=== PATIENT | male | born 1935 | race Caucasian/White ===

== ENCOUNTER → 2019-07-11 | Outpatient (CLI) | payer MEDICARE, OTHER | LOC: LAB FS 14:03 | PROVIDERS: ATTEND Family Medicine | DX: M79.89 Other specified soft tissue disorders (principal) | CPT/HCPCS: 36415; 85379 ==

== ENCOUNTER 2019-09-01 08:09 | Outpatient (RCR) | payer MEDICARE, OTHER ==
[2019-09-01 08:25] LABS: HEMATOCRIT 26 % (40-54); HEMOGLOBIN 8.5 G/DL (13.3-17.7); LYMPHOCYTES % (AUTO) 78 % (12-44); MEAN CORPUSCULAR HEMOGLOBIN 38 PG (25-34); MEAN CORPUSCULAR HGB CONC 33 G/DL (32-36); MEAN CORPUSCULAR VOLUME 114 FL (80-99); MEAN PLATELET VOLUME 9.2 FL (7.4-10.4); NEUTROPHILS % (AUTO) 12 % (42-75); PLATELET COUNT 207 10^3/uL (130-400); RED CELL DISTRIBUTION WIDTH 16.3 % (10.0-14.5); WHITE BLOOD COUNT 5.1 10^3/uL (4.3-11.0)
[2019-09-01 08:26] LABS: BASOPHILS % (AUTO) 0 % (0-10); EOSINOPHILS % (AUTO) 1 % (0-10); MONOCYTES # (AUTO) 0.5 X 10^3 (0.0-1.0); MONOCYTES % (AUTO) 10 % (0-12); NEUTROPHILS # (AUTO) 0.6 X 10^3 (1.8-7.8)
[2019-09-01 08:43] LABS: BAND NEUTROPHILS 1 %; BASOPHILS % (MANUAL) 0 %; EOSINOPHILS % (MANUAL) 3 %; LYMPHOCYTES % (MANUAL) 69 %; METAMYELOCYTES % 0 %; MONOCYTES % (MANUAL) 6 %; MYELOCYTES % 1 %; NEUTROPHILS % (MANUAL) 18 %; PROMYELOCYTES % 2 %
== END 2019-11-30 | disposition home or self-care (01) ==
LOC: LAB FS 08:09
PROVIDERS: ATTEND Internal Medicine Hematology & Oncology
DX: P59.9 Neonatal jaundice, unspecified (principal)
CPT/HCPCS: 36415; 85007; 85027

== ENCOUNTER 2019-11-24 10:40 | Outpatient (RCR) | payer MEDICARE, OTHER ==
[2019-11-24 14:45] LABS: HEMATOCRIT 37 % (40-54); HEMOGLOBIN 11.8 G/DL (13.3-17.7); LYMPHOCYTES % (AUTO) 73 % (12-44); MEAN CORPUSCULAR HEMOGLOBIN 37 PG (25-34); MEAN CORPUSCULAR HGB CONC 32 G/DL (32-36); MEAN CORPUSCULAR VOLUME 116 FL (80-99); MEAN PLATELET VOLUME 9.4 FL (7.4-10.4); MONOCYTES % (AUTO) 8 % (0-12); NEUTROPHILS % (AUTO) 14 % (42-75); PLATELET COUNT 143 10^3/uL (130-400); RED CELL DISTRIBUTION WIDTH 15.9 % (10.0-14.5)
[2019-11-24 14:46] LABS: BASOPHILS % (AUTO) 1 % (0-10); EOSINOPHILS # (AUTO) 0.2 10^3/uL (0.0-0.3); EOSINOPHILS % (AUTO) 5 % (0-10); LYMPHOCYTES # (AUTO) 2.9 X 10^3 (1.0-4.0); MONOCYTES # (AUTO) 0.3 X 10^3 (0.0-1.0); NEUTROPHILS # (AUTO) 0.6 X 10^3 (1.8-7.8)
[2019-11-24 16:03] LABS: BAND NEUTROPHILS 3 %; NEUTROPHILS % (MANUAL) 11 %
[2019-11-24 16:04] LABS: ATYPICAL LYMPHOCYTES 2 %; BASOPHILS % (MANUAL) 1 %; EOSINOPHILS % (MANUAL) 8 %; LYMPHOCYTES % (MANUAL) 71 %; MONOCYTES % (MANUAL) 4 %
== END 2020-02-22 | disposition home or self-care (01) ==
LOC: LAB FS 10:40
PROVIDERS: ATTEND Internal Medicine Hematology & Oncology
DX: D46.Z Other myelodysplastic syndromes (principal); D53.9 Nutritional anemia, unspecified
CPT/HCPCS: 36415; 85007; 85027

== ENCOUNTER → 2020-04-05 | Outpatient (CLI) | payer MEDICARE, OTHER ==
--- NOTE | 2020-04-05 10:16 | Diagnostic Imaging Report ---
Indication: Right knee pain 3 views the right knee show some meniscal calcification. Joint spaces are well-maintained. There is no fracture, dislocation or pathologic effusion. IMPRESSION: Degenerative meniscal change. No acute abnormality seen. Dictated by: Dictated on workstation # [id number]
== END ==
LOC: RAD FS 09:55
PROVIDERS: ATTEND Nurse Practitioner Family
DX: M17.11 Unilateral primary osteoarthritis, right knee (principal)
CPT/HCPCS: 73562

== ENCOUNTER → 2020-06-24 | Outpatient (CLI) | payer MEDICARE, OTHER ==
--- NOTE | 2020-06-24 15:47 | Diagnostic Imaging Report ---
PROCEDURE: MR imaging of the brain without contrast. TECHNIQUE: Multiplanar, multisequence MR imaging of the brain was performed without contrast. INDICATION: Stroke. COMPARISON: No prior studies are available for comparison. FINDINGS: Ventricles and sulci are prominent consistent with cerebral atrophy. Moderate periventricular and subcortical white matter signal foci are noted consistent with chronic microvascular ischemia. The normal expected flow voids within the carotid siphons are seen. There is no midline shift. No acute intra-axial or extra-axial hemorrhage is detected. No diffusion restriction is seen to suggest acute ischemia. The corpus callosum is unremarkable. The sella and parasellar structures are unremarkable. IMPRESSION: Chronic and senescent changes. No acute intracranial process is detected. Dictated by: Dictated on workstation # [id number]
== END ==
LOC: RAD 13:15
PROVIDERS: ATTEND Internal Medicine Hematology & Oncology
DX: I63.9 Cerebral infarction, unspecified (principal); G93.89 Other specified disorders of brain
CPT/HCPCS: 70551

== ENCOUNTER → 2022-02-26 | Outpatient (CLI) | payer MEDICARE ==
--- NOTE | 2022-02-26 16:07 | Diagnostic Imaging Report ---
PROCEDURE: MR imaging of the brain without contrast. TECHNIQUE: Multiplanar, multisequence MR imaging of the brain was performed without contrast. DATE: February 26, 2022. COMPARISON: MRI brain June 24, 2020. HISTORY: 87-year-old male, memory loss. FINDINGS: There is no restricted diffusion. There are no areas of abnormal intracranial susceptibility. There is proportional prominence of the ventricles and additional CSF spaces consistent with moderate to severe cerebral volume loss. There are extensive areas of T2 and FLAIR hyperintense signal in the periventricular and subcortical white matter which are nonspecific but most likely reflect extensive findings of chronic small vessel ischemic disease. There is no abnormal extra axial fluid collection. There is no acute intracranial hemorrhage. There is no mass effect or midline shift. There is a small polypoid lesion in the right maxillary sinus likely reflecting a mucous retention cyst or polyp. The mastoid air cells and middle ears are well-aerated. IMPRESSION: 1. No identified acute intracranial abnormality. 2. Moderate to severe cerebral volume loss and extensive probable findings of chronic small vessel ischemic disease. Dictated by: Dictated on workstation # [id number]
== END ==
LOC: RAD 14:19
PROVIDERS: ATTEND Family Medicine
DX: R41.3 Other amnesia (principal)
CPT/HCPCS: 70551

== ENCOUNTER 2022-11-15 20:11 | Emergency (ER) | payer MEDICARE ==
[~2022-11-15] VITALS: Ht 167.7 cm; Wt 68.0 kg
--- NOTE | 2022-11-15 20:22 | ED Head Injury ---
General Stated Complaint: FALL History of Present Illness Date Seen by Provider: Nov 15, 2022 Time Seen by Provider: 20:22 Initial Comments 87-year-old male with PMH of TIA/dementia/myelodysplasia who is on Eliquis to prevent clots forming from the medication he is on for the myelodysplasia, is brought in by EMS for 2 falls he had today. The first fall he had in the morning, he lost balance and fell back hitting the back of his head on the doorknob which resulted in a small puncture wound that bled a lot at home. Patient's states that the bleeding eventually stopped and he was okay. Then in the evening patient again had another fall in the bathroom due to imbalance, and fell backwards into the bathtub, and his could not get him out, and so she called 911. Since patient is on Eliquis, patient was brought to the ER to make sure he does not have any bleeding in his brain. In the ER there is no active external bleeding. Denies LOC with either fall, dizziness, headache, blurry vision, chest pain, shortness of breath. Allergies and Home Medications Allergies Coded Allergies: No Known Drug Allergies (Unverified , 11/15/22) Patient Home Medication List Home Medication List Reviewed: Yes Review of Systems Review of Systems Constitutional: no symptoms reported Eyes: No Symptoms Reported Ears, Nose, Mouth, Throat: no symptoms reported Respiratory: no symptoms reported Cardiovascular: no symptoms reported Gastrointestinal: no symptoms reported Genitourinary: no symptoms reported Musculoskeletal: no symptoms reported Skin: lesions Psychiatric/Neurological: See HPI Endocrine: No Symptoms Reported Hematologic/Lymphatic: No Symptoms Reported Physical Exam Vital Signs Vital Signs - First Documented Capillary Refill : Height, Weight, BMI Height: '" Weight: lbs. oz. kg; BMI Method: General Appearance: WD/WN, no apparent distress HEENT: PERRL/EOMI, normal ENT inspection Neck: non-tender, full range of motion, supple, normal inspection Cardiovascular: regular rate, rhythm Respiratory: chest non-tender, lungs clear, normal breath sounds Gastrointestinal: non tender, soft Back: normal inspection, no vertebral tenderness Extremities: normal range of motion Psychiatric: alert, oriented x 3 Crainal Nerves: normal hearing, normal speech, PERRL, other (Small 1 cm puncture wound which is superficial, is present in the subdural area of the scalp. No active bleeding. No need for sutures or ho.) Coordination/Gait: normal finger to nose Motor/Sensory: no motor deficit, no sensory deficit [place] Coma Score Best Eye Response: (4) Open Spontaneously Best Verbal Response: (5) Oriented Best Motor Response: (6) Obeys Commands Sandra Total: 15 Progress/Results/Core Measures Results/Orders My Orders Orders - MYA SERNA MD Ct Head Wo (11/15/22 20:22) Vital Signs/I&O 11/15/22 11/15/22 20:11 20:11 Temp 37.0 37.0 Pulse 74 74 Resp 16 16 B/P (MAP) 177/82 (113) 177/82 (113) Pulse Ox 97 97 O2 Delivery Room Air Room Air Progress Progress Note : Progress Note 1. FALL/ SCALP LACERATION: - CT HEAD: No acute finding -Concussion precautions given -Tylenol as needed for headache -Follow-up with PCP within the next 7 days -The patient was seen in the ED, and treated appropriately to presentation at a specific point in time. Patient is informed that there is a possibility that disease and illness can evolve and change in acuity rapidly or slowly after patient is discharged from the ER. Precautionary advice given to the patient for immediate return to ER if symptoms worsen or do not resolve, and to seek emergency care sooner rather than later. Pt also advised on the importance of PCP follow up and compliance with management and follow up plan with PCP and/or specialist, as this is part of the management plan. Pt verbally expressed understanding. Diagnostic Imaging Diagonstic Imaging: CT Plain Films/CT/US/NM/MRI: head Comments [facility] [place], [place] NAME: HOOD BARBA [facility] REC#: [id number] PT STATUS: REG ER : 1935 PHYSICIAN: MYA SERNA MD ADMIT DATE: 11/15/22/ER FS Draft Date of Exam:11/15/22 CT HEAD WO PROCEDURE: CT head without contrast. TECHNIQUE: Multiple contiguous axial images were obtained through the brain without the use of intravenous contrast. Auto Exposure Controls were utilized during the CT exam to meet ALARA standards for radiation dose reduction. INDICATION: Head trauma while on blood thinners. FINDINGS: There is prominence of the ventricles and sulci. There is no hydrocephalus or cerebral edema. There is no midline shift or mass-effect. There is no intracranial mass, hemorrhage or extra-axial fluid collection. There is some diffuse decreased attenuation of the periventricular white matter which is nonspecific. The visualized paranasal sinuses and mastoid air cells are clear. There is no regional area of decreased attenuation appreciated to suggest an acute CVA. IMPRESSION: 1. No acute intracranial process. 2. Age-appropriate atrophy. 3. Decreased attenuation of the periventricular white matter which is nonspecific, however, likely reflects senescent change and/or chronic small vessel ischemic disease. Dictated on workstation # [id number] Dict: 11/15/222040 Trans: 11/15/222042 [facility] [id number] Interpreted by: YAMILE ZARAGOZA MD Electronically signed by: Departure Impression Primary Impression: Recurrent falls Additional Impression: Occipital scalp laceration Qualified Codes: S01.01XA - Laceration without foreign body of scalp, initial encounter Disposition: HOME, SELF-CARE Condition: Stable Departure-Patient Inst. Referrals: EARLENE CARDONA MD (PCP/Family) Primary Care Physician Patient Instructions: Concussion, Adult (DC), Preventing Falls in Older Adults Add. Discharge Instructions: -Concussion precautions given -Tylenol as needed for headache -Follow-up with PCP within the next 7 days - Patient is informed that there is a possibility that disease and illness can evolve and change in acuity rapidly or slowly after patient is discharged from the ER. Precautionary advice given to the patient for immediate return to ER if symptoms worsen or do not resolve, and to seek emergency care sooner rather than later. Pt also advised on the importance of PCP follow up and compliance with management and follow up plan with PCP and/or specialist, as this is part of the management plan. MYA SERNA MD Nov 15, 2022 20:22
--- NOTE | 2022-11-15 20:43 | Diagnostic Imaging Report ---
PROCEDURE: CT head without contrast. TECHNIQUE: Multiple contiguous axial images were obtained through the brain without the use of intravenous contrast. Auto Exposure Controls were utilized during the CT exam to meet ALARA standards for radiation dose reduction. INDICATION: Head trauma while on blood thinners. FINDINGS: There is prominence of the ventricles and sulci. There is no hydrocephalus or cerebral edema. There is no midline shift or mass-effect. There is no intracranial mass, hemorrhage or extra-axial fluid collection. There is some diffuse decreased attenuation of the periventricular white matter which is nonspecific. The visualized paranasal sinuses and mastoid air cells are clear. There is no regional area of decreased attenuation appreciated to suggest an acute CVA. IMPRESSION: 1. No acute intracranial process. 2. Age-appropriate atrophy. 3. Decreased attenuation of the periventricular white matter which is nonspecific, however, likely reflects senescent change and/or chronic small vessel ischemic disease. Dictated by: Dictated on workstation # [id number]
[2022-11-15 21:30] VITALS: BP 177/82
== END 2022-11-15 21:31 | disposition home or self-care (01) ==
LOC: EDUNIT# 20:17 → ER FS 20:20
DX: S01.01XA Laceration without foreign body of scalp, initial encounter (principal); D46.9 Myelodysplastic syndrome, unspecified; Z79.01 Long term (current) use of anticoagulants; Z91.81 History of falling; W18.30XA Fall on same level, unspecified, initial encounter; W22.09XA Striking against other stationary object, initial encounter; Y92.002 Bathroom of unspecified non-institutional (private) residence as the place of occurrence of the external cause
CPT/HCPCS: 70450

== ENCOUNTER 2022-12-20 15:11 | Emergency (ER) | payer MEDICARE ==
[2022-12-20 15:44] LABS: BILIRUBIN,URINE NEGATIVE (NEGATIVE); CLARITY,URINE CLEAR; COLOR,URINE YELLOW; GLUCOSE, URINE (UA) TRACE (NEGATIVE); KETONES,URINE TRACE (NEGATIVE); LEUKOCYTE ESTERASE ,URINE NEGATIVE (NEGATIVE); NITRITE,URINE NEGATIVE (NEGATIVE); PROTEIN,URINE 2+ (NEGATIVE)
[2022-12-20 15:46] LABS: BACTERIA,URINE FEW /HPF
--- NOTE | 2022-12-20 15:55 | ED Fall/Injury ---
General Chief Complaint: Back Problems Stated Complaint: BACK PAIN Nursing Triage Note: Patient presents the ED with c/o lower back and pelvic pain after a fall. Patients reports patient fell morning. Patients states she has been administering Ibuprofen and alternating hot and cold compresses to patient's lower back. Patient reports pain has not improved. Source: patient History of Present Illness Date Seen by Provider: Dec 20, 2022 Time Seen by Provider: 15:17 Initial Comments 87 yo male presenting with family to the ED due to complaint of low back pain and suprapubic pain that has not improved since he had a fall 12/17. He has chronic balance issues and frequent falls despite using a walker. He usually is able to take Acetaminophen and or Ibuprofen and help control his pain. he also has tried alternating ice and heat to the low back but it was not improving so they decided to come to the ED to be evaluated for possible compression fracture or broken bone making the pain not go away. He denies hitting his head or losing consciousness. Occurred: other (12/17) Severity: moderate Injuries/Pain Location: abdomen (Suprapubic pain), back (lumbar spine pain) Context: lost balance Loss of Consciousness: no loss of consciousness Modifying Factors: Worse With Movement; Improves With Pain Medication (Tylenol is helping some) Associated Symptoms (Fall): Abdominal Pain (Suprapubic pain); No Chest Pain, No Confusion, No Dizziness, No Headache, No Lightheadedness, No Muscle Spasms, No Nausea/Vomiting, No Neck Pain, No Ringing in Ears, No Seizures, No Shortness of Air, No Slurred Speech; Trouble Walking (Chronic trouble walking but felt like his low back was worse since the fall on December 17) Allergies and Home Medications Allergies Coded Allergies: No Known Drug Allergies (Unverified , 11/15/22) Patient Home Medication List Home Medication List Reviewed: Yes Cephalexin (Cephalexin) 500 Mg Capsule, 500 MG PO TID Prescribed by: JAVID PAT on 12/20/22 163 Lidocaine (Lidocaine 5% Patch) 5 % Adh..patch, 1 EACH TP Q12H PRN for Lumbar pain/compression fx Prescribed by: JAVID PAT on 12/20/22 1635 Review of Systems Review of Systems Constitutional: No chills, No fever Eyes: Denies Blurred Vision, Denies Photophobia, Denies Vision Changes Ears, Nose, Mouth, Throat: denies ear pain, denies ear discharge, denies nose pain, denies nose discharge, denies epistaxis Respiratory: no symptoms reported Cardiovascular: no symptoms reported Gastrointestinal: see HPI Genitourinary: see HPI Musculoskeletal: see HPI Skin: No change in color (No bruising or change in color noted) Psychiatric/Neurological: Denies Numbness, Denies Paresthesia Past Kcnndtn-Ejytxt-Vooank Hx Patient Social History Tobacco Use?: No Use of E-Cig and/or Vaping dev: No Substance use?: No Alcohol Use?: Yes Alcohol type: Beer Alcohol Frequency: Rarely Pt feels they are or have been: No Immunizations Up To Date Influenza Vaccine Up-to-Date: Yes; Up-to-Date Past Medical History Surgery/Hospitalization HX: TIA; Mylodysplastic syndrome; CABAG; Rotator cuff repair; Vertigo; Physical Exam Vital Signs Vital Signs - First Documented 12/20/22 15:25 Temp 36.1 Pulse 71 Resp 16 B/P (MAP) 169/89 (115) Pulse Ox 98 O2 Delivery Room Air Capillary Refill : Less Than 3 Seconds Height, Weight, BMI Height: '" Weight: lbs. oz. kg; 24.00 BMI Method: General Appearance: WD/WN, no apparent distress HEENT: PERRL/EOMI, pharynx normal Neck: non-tender, full range of motion, supple, normal inspection Cardiovascular: normal peripheral pulses, regular rate, rhythm Respiratory: chest non-tender, lungs clear, normal breath sounds Gastrointestinal: normal bowel sounds, soft, no pulsatile mass; No distended, No guarding, No rebound; tenderness (Mild suprapubic tenderness to palpation) Back: no CVA tenderness, no vertebral tenderness (Points to his lower lumbar spine as area of pain but was not painful for palpation.) Extremities: normal range of motion, non-tender, normal capillary refill 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, no motor/sensory deficits, alert, oriented x 3 Skin: normal color, warm/dry Progress/Results/Core Measures Results/Orders Lab Results Laboratory Tests Test 12/20/22 15:25 Range/Units Urine Color YELLOW Urine Clarity CLEAR Urine pH 6.0 5-9 Urine Specific [place] 1.025 H 1.016-1.022 Urine Protein 2+ H NEGATIVE Urine Glucose (UA) TRACE H NEGATIVE Urine Ketones TRACE H NEGATIVE Urine Nitrite NEGATIVE NEGATIVE Urine Bilirubin NEGATIVE NEGATIVE Urine Urobilinogen 0.2 < = 1.0 MG/DL Urine Leukocyte Esterase NEGATIVE NEGATIVE Urine RBC (Auto) 1+ H NEGATIVE Urine RBC 2-5 H /HPF Urine WBC 5-10 H /HPF Urine Squamous Epithelial Cells 2-5 /HPF Urine Crystals NONE /LPF Urine Bacteria FEW H /HPF Urine Casts NONE /LPF Urine Mucus MODERATE H /LPF Urine Culture Indicated YES My Orders Orders - JAVID PAT MD Ua Culture If Indicated (12/20/22 15:39) Ct Abdomen/Pelvis Wo (12/20/22 15:40) Urine Culture (12/20/22 15:25) Vital Signs/I&O 12/20/22 12/20/22 15:25 16:49 Temp 36.1 36.1 Pulse 71 71 Resp 16 16 B/P (MAP) 169/89 (115) 169/89 Pulse Ox 98 98 O2 Delivery Room Air Room Air Blood Pressure Mean: 115 Progress Progress Note #1: Progress Note Potential diagnosis of lumbar spine compression fracture, musculoskeletal back pain, paraspinal muscle strain, pubic ramus fracture, contusion of the low back. Obtain urinalysis to look for UTI. We will also obtain a CT scan of the abdomen and pelvis to look at the abdominal pain as well as low back. Progress Note #2: Progress Note On my personal interpretation and review of his CT scan of abdomen/pelvis without IV contrast he has compression fracture of L2 but unsure if it was acute or chronic. I did not appreciate any acute intra-abdominal pathology to cause his pain. Urinalysis showed WBC with bacteria so will cover him for UTI with cephalexin 500 mg po tid x 7 days. Progress Note #3: Progress Note I reviewed the radiologist report that the CT scan of the abdomen and pelvis without IV contrast. They felt that there were endplate compression fractures of L1 and L2 and indeterminate acuity versus acute on subacute. There is no significant cord compression. I reviewed the findings with the patient and family. Counseled on continuing acetaminophen and ibuprofen as needed for helping with pain. Will also send prescription for lidocaine patches 5% to wear 12 hours and off 12 hours to help with his low back pain. This would help prevent him from having a narcotic or additional pain medicine that can make him more unsteady. Encouraged follow-up with clinic and they may consider pain management or possible vertebroplasty to help with his symptoms if it persist or worsens. Take antibiotics to help treat for UTI and make sure he is drinking plenty of fluids. Diagnostic Imaging Diagonstic Imaging: CT Plain Films/CT/US/NM/MRI: abdomen, pelvis Comments [facility] [place], [place] NAME: HOOD BARBA [facility] REC#: [id number] PT STATUS: REG ER : 1935 PHYSICIAN: JAVID PAT MD ADMIT DATE: 12/20/22/ER FS Signed Date of Exam:12/20/22 CT ABDOMEN/PELVIS WO PROCEDURE: CT abdomen and pelvis without contrast. TECHNIQUE: Multiple contiguous axial images were obtained through the abdomen and pelvis without the use of intravenous contrast. Auto Exposure Controls were utilized during the CT exam to meet ALARA standards for radiation dose reduction. INDICATION: Fall results in suprapubic and back pain. COMPARISON: No relevant comparison. FINDINGS: There are L1 and L2 superior endplate fracture deformities. The L1 superior endplate shows mild retropulsion of about 2 mm. There is some adjacent paraspinal stranding however the fracture appears sclerotic. The L2 fracture shows convincing acute to subacute lucent components also with some paraspinal stranding. L2 fracture of superior endplate is retropulsed about 2 mm. The remaining lumbar statures appear unremarkable. There is no listhesis. No facet dislocation. The bony 3rd column is degenerated but nonacute throughout the visible lumbar and thoracic spine. The bony pelvis shows demineralization and degenerative disease but no pelvic fracture. There is noninflamed sigmoid diverticulosis. No findings of abdominopelvic intraperitoneal hemorrhage. There are gallstones within the lumen of the distended gallbladder. No bile duct dilatation. Spleen, adrenals and pancreas nonacute. The atherosclerotic aorta is nonaneurysmal. The lung bases nonacute. There is a tiny left pleural effusion and a benign granuloma in the right lower lobe lung. The visible lower rib segments appear nonacute. IMPRESSION: Acute to subacute appearing L2 superior endplate fracture with mild retropulsion and no involvement of the bony 3rd column and L1 superior endplate fracture is mildly retropulsed but is more acuity indeterminate. No other potential recent injury and no listhesis. No findings of this unenhanced exam to suggest abdominopelvic solid or hollow visceral injury. Stones within the lumen of the distended gallbladder noted. Dictated by: Dictated on workstation # [id number] Dict: 12/20/22 1604 Trans: 12/20/22 1636 PJE [id number] Interpreted by: SHANNON SMALL Electronically signed by: SHANNON SMALL 12/20/22 9006 Reviewed: Reviewed by Me Departure Impression Primary Impression: Compression fracture of second lumbar vertebra Qualified Codes: S32.020A - Wedge compression fracture of second lumbar vertebra, initial encounter for closed fracture Additional Impressions: Frequent falls Acute cystitis without hematuria Disposition: HOME, SELF-CARE Condition: Stable Departure-Patient Inst. Decision time for Depature: 16:49 Referrals: EARLENE CARDONA MD (PCP) Primary Care Physician Patient Instructions: Vertebral Compression Fracture ED, Urinary Tract Infection, Adult ED Add. Discharge Instructions: Try to stay well-hydrated to drink plenty of fluids and help treat the urine infection. Take the full course of antibiotics for the urine infection. Continue with alternating ice and heat to the low back for pain. All discharge instructions reviewed with patient and/or family. Voiced understanding. Scripts Lidocaine (Lidocaine 5% Patch) 5 % Adh..patch 1 EACH TP Q12H PRN for Lumbar pain/compression fx MDD 2 for 15 Days, #15 PATCH 0 Refills 2 patches max for 12 hours, then 12 hours patch-free period. Prov: JAVID PAT MD 12/20/22 Cephalexin (Cephalexin) 500 Mg Capsule 500 MG PO TID for UTI for 7 Days, #21 CAP 0 Refills Prov: JAVID PAT MD 12/20/22 JAVID PAT MD Dec 20, 2022 15:55
--- NOTE | 2022-12-20 16:23 | Diagnostic Imaging Report ---
PROCEDURE: CT abdomen and pelvis without contrast. TECHNIQUE: Multiple contiguous axial images were obtained through the abdomen and pelvis without the use of intravenous contrast. Auto Exposure Controls were utilized during the CT exam to meet ALARA standards for radiation dose reduction. INDICATION: Fall results in suprapubic and back pain. COMPARISON: No relevant comparison. FINDINGS: There are L1 and L2 superior endplate fracture deformities. The L1 superior endplate shows mild retropulsion of about 2 mm. There is some adjacent paraspinal stranding however the fracture appears sclerotic. The L2 fracture shows convincing acute to subacute lucent components also with some paraspinal stranding. L2 fracture of superior endplate is retropulsed about 2 mm. The remaining lumbar statures appear unremarkable. There is no listhesis. No facet dislocation. The bony 3rd column is degenerated but nonacute throughout the visible lumbar and thoracic spine. The bony pelvis shows demineralization and degenerative disease but no pelvic fracture. There is noninflamed sigmoid diverticulosis. No findings of abdominopelvic intraperitoneal hemorrhage. There are gallstones within the lumen of the distended gallbladder. No bile duct dilatation. Spleen, adrenals and pancreas nonacute. The atherosclerotic aorta is nonaneurysmal. The lung bases nonacute. There is a tiny left pleural effusion and a benign granuloma in the right lower lobe lung. The visible lower rib segments appear nonacute. IMPRESSION: Acute to subacute appearing L2 superior endplate fracture with mild retropulsion and no involvement of the bony 3rd column and L1 superior endplate fracture is mildly retropulsed but is more acuity indeterminate. No other potential recent injury and no listhesis. No findings of this unenhanced exam to suggest abdominopelvic solid or hollow visceral injury. Stones within the lumen of the distended gallbladder noted. Dictated by: Dictated on workstation # [id number]
[2022-12-20] MEDS ORDERED: CEPH500C PO (16:34)
[2022-12-20] MEDS ORDERED: LIDO700A45 TP (16:35)
[2022-12-20 16:49] VITALS: BP 169/89
== END 2022-12-20 16:49 | disposition home or self-care (01) ==
LOC: EDUNIT# 15:11 → ER FS 15:12
DX: S32.028A Other fracture of second lumbar vertebra, initial encounter for closed fracture (principal); N30.00 Acute cystitis without hematuria; R82.71 Bacteriuria; W18.30XA Fall on same level, unspecified, initial encounter
CPT/HCPCS: 74176; 81000; 87088

== ENCOUNTER 2023-07-07 17:31 | Emergency (ER) | payer MEDICARE ==
[~2023-07-07] VITALS: Ht 167 cm; Wt 59.8 kg
[~2023-07-07 17:31] MED LIST: CEPH500C PO; LIDO700A45 TP
--- NOTE | 2023-07-07 17:43 | ED Fall/Injury ---
General Chief Complaint: Trauma-Non Activation Stated Complaint: FALL,HEAD LAC Source: patient, family History of Present Illness Date Seen by Provider: Jul 07, 2023 Time Seen by Provider: 17:34 Initial Comments 88-year-old male presenting from home by private vehicle after having a fall approximately an hour prior to arrival. He has an abrasion to his right scalp on the frontal area. Bleeding is controlled. He is not having any nausea or vomiting. Family reported that patient is taking Eliquis. He has general weakness and is hard of hearing as well as slow to answer questions. Occurred: this evening Severity: mild Injuries/Pain Location: head (right frontal scalp abrasion) Context: tripped Loss of Consciousness: no loss of consciousness Associated Symptoms (Fall): No Abdominal Pain, No Chest Pain; Confusion (dementia), Headache; No Nausea/Vomiting, No Neck Pain; Trouble Walking Allergies and Home Medications Allergies Coded Allergies: No Known Drug Allergies (Unverified , 11/15/22) Patient Home Medication List Home Medication List Reviewed: Yes Cephalexin (Cephalexin) 500 Mg Capsule, 500 MG PO TID Prescribed by: JAVID PAT on 12/20/22 1634 Lidocaine (Lidocaine 5% Patch) 5 % Adh..patch, 1 EACH TP Q12H PRN for Lumbar pain/compression fx Prescribed by: JAVID PAT on 12/20/22 1635 Review of Systems Review of Systems Constitutional: No chills, No fever; weakness (general) Eyes: No Symptoms Reported Ears, Nose, Mouth, Throat: no symptoms reported Respiratory: no symptoms reported Cardiovascular: no symptoms reported Gastrointestinal: no symptoms reported Skin: see HPI (abrasion to right frontal scalp) Psychiatric/Neurological: Headache, Weakness (generalized) Past Leshbpe-Hztbhs-Hytplv Hx Past Medical History Surgery/Hospitalization HX: TIA; Mylodysplastic syndrome; CABAG; Rotator cuff repair; Vertigo; Physical Exam Vital Signs Vital Signs - First Documented 07/07/23 17:36 Temp 36.3 Pulse 66 Resp 16 B/P (MAP) 172/62 (98) Pulse Ox 96 O2 Delivery Room Air Capillary Refill : Height, Weight, BMI Height: '" Weight: lbs. oz. kg; 24.00 BMI Method: General Appearance: no apparent distress HEENT: PERRL/EOMI Neck: non-tender, full range of motion, supple Cardiovascular: normal peripheral pulses Respiratory: chest non-tender, lungs clear, normal breath sounds Gastrointestinal: normal bowel sounds, non tender, soft Extremities: normal range of motion, non-tender Neurologic/Psychiatric: alert Skin: warm/dry, other (superficial abrasion right frontal scalp) Sandra Coma Score Best Eye Response: (4) Open Spontaneously Best Verbal Response: (4) Confused Conversation Best Motor Response: (6) Obeys Commands Sandra Total: 14 Progress/Results/Core Measures Results/Orders Lab Results Laboratory Tests Test 07/07/23 17:45 Range/Units Urine Color YELLOW Urine Clarity CLEAR Urine pH 6.5 5-9 Urine Specific [place] 1.010 L 1.016-1.022 Urine Protein TRACE H NEGATIVE Urine Glucose (UA) NEGATIVE NEGATIVE Urine Ketones NEGATIVE NEGATIVE Urine Nitrite NEGATIVE NEGATIVE Urine Bilirubin NEGATIVE NEGATIVE Urine Urobilinogen 0.2 < = 1.0 MG/DL Urine Leukocyte Esterase NEGATIVE NEGATIVE Urine RBC (Auto) 3+ H NEGATIVE Urine RBC 25-50 H /HPF Urine WBC NONE /HPF Urine Crystals NONE /LPF Urine Bacteria NEGATIVE /HPF Urine Casts NONE /LPF Urine Mucus NEGATIVE /LPF Urine Culture Indicated NO My Orders Orders - JAVID APT MD Ua Culture If Indicated (07/07/23 17:37) Ct Head Wo (07/07/23 17:37) Straight Cath For Spec.-Adult (07/07/23 17:43) Vital Signs/I&O 07/07/23 07/07/23 17:36 18:39 Temp 36.3 Pulse 66 60 Resp 16 16 B/P (MAP) 172/62 (98) 160/69 Pulse Ox 96 95 O2 Delivery Room Air Room Air Progress Progress Note #1: Progress Note Differential diagnosis includes subarachnoid hemorrhage, subdural hemorrhage, intracranial hemorrhage, skull fracture, minor head injury, concussion without loss of consciousness, UTI. Family reports patient is taking Eliquis. He does have a history of myelodysplastic syndrome. Order CT scan of the head without contrast to look for acute bleeding or fracture. Straight cath UA to check his urine for infection. Progress Note #2: Time: 18:24 Progress Note Straight cath urinalysis did not demonstrate infection. There was some blood likely secondary to the straight cath. CT scan of the head was read out as no acute intracranial hemorrhage or process. He has chronic senescent changes. D/w Daughter, his main caregiver. She advised that the patient has been having weakness after he gets a shot to treat side effects of his other medicines. They recently gave him a 1 month holiday and he regained some strength. Then he got his first reduced dose yesterday. She was relieved to hear that he did not have any bleeding since he takes eliquis. Discharge back to home. Counseled on follow up and return precautions. Diagnostic Imaging Diagonstic Imaging: CT Plain Films/CT/US/NM/MRI: head Comments NAME: HOOD BARBA [facility] REC#: [id number] PT STATUS: REG ER : 1935 PHYSICIAN: JAVID PAT MD ADMIT DATE: 07/07/23/ER FS Draft Date of Exam:07/07/23 CT HEAD WO PROCEDURE: CT head without contrast. TECHNIQUE: Multiple contiguous axial images were obtained through the brain without the use of intravenous contrast. Auto Exposure Controls were utilized during the CT exam to meet ALARA standards for radiation dose reduction. INDICATION: Head injury from a fall with right scalp abrasion There is generalized atrophy. There is decreased density in the periventricular white matter both hemispheres. There are no intracranial hemorrhages. There are no masses or pathologic extra-axial fluid collections. There are no skull fractures seen. IMPRESSION: Senescent changes of the brain with diffuse cerebral degeneration and chronic ischemic leukoencephalopathy. No acute intracranial abnormalities seen. Dictated on workstation # [id number] Dict: 07/07/23 1808 Trans: 07/07/23 1812 [facility] [id number] Interpreted by: FABIOLA CONDE MD Electronically signed by: Reviewed: Reviewed by Me Departure Impression Primary Impression: Minor head injury without loss of consciousness Qualified Codes: S09.90XA - Unspecified injury of head, initial encounter Additional Impressions: Abrasion of scalp, initial encounter Fall at home Qualified Codes: W19.XXXA - Unspecified fall, initial encounter; Y92.009 - Unspecified place in unspecified non-institutional (private) residence as the place of occurrence of the external cause Disposition: 01 HOME, SELF-CARE Condition: Stable Departure-Patient Inst. Decision time for Depature: 18:32 Referrals: EARLENE CARDONA MD (PCP/Family) Primary Care Physician Patient Instructions: Preventing Falls ED, Minor Head Injury, Adult ED Add. Discharge Instructions: CT scan does not show bleeding, skull fracture or acute stroke. His urine was clear of infection. Follow up with primary care about falling and weakness. All discharge instructions reviewed with patient and/or family. Voiced understanding. JAVID PAT MD Jul 07, 2023 17:43
[2023-07-07 17:56] LABS: BILIRUBIN,URINE NEGATIVE (NEGATIVE); CLARITY,URINE CLEAR; COLOR,URINE YELLOW; GLUCOSE, URINE (UA) NEGATIVE (NEGATIVE); KETONES,URINE NEGATIVE (NEGATIVE); LEUKOCYTE ESTERASE ,URINE NEGATIVE (NEGATIVE); NITRITE,URINE NEGATIVE (NEGATIVE); PH,URINE 6.5 (5-9); PROTEIN,URINE TRACE (NEGATIVE)
[2023-07-07 18:00] LABS: RBC,URINE 25-50 /HPF
[2023-07-07 18:01] LABS: BACTERIA,URINE NEGATIVE /HPF
--- NOTE | 2023-07-07 18:12 | Diagnostic Imaging Report ---
PROCEDURE: CT head without contrast. TECHNIQUE: Multiple contiguous axial images were obtained through the brain without the use of intravenous contrast. Auto Exposure Controls were utilized during the CT exam to meet ALARA standards for radiation dose reduction. INDICATION: Head injury from a fall with right scalp abrasion There is generalized atrophy. There is decreased density in the periventricular white matter both hemispheres. There are no intracranial hemorrhages. There are no masses or pathologic extra-axial fluid collections. There are no skull fractures seen. IMPRESSION: Senescent changes of the brain with diffuse cerebral degeneration and chronic ischemic leukoencephalopathy. No acute intracranial abnormalities seen. Dictated by: Dictated on workstation # [id number]
[2023-07-07 18:39] VITALS: BP 160/69
== END 2023-07-07 18:39 | disposition home or self-care (01) ==
LOC: EDUNIT# 17:31 → ER FS 17:32
DX: S09.90XA Unspecified injury of head, initial encounter (principal); S00.01XA Abrasion of scalp, initial encounter; W01.0XXA Fall on same level from slipping, tripping and stumbling without subsequent striking against object, initial encounter; Y92.009 Unspecified place in unspecified non-institutional (private) residence as the place of occurrence of the external cause
CPT/HCPCS: 51701; 70450; 81000

== ENCOUNTER 2023-07-10 12:32 | Inpatient (IN) | payer MEDICARE ==
[~2023-07-10] VITALS: Ht 167 cm; Wt 54.0 kg
--- NOTE | 2023-07-10 12:38 | ED General ---
General Stated Complaint: AMS History of Present Illness Date Seen by Provider: Jul 10, 2023 Time Seen by Provider: 12:37 Initial Comments 88 yr M with PMH of Alzheimer's Dementia/ Myelodysplasia/ CAD with stents in 2007 on Eliquis, is brought in by EMS with c/o generalized weakness for the past few days.. Patient is unable to provide history due to his dementia and is the historian. Patient has been having multiple falls and was brought in by EMS a couple days ago on July 07 and had a head CT which was negative. Patient is unable to stand on his own today and is extremely lethargic. Patient's reports that he has not been drinking anything at all over the past few days. No known sick contacts. Denies fever and chills, nausea and vomiting, diarrhea, cough. Allergies and Home Medications Allergies Coded Allergies: No Known Drug Allergies (Unverified , 11/15/22) Patient Home Medication List Home Medication List Reviewed: Yes Cephalexin (Cephalexin) 500 Mg Capsule, 500 MG PO TID Prescribed by: JAVID PAT on 12/20/22 1634 Lidocaine (Lidocaine 5% Patch) 5 % Adh..patch, 1 EACH TP Q12H PRN for Lumbar pain/compression fx Prescribed by: JAVID PAT on 12/20/22 1635 Review of Systems Review of Systems Constitutional: see HPI, malaise Psychiatric/Neurological: See HPI Past Mqaswkn-Qezlyv-Ntxnpp Hx Past Medical History Surgery/Hospitalization HX: TIA; Mylodysplastic syndrome; CABAG; Rotator cuff repair; Vertigo; Physical Exam Vital Signs Vital Signs - First Documented 07/10/23 12:32 Temp 36.5 Pulse 70 Resp 15 B/P (MAP) 159/64 (95) O2 Delivery Room Air Capillary Refill : Height, Weight, BMI Height: '" Weight: lbs. oz. kg; 21.00 BMI Method: General Appearance: No Apparent Distress, WD/WN, Thin, Other (Dry mucous membranes and tenting of skin present) HEENT: PERRL/EOMI, Normal ENT Inspection Neck: Full Range of Motion, Normal Inspection Respiratory: Chest Non Tender, Lungs Clear, Normal Breath Sounds, No Accessory Muscle Use Cardiovascular: Regular Rate, Rhythm, No Edema Gastrointestinal: Normal Bowel Sounds, Non Tender, Soft Back: Normal Inspection, No CVA Tenderness Neurologic/Psychiatric: Alert, Other (Patient has dementia so difficult to do a HOT STICK MAN exam since patient is not really able to cooperate or participate actively in the exam) Skin: Pallor Progress/Results/Core Measures Suspected Sepsis SIRS Temperature: Pulse: Respiratory Rate: Laboratory Tests 07/10/23 12:53: White Blood Count 4.2L Blood Pressure / Mean: Laboratory Tests 07/10/23 12:53: Creatinine 1.45H, INR Comment 1.1, Platelet Count 120L, Total Bilirubin 2.9H Results/Orders Lab Results Laboratory Tests Test 07/10/23 12:53 07/10/23 13:28 07/10/23 13:45 Range/Units White Blood Count 4.2 L 4.3-11.0 10^3/uL Red Blood Count 2.82 L 4.30-5.52 10^6/uL Hemoglobin 11.0 L 13.3-17.7 g/dL Hematocrit 33 L 40-54 % Mean Corpuscular Volume 118 H 80-99 fL Mean Corpuscular Hemoglobin 39 H 25-34 pg Mean Corpuscular Hemoglobin Concent 33 32-36 g/dL Red Cell Distribution Width 15.9 H 10.0-14.5 % Platelet Count 120 L 130-400 10^3/uL Mean Platelet Volume 10.8 9.0-12.2 fL Immature Granulocyte % (Auto) 1 % Neutrophils (%) (Auto) 30 L 42-75 % Lymphocytes (%) (Auto) 64 H 12-44 % Monocytes (%) (Auto) 4 0-12 % Eosinophils (%) (Auto) 0 0-10 % Basophils (%) (Auto) 1 0-10 % Neutrophils # (Auto) 1.3 L 1.8-7.8 10^3/uL Lymphocytes # (Auto) 2.7 1.0-4.0 10^3/uL Monocytes # (Auto) 0.2 0.0-1.0 10^3/uL Eosinophils # (Auto) 0.0 0.0-0.3 10^3/uL Basophils # (Auto) 0.0 0.0-0.1 10^3/uL Immature Granulocyte # (Auto) 0.0 0.0-0.1 10^3/uL Percent Immature Platelet Fraction 5.5 0.0-7.6 % Prothrombin Time 14.1 12.2-14.7 SEC INR Comment 1.1 0.8-1.4 Activated Partial Thromboplast Time 31 24-35 SEC Sodium Level 140 135-145 MMOL/L Potassium Level 3.7 3.6-5.0 MMOL/L Chloride Level 101 98-107 MMOL/L Carbon Dioxide Level 27 21-32 MMOL/L Anion Gap 12 5-14 MMOL/L Blood Urea Nitrogen 21 H 7-18 MG/DL Creatinine 1.45 H 0.60-1.30 MG/DL Estimat Glomerular Filtration Rate 46 BUN/Creatinine Ratio 14 Glucose Level 98 70-105 MG/DL Calcium Level 9.1 8.5-10.1 MG/DL Corrected Calcium 9.7 8.5-10.1 MG/DL Magnesium Level 2.1 1.6-2.4 MG/DL Total Bilirubin 2.9 H 0.1-1.0 MG/DL Aspartate Amino Transf (AST/SGOT) 20 5-34 U/L Alanine Aminotransferase (ALT/SGPT) 11 0-55 U/L Alkaline Phosphatase 111 40-136 U/L Troponin I < 0.30 <0.30 NG/ML Pro-B-Type Natriuretic Peptide 53210.0 H <450.0 PG/ML Total Protein 6.4 6.4-8.2 GM/DL Albumin 3.3 3.2-4.5 GM/DL Urine Color YELLOW Urine Clarity TURBID Urine pH 6.0 5-9 Urine Specific [place] 1.020 1.016-1.022 Urine Protein 2+ H NEGATIVE Urine Glucose (UA) NEGATIVE NEGATIVE Urine Ketones TRACE H NEGATIVE Urine Nitrite POSITIVE H NEGATIVE Urine Bilirubin NEGATIVE NEGATIVE Urine Urobilinogen 0.2 < = 1.0 MG/DL Urine Leukocyte Esterase 3+ H NEGATIVE Urine RBC (Auto) 2+ H NEGATIVE Urine RBC /HPF Urine WBC TNTC H /HPF Urine Crystals NONE /LPF Urine Bacteria /HPF Urine Casts NONE /LPF Urine Mucus NEGATIVE /LPF Urine Culture Indicated YES Influenza Type A (RT-PCR) Not Detected Not Detecte Influenza Type B (RT-PCR) Not Detected Not Detecte SARS-CoV-2 RNA (RT-PCR) Not Detected Not Detecte My Orders Orders - MYA SERNA MD Chest 1 View Ap/Pa Only (07/10/23 12:57) Cbc And Automated Diff (07/10/23 12:59) Comprehensive Metabolic Panel (07/10/23 12:59) Lactic Acid Analyzer (07/10/23 12:59) Magnesium (07/10/23 12:59) Protime With Inr (07/10/23 12:59) Partial Thromboplastin Time (07/10/23 12:59) Ua Culture If Indicated (07/10/23 12:59) Blood Culture (07/10/23 12:59) Influenza A And B By Pcr (07/10/23 12:59) Probnp Fs (07/10/23 12:59) Troponin I Fs (07/10/23 12:59) Covid 19 Inhouse Test (07/10/23 12:59) Catheter(Urinary) Insert & Ass 03,15 (07/10/23 13:00) Lidocaine 2% (Urojet) (Lidocaine 2% (Uro (07/10/23 13:00) Ed Iv/Invasive Line Start (07/10/23 13:22) Urine Culture (07/10/23 13:28) Ceftriaxone Iv/Im (Ceftriaxone Iv/Im) (07/10/23 14:30) Lactic Acid Analyzer (07/10/23 14:18) Medications Given in ED Current Medications Medications Dose Ordered Sig/Antonio Route Start Time Stop Time Status Last Admin Dose Admin Lidocaine HCl 10 ml ONCE ONCE TOP 07/10/23 13:00 07/10/23 13:01 DC 07/10/23 13:13 10 ML Vital Signs/I&O 07/10/23 12:32 Temp 36.5 Pulse 70 Resp 15 B/P (MAP) 159/64 (95) O2 Delivery Room Air Capillary Refill : Progress Note : Progress Note 1. GENERALIZED WEAKNESS DUE TO ACUTE CYSTITIS WITH HEMATURIA & DEHYDRATION: - CXR: no acute findings - UA: Positive for nitrates, leukocyte esterase, RBC, WBC, bacteria, trace ketones - CBC : WBC is low due to myelodysplasia -CMP: Creatinine is elevated 1.45 -Troponin undetectable - COVID test/ Rapid flu: negative -Ceftriaxone 1 g IV stat -NS IVF 250 mL/h -Discussed with resident on-call who works with Dr. Willoughby, hospitalist: Accepted for admission to stepdown unit 2. ELEVATED BNP: - BNP is 34,928 - Will benefit from echo and cardiology consult ECG Initial ECG Impression Date: Jul 10, 2023 Initial ECG Impression Time: 12:45 Initial ECG Rate: 73 Initial ECG Rhythm: Normal Sinus Initial ECG Impression: Nonspecific Changes Diagnostic Imaging Diagonstic Imaging: Xray Plain Films/CT/US/NM/MRI: chest Comments [facility] [place] NAME: HOOD BARBA [facility] REC#: [id number] PT STATUS: REG ER : 1935 PHYSICIAN: MYA SERNA MD ADMIT DATE: 07/10/23/ER FS Signed Date of Exam:07/10/23 CHEST 1 VIEW AP/PA ONLY Indication: Generalized weakness COMPARISON: None available. TECHNIQUE: Single radiograph chest dated 07/10/2023 FINDINGS: Postsurgical changes of a CABG. The cardiac silhouette is within normal limits in size. No significant pulmonary vascular congestion. Calcified granuloma overlying the right lung base. The lungs are otherwise clear of focal pulmonary opacity. No significant pleural effusion. No pneumothorax. No acute osseous abnormality. IMPRESSION: Chronic and postsurgical changes as described above without superimposed acute cardiopulmonary abnormality. Dictated by: Dictated on workstation # [id number] Dict: 07/10/23 1314 Trans: 07/10/23 1329 [facility] [id number] Interpreted by: TIARA YAÑEZ MD Electronically signed by: TIARA YAÑEZ MD 07/10/23 1329 Departure Communication (Admissions) Time/Spoke to Admitting Phy: 14:25 Discussed with resident, Dr. Valencia, who is working with attending Dr. Willoughby. We will admit to stepdown. Impression Primary Impression: Generalized weakness Additional Impressions: Acute cystitis with hematuria Dehydration Elevated brain natriuretic peptide (BNP) level Disposition: 30 STILL A PATIENT Condition: Stable Admissions Decision to Admit Reason: Admit from ER (General) Decision to Admit/Date: Jul 10, 2023 Time/Decision to Admit Time: 13:30 Transfer Method of Transfer: EMS Departure-Patient Inst. Referrals: EARLENE CARDONA MD (PCP/Family) Primary Care Physician MYA SERNA MD Jul 10, 2023 12:38
[2023-07-10] MEDS ORDERED: LIDOCAINE UROJET 2% GEL 10 ML PKG TOP ONE (13:00)
[2023-07-10 13:03] LABS: BASOPHILS % (AUTO) 1 % (0-10); EOSINOPHILS % (AUTO) 0 % (0-10); HEMATOCRIT 33 % (40-54); LYMPHOCYTES # (AUTO) 2.7 10^3/uL (1.0-4.0); LYMPHOCYTES % (AUTO) 64 % (12-44); MEAN CORPUSCULAR HEMOGLOBIN 39 pg (25-34); MEAN CORPUSCULAR HGB CONC 33 g/dL (32-36); MEAN CORPUSCULAR VOLUME 118 fL (80-99); MEAN PLATELET VOLUME 10.8 fL (9.0-12.2); MONOCYTES # (AUTO) 0.2 10^3/uL (0.0-1.0); MONOCYTES % (AUTO) 4 % (0-12); NEUTROPHILS # (AUTO) 1.3 10^3/uL (1.8-7.8); NEUTROPHILS % (AUTO) 30 % (42-75); PLATELET COUNT 120 10^3/uL (130-400); WHITE BLOOD COUNT 4.2 10^3/uL (4.3-11.0)
[2023-07-10 13:09] LABS: INR 1.1 (0.8-1.4); PROTHROMBIN TIME PATIENT 14.1 SEC (12.2-14.7)
[2023-07-10 13:17] LABS: BILIRUBIN,TOTAL 2.9 MG/DL (0.1-1.0); BUN/CREATININE RATIO 14; CALCIUM 9.1 MG/DL (8.5-10.1); CARBON DIOXIDE 27 MMOL/L (21-32); CHLORIDE 101 MMOL/L (98-107); CREATININE SERUM 1.45 MG/DL (0.60-1.30); GFR ESTIMATED 46; GLUCOSE 98 MG/DL (70-105); MAGNESIUM 2.1 MG/DL (1.6-2.4); POTASSIUM 3.7 MMOL/L (3.6-5.0); SODIUM 140 MMOL/L (135-145)
[2023-07-10 13:18] LABS: ALANINE AMINOTRANSFERASE 11 U/L (0-55); ALBUMIN 3.3 GM/DL (3.2-4.5); ALKALINE PHOSPHATASE 111 U/L (40-136); TOTAL PROTEIN 6.4 GM/DL (6.4-8.2)
--- NOTE | 2023-07-10 13:28 | Diagnostic Imaging Report ---
Indication: Generalized weakness COMPARISON: None available. TECHNIQUE: Single radiograph chest dated 07/10/2023 FINDINGS: Postsurgical changes of a CABG. The cardiac silhouette is within normal limits in size. No significant pulmonary vascular congestion. Calcified granuloma overlying the right lung base. The lungs are otherwise clear of focal pulmonary opacity. No significant pleural effusion. No pneumothorax. No acute osseous abnormality. IMPRESSION: Chronic and postsurgical changes as described above without superimposed acute cardiopulmonary abnormality. Dictated by: Dictated on workstation # [id number]
[2023-07-10 13:32] LABS: BILIRUBIN,URINE NEGATIVE (NEGATIVE); CLARITY,URINE TURBID; COLOR,URINE YELLOW; GLUCOSE, URINE (UA) NEGATIVE (NEGATIVE); KETONES,URINE TRACE (NEGATIVE); LEUKOCYTE ESTERASE ,URINE 3+ (NEGATIVE); NITRITE,URINE POSITIVE (NEGATIVE); PROTEIN,URINE 2+ (NEGATIVE)
[2023-07-10 13:34] LABS: WBC,URINE TNTC /HPF
[2023-07-10] MEDS ORDERED: cefTRIAXone IV/IM 1,000 MG in NS (IVPB) 50 ML 50 ML IV ONE (14:30)
[2023-07-10] MEDS ORDERED: NS IV 1000 ML 1,000 ML IV STA (14:39)
--- NOTE | 2023-07-10 14:56 | History & Physical-Hospitalist ---
CAITLYN TORREZ MD,RESIDENT 07/10/23 8096: History of Present Illness HPI/Chief Complaint CC: Generalized weakness, recurrent falls HPI: Pt is an 88yo male with a medical history significant for Alzheimer's dementia, CAD s/p CABGx2 2007, h/o CVA 2017, hypothyroidism, and myelodysplastic syndrome who presented to the ED for increased generalized weakness, recurrent falls, and dehydration. Per Pt's , over the last week or so, the Pt has been feeling progressively weaker with decreased PO, dehydrated, and he has had more falls than usual, one where he hit his head (07/07), CT NEG for acute process, which is out of the ordinary for him. In the ED, a UA demonstrated a UTI, associated with elevated WBCs. A pro-BNP was high elevated, CXR unremarkable for acute processes. The Pt was admitted to the ICU for further management. Source: family Exam Limitations: other (Cognition) Date Seen 07/10/23 Time Seen by a Provider: 16:30 Attending Physician Enoc Neumann MD PCP Admitting Physician: Attending Physician: Referring Physician Date of Admission Home Medications & Allergies Home Medications Reviewed patient Home Medication Reconciliation performed by pharmacy medication reconciliations lab technician and/or nursing. Patients Allergies have been reviewed. Allergies Allergies Coded Allergies lactose (Verified Allergy, Intermediate, Diarrhea, 07/10/23) Past Qoybrff-Qazmny-Drywze Hx Patient Social History Tobacco Use?: No Smoking Status: Former Smoker Smokeless Tobacco Frequency: Never a User Use of E-Cig and/or Vaping dev: No Use of E-Cig and/or Vaping Marco: Never a User Substance use?: No Alcohol Use?: No Pt feels they are or have been: No Immunizations Up To Date Tetanus Booster (TDap): Less Than 5 Years Current Status Advance Directives: No Communicates: Verbally Primary Language: Armenian Preferred Spoken Language: Armenian Is interpretation needed?: No Sensory deficits: Vision impairment, Hearing impairment Implanted or Applied Medical D: None Review of Systems Constitutional: weakness EENTM: no symptoms reported Respiratory: no symptoms reported Cardiovascular: no symptoms reported Gastrointestinal: no symptoms reported Genitourinary: frequency Musculoskeletal: muscle weakness Skin: other (jaundice) Psychiatric/Neurological: Weakness Physical Exam Physical Exam Vital Signs Vital Signs - First Documented 07/10/23 07/10/23 12:32 15:14 Temp 36.5 Pulse 70 Resp 15 B/P (MAP) 159/64 (95) Pulse Ox 97 O2 Delivery Room Air Capillary Refill : Less Than 3 Seconds Height, Weight, BMI Height: '" Weight: lbs. oz. kg; 21.00 BMI Method: General Appearance: No Apparent Distress Neck: Supple Respiratory: Lungs Clear, Normal Breath Sounds, No Accessory Muscle Use, No Respiratory Distress Cardiovascular: Regular Rate, Rhythm, No Edema Gastrointestinal: Non Tender, Soft Skin: Warm/Dry Results Results/Procedures Labs Laboratory Tests 07/10/23 12:53 Patient resulted labs reviewed. Assessment/Plan Admission Diagnosis UTI Admission Status: Inpatient Order (span 2 midnights) Reason for Inpatient Admission: UTI Diagnosis/Problems Diagnosis/Problems (1) UTI (urinary tract infection) Status: Acute Assessment & Plan: PLAN: UCx pending Ceftriaxone 1g IV q24hr (2) CHF (congestive heart failure) Status: Acute Assessment & Plan: PLAN: Cardiology consult Echo EKG Telemetry Resume DISPLAY ASSOCIATE coreg (3) Elevated brain natriuretic peptide (BNP) level Status: Acute Assessment & Plan: BNP 2193 PLAN: See CHF (4) Generalized weakness Status: Acute Assessment & Plan: PLAN: PT/OT IVF Encourage PO (5) CAD (coronary artery disease) Assessment & Plan: See CHF PLAN: Resume DISPLAY ASSOCIATE Eliquis (6) Recurrent falls Status: Acute Assessment & Plan: PLAN: See generalized weakness (7) Dehydration Status: Acute Assessment & Plan: PLAN: IVF Encourage PO (8) Hypothyroidism Status: Chronic Assessment & Plan: PLAN: Resume DISPLAY ASSOCIATE levothyroxine (9) Myelodysplastic syndrome Status: Chronic Assessment & Plan: PLAN: Resume DISPLAY ASSOCIATE BRIAN Nance DO 07/11/23 1342: History of Present Illness HPI/Chief Complaint CC: Weakness with falls HPI: This is am 88yoWM clinic patient of Dr Neumann who presents to the ER with weakness and falls. UTI dx so placed on abx and placed in ICU due to elevated troponin and overall clinical status instability. Source: family, RN/MD Exam Limitations: clinical condition Past Wfvqiui-Bmhslm-Vuivnb Hx Patient Social History Marrital Status: Employed/Student: retired Smoking Status: Unknown if Ever Smoked Past Medical History High Cholesterol, Hypertension Dementia Review of Systems ROS-Unable to Obtain: unobtainable due to weakness Constitutional: see HPI Physical Exam Physical Exam General Appearance: No Apparent Distress, Chronically ill Respiratory: Lungs Clear, Normal Breath Sounds Cardiovascular: Regular Rate, Rhythm Neurologic/Psychiatric: Disoriented Assessment/Plan Admission Diagnosis Weakness Falls Dementia AMS Plan: IV abx ICU Monitor closely I personally performed the orellana portions of the visit, discussed case with resident and concur with resident documentation of history, physical exam, assessment and treatment plan unless otherwise noted. Admission Status: Inpatient Order (span 2 midnights) Reason for Inpatient Admission: ams with uti and elevated trop CAITLYN TORREZ MD,RESIDENT Jul 10, 2023 14:56 BRIAN CALHOUN DO Jul 11, 2023 13:42
[2023-07-10] MEDS ORDERED: ACETAMINOPHEN 325 MG TABLET PO PRN (16:45)
[2023-07-10] MEDS ORDERED: ONDANSETRON INJECTION 4 MG/2 ML (SDV) IV PRN (16:45)
[2023-07-10] MEDS ORDERED: NS IV 500 ML 500 ML IV PRN (16:45)
[2023-07-10] MEDS ORDERED: ONDANSETRON 4 MG ORAL DISSOLVE TABLET PO PRN (16:45)
[2023-07-10] MEDS ORDERED: LIDOCAINE UROJET 2% GEL 10 ML PKG ONE (17:10)
--- NOTE | 2023-07-10 17:10 | Tele-ICU Consult ---
History of Present Illness History of Present Illness Date Seen by Provider: Jul 10, 2023 Time Seen by Provider: 17:01 Date of Admission eICU Critical Care Consult 88 yo M brought to ED with cc weakness, Hx of dementia, also myelodysplasia, CAD, has had stents 2007, On Eliquis Has been having falls, CT head neg on 07/07, lives at home U/A is showing WBC TNTC, also +2 blood in urine, Cr elevated at 1.45 started on IV Rocephin WBC 4.2 Allergies and Home Medications Allergies Coded Allergies: No Known Drug Allergies (Unverified , 11/15/22) Home Medications Cephalexin 500 Mg Capsule, 500 MG PO TID Prescribed by: JAVID PAT on 12/20/22 1634 Lidocaine 5 % Adh..patch, 1 EACH TP Q12H PRN for Lumbar pain/compression fx 2 patches max for 12 hours, then 12 hours patch-free period. Prescribed by: JAVID PAT on 12/20/22 1635 Past Medical/Social/Family Hx Patient Social History Tobacco Use?: No Smoking Status: Former Smoker Smokeless Tobacco Frequency: Never a User Use of E-Cig and/or Vaping dev: No E-Cig and/or Vaping Freq: Never a User Substance use?: No Alcohol Use?: No Pt stated abuse/neglect: No Immunizations Up To Date Influenza Vaccine Up-to-Date: No; Not Current Tetanus Booster (TDap): Unknown Hepatitis A: No Hepatitis B: No TB Skin Test: None Current Status Advance Directives: Yes Advance Directive Location: Home Communicates: Verbally Primary Language: Turkmen Preferred Spoken Language: Turkmen Is interpretation needed?: No Sensory deficits: Vision impairment, Hearing impairment Implanted or Applied Medical D: None Review of Systems Constitutional: see HPI EENTM: see HPI Respiratory: see HPI Cardiovascular: see HPI Gastrointestinal: see HPI Genitourinary: see HPI Musculoskeletal: see HPI Skin: see HPI Psychiatric/Neurological: See HPI Focused Exam Lactate Level 07/10/23 14:47: Lactic Acid Level 1.56 Height, Weight, BMI Height: '" Weight: lbs. oz. kg; 21.47 BMI Method: Lactic Acid Level Laboratory Tests Test 07/10/23 14:47 Lactic Acid Level 1.56 MMOL/L (0.50-2.00) Exam Exam Patient acknowledged, consented, and participated in this virtual visit which was conducted using real time audio/video Vital Signs Date Time Temp Pulse Resp B/P (MAP) Pulse Ox O2 Delivery O2 Flow Rate FiO2 07/10/23 16:22 73 07/10/23 16:07 36.2 64 20 132/89 (103) 97 Room Air 07/10/23 15:14 36.7 71 16 143/69 97 Room Air 07/10/23 12:32 36.5 70 15 159/64 (95) Room Air Height & Weight Height: '" Weight: lbs. oz. kg; 21.47 BMI Method: General Appearance: No Apparent Distress, WD/WN, Thin, Other (Dry mucous membranes and tenting of skin present) HEENT: PERRL/EOMI, Normal ENT Inspection Neck: Full Range of Motion, Normal Inspection Respiratory: Chest Non Tender, Lungs Clear, Normal Breath Sounds, No Accessory Muscle Use Cardiovascular: Regular Rate, Rhythm, No Edema Capillary Refill: Less Than 3 Seconds Gastrointestinal: normal bowel sounds, soft Extremity: No Pedal Edema Neurologic/Psychiatric: Alert, Other (Patient has dementia so difficult to do a ICE CREAM MAKER exam since patient is not really able to cooperate or participate actively in the exam) Skin: Pallor Results Lab Laboratory Tests 07/10/23 12:53 Assessment/Plan Assessment/Plan UTI, continue IV Rocephin Myelodysplasia, CAD with stents Falls dementia Pt is partial code, no intubation, family to bring in living wlll Critical Care: Critically Ill Patient Time spent with patient (mins): 25 JOSUE PEDROZA MD Jul 10, 2023 17:10
--- NOTE | 2023-07-10 18:34 | Tele-ICU Progress Note ---
Subjective Date Seen by a Provider: Jul 10, 2023 Time Seen by a Provider: 18:32 Subjective/Events-last exam called for increasing agitation, will give small dose of Xanax 0.25 Sepsis Event Evaluation Height, Weight, BMI Height: '" Weight: lbs. oz. kg; 21.47 BMI Method: Focused Exam Lactate Level 07/10/23 14:47: Lactic Acid Level 1.56 Lactic Acid Level Laboratory Tests Test 07/10/23 14:47 Lactic Acid Level 1.56 MMOL/L (0.50-2.00) Exam Exam Patient acknowledged, consented, and participated in this virtual visit which was conducted using real time audio/video Vital Signs Date Time Temp Pulse Resp B/P (MAP) Pulse Ox O2 Delivery O2 Flow Rate FiO2 07/10/23 18:00 84 19 170/110 (116) 99 Room Air 07/10/23 17:00 62 8 153/72 (103) 97 Room Air 07/10/23 16:22 73 07/10/23 16:07 36.2 64 20 132/89 (103) 97 Room Air 07/10/23 15:14 36.7 71 16 143/69 97 Room Air 07/10/23 12:32 36.5 70 15 159/64 (95) Room Air Height & Weight Height: '" Weight: lbs. oz. kg; 21.47 BMI Method: General Appearance: No Apparent Distress HEENT: PERRL/EOMI, Normal ENT Inspection Neck: Supple Respiratory: Lungs Clear, Normal Breath Sounds, No Accessory Muscle Use, No Respiratory Distress Cardiovascular: Regular Rate, Rhythm, No Edema Capillary Refill: Less Than 3 Seconds Gastrointestinal: normal bowel sounds, soft Extremity: No Pedal Edema Neurologic/Psychiatric: Alert, Other (Patient has dementia so difficult to do a HYDRAULIC ASSEMBLER exam since patient is not really able to cooperate or participate actively in the exam) Skin: Warm/Dry Results Lab Laboratory Tests 07/10/23 12:53 Assessment/Plan Assessment/Plan called for increasing agitation, will give small dose of Xanax 0.25 Critical Care: Critically Ill Patient Time spent with patient (mins): 10 JOSUE PEDROZA MD Jul 10, 2023 18:34
[2023-07-10] MEDS ORDERED: ALPRAZolam 0.25 MG TABLET PO ONE (18:45)
[2023-07-10] MEDS ORDERED: ALPRAZolam 0.25 MG TABLET ONE (19:17)
[2023-07-10] MEDS: APIXABAN 2.5 MG TABLET PO SCH (20:23)
[2023-07-10] MEDS ORDERED: LORazepam 0.5 MG TABLET PO PRN (23:15)
[2023-07-11 05:12] LABS: BASOPHILS % (AUTO) 1 % (0-10); EOSINOPHILS % (AUTO) 1 % (0-10); HEMATOCRIT 28 % (40-54); HEMOGLOBIN 9.3 g/dL (13.3-17.7); MEAN CORPUSCULAR HEMOGLOBIN 39 pg (25-34); MEAN CORPUSCULAR HGB CONC 33 g/dL (32-36); MEAN CORPUSCULAR VOLUME 118 fL (80-99); NEUTROPHILS # (AUTO) 0.8 10^3/uL (1.8-7.8)
[2023-07-11 05:14] LABS: LYMPHOCYTES # (AUTO) 1.9 10^3/uL (1.0-4.0); LYMPHOCYTES % (AUTO) 64 % (12-44); MEAN PLATELET VOLUME 10.4 fL (9.0-12.2); MONOCYTES # (AUTO) 0.2 10^3/uL (0.0-1.0); MONOCYTES % (AUTO) 7 % (0-12); NEUTROPHILS % (AUTO) 26 % (42-75); PLATELET COUNT 121 10^3/uL (130-400)
[2023-07-11 05:16] LABS: SMEAR SCAN COMMENT YES
[2023-07-11 05:29] LABS: ALBUMIN 2.9 GM/DL (3.2-4.5); POTASSIUM 3.2 MMOL/L (3.6-5.0)
[2023-07-11 05:31] LABS: CALCIUM 8.2 MG/DL (8.5-10.1)
[2023-07-11 05:32] LABS: TOTAL PROTEIN 5.6 GM/DL (6.4-8.2)
[2023-07-11 05:33] LABS: BILIRUBIN,TOTAL 2.5 MG/DL (0.1-1.0)
[2023-07-11 05:35] LABS: CREATININE SERUM 1.31 MG/DL (0.60-1.30); PHOSPHORUS 2.8 MG/DL (2.3-4.7)
[2023-07-11 05:38] LABS: MAGNESIUM 1.8 MG/DL (1.6-2.4)
[2023-07-11] MEDS: POTASSIUM CL 10MEQ/50ML IVPB 50 ML IV SCH ×5 (05:59→14:18)
[2023-07-11] MEDS: POTASSIUM CHLORIDE 20 MEQ TABLET PO SCH (05:59)
[2023-07-11] MEDS: MAGNESIUM 1 GM/100 ML IVPB 100 ML IV SCH ×3 (05:59→06:16)
[2023-07-11] MEDS: LEVOTHYROXINE 75 MCG TABLET PO SCH (06:15)
[2023-07-11] MEDS ORDERED: FLU HIGH DOSE (65+ YOA) 240 MCG/0.7 ML 2023-24 (FLUZONE) IM ONE (07:15)
[2023-07-11] MEDS: APIXABAN 2.5 MG TABLET PO SCH ×3 (07:58→20:38)
--- NOTE | 2023-07-11 09:12 | Tele-ICU Progress Note ---
Subjective Date Seen by a Provider: Jul 11, 2023 Time Seen by a Provider: 09:07 Subjective/Events-last exam Being treated with IV Rocephin for urosepsis, growing E Coli in urine, WBC 3-has myelodysplasia, BP 167/79, no resp distress with spont RR low 20's, SpO2 97% Pt is partial code, can do CPR but not intubated, to make decision Potassium is 3.2, will change oral to IV replacement, given 0.25 Xanax last night and still tired but can protect airway Sepsis Event Evaluation Height, Weight, BMI Height: '" Weight: lbs. oz. kg; 21.47 BMI Method: Focused Exam Lactate Level 07/10/23 14:47: Lactic Acid Level 1.56 Exam Exam Patient acknowledged, consented, and participated in this virtual visit which was conducted using real time audio/video Vital Signs Date Time Temp Pulse Resp B/P (MAP) Pulse Ox O2 Delivery O2 Flow Rate FiO2 07/11/23 08:00 97 Room Air 07/11/23 08:00 36.5 07/11/23 08:00 70 167/79 (120) 95 Room Air 07/11/23 07:00 64 07/11/23 07:00 65 26 156/93 (130) 98 Room Air 07/11/23 06:00 67 17 163/87 (112) 98 Room Air 07/11/23 05:00 71 18 153/76 (101) 99 Room Air 07/11/23 04:00 73 17 156/85 (108) 96 Room Air 07/11/23 03:19 97 Room Air 07/11/23 03:19 36.8 07/11/23 03:00 82 17 169/83 (111) 98 Room Air 07/11/23 02:00 72 17 172/90 (117) 98 Room Air 07/11/23 01:00 70 17 181/80 (113) 97 Room Air 07/11/23 01:00 73 07/11/23 00:00 97 Room Air 07/11/23 00:00 69 24 174/78 (110) 97 Room Air 07/10/23 23:00 79 24 174/77 (109) 98 Room Air 07/10/23 22:00 71 25 164/70 (101) 94 Room Air 07/10/23 21:00 72 24 160/82 (108) 96 Room Air 07/10/23 20:00 99 Room Air 07/10/23 20:00 71 19 172/72 (105) 96 Room Air 07/10/23 19:43 37.0 07/10/23 19:00 80 25 154/97 (116) 97 Room Air 07/10/23 19:00 80 07/10/23 18:00 84 19 170/110 (116) 99 Room Air 07/10/23 17:00 62 8 153/72 (103) 97 Room Air 07/10/23 16:22 73 07/10/23 16:07 36.2 64 20 132/89 (103) 97 Room Air 07/10/23 15:14 36.7 71 16 143/69 97 Room Air 07/10/23 12:32 36.5 70 15 159/64 (95) Room Air I & O 07/11/23 07:00 Intake Total 450 ml Output Total 650 ml Balance -200 ml Height & Weight Height: '" Weight: lbs. oz. kg; 21.47 BMI Method: General Appearance: No Apparent Distress HEENT: PERRL/EOMI, Normal ENT Inspection Neck: Supple Respiratory: Lungs Clear, Normal Breath Sounds, No Accessory Muscle Use, No Re spiratory Distress Cardiovascular: Regular Rate, Rhythm, No Edema Capillary Refill: Less Than 3 Seconds Gastrointestinal: normal bowel sounds, non tender, soft Extremity: No Pedal Edema Neurologic/Psychiatric: Alert, Other (Patient has dementia so difficult to do a AMMUNITION COMPONENTS INSPECTOR exam since patient is not really able to cooperate or participate actively in the exam) Skin: Warm/Dry Results Lab Laboratory Tests 07/10/23 12:53 07/11/23 04:53 Assessment/Plan Assessment/Plan Urosepsis E Coli, will continue IV Rocephin, Myelodysplasia-WBC low at 3 Potassium 3.2, was to get oral but not swallowing well, will change to IV T Bili elevated, if new would do u/s GB and liver, in past CT abd has shown distended GB but no stones Critical Care: Critically Ill Patient Time spent with patient (mins): 25 JOSUE PEDROZA MD Jul 11, 2023 09:12
[2023-07-11] MEDS: POTASSIUM CHLORIDE 8 MEQ TABLET PO SCH ×2 (09:58→11:36)
--- NOTE | 2023-07-11 11:00 | Progress Note ---
ROHINI MONROY MD, RESIDENT 07/11/23 1100: Subjective HPI/CC On Admission Date Seen by Provider: Jul 11, 2023 Time Seen by Provider: 10:20 CC: Generalized weakness, recurrent falls HPI: Pt is an 88yo male with a medical history significant for Alzheimer's dementia, CAD s/p CABGx2 2007, h/o CVA 2017, hypothyroidism, and myelodysplastic syndrome who presented to the ED for increased generalized weakness, recurrent falls, and dehydration. Per Pt's , over the last week or so, the Pt has been feeling progressively weaker with decreased PO, dehydrated, and he has had more falls than usual, one where he hit his head (07/07), CT NEG for acute process, which is out of the ordinary for him. In the ED, a UA demonstrated a UTI, associated with elevated WBCs. A pro-BNP was high elevated, CXR unremarkable for acute proces ses. The Pt was admitted to the ICU for further management. Subjective/Events-last exam Patient lethargic today but did receive a dose of Xanax at 730 last night and has never received medication before. Thus unable to obtain HPI at this time. Focused Exam Lactate Level 07/10/23 14:47: Lactic Acid Level 1.56 Objective Exam Vital Signs Vital Signs Date Time Temp Pulse Resp B/P (MAP) Pulse Ox O2 Delivery O2 Flow Rate FiO2 07/11/23 12:28 70 07/11/23 12:00 19 183/96 (129) 98 Room Air 07/11/23 08:00 36.5 Capillary Refill : Less Than 3 Seconds General Appearance: No Apparent Distress Respiratory: Chest Non Tender, Lungs Clear, Normal Breath Sounds, No Accessory Muscle Use, No Respiratory Distress Cardiovascular: Regular Rate, Rhythm, No Edema, No Gallop, No Murmur Gastrointestinal: Normal Bowel Sounds, Non Tender, Soft Extremity: Non Tender Neurologic/Psychiatric: Other (Lethargic and difficult to arouse) Results/Procedures Lab Laboratory Tests 07/11/23 04:53 Patient resulted labs reviewed. Assessment/Plan Assessment and Plan Assess & Plan/Chief Complaint UTI Diagnosis/Problems Diagnosis/Problems (1) UTI (urinary tract infection) Status: Acute Assessment & Plan: Patient being treated for UTI with ceftriaxone. WBC is tato ntrending however there was no evidence of leukocytosis previously. We will continue to monitor. (2) CHF (congestive heart failure) Status: Acute Assessment & Plan: Patient noted to have elevated proBNP. Follow-up echocardiogram Follow-up cardiology consult Resume home coreg (3) Elevated brain natriuretic peptide (BNP) level Status: Acute Assessment & Plan: Plan as per above. (4) Generalized weakness Status: Acute Assessment & Plan: Likely secondary to infection and dementia. Consulted PT/OT (5) CAD (coronary artery disease) Assessment & Plan: Continue PHYSICIAN PRESIDENT Eliquis (6) Hypothyroidism Status: Chronic Assessment & Plan: Continue home levothyroxine (7) Myelodysplastic syndrome Status: Chronic Assessment & Plan: Holding home medication in the setting of infection. Consider restarting in the next couple of days (8) Total bilirubin, elevated Status: Acute Assessment & Plan: Obtaining right upper quadrant ultrasound per tele-ICU BRIAN CALHOUN DO 07/11/23 1450: Subjective Subjective/Events-last exam Xanax given and has made him drowsy Sons at bedside takes care of him Objective Exam General Appearance: No Apparent Distress, WD/WN, Chronically ill Respiratory: Lungs Clear, Normal Breath Sounds Assessment/Plan Assessment and Plan Assess & Plan/Chief Complaint UTI treatment Monitor closely Cards consult ROHINI MONROY MD, RESIDENT Jul 11, 2023 11:00 BRIAN CALHOUN DO Jul 11, 2023 14:50
[2023-07-11] MEDS ORDERED: LEVO75CA5 PO (11:05)
[2023-07-11] MEDS ORDERED: CARV6.25 PO (11:05)
[2023-07-11] MEDS ORDERED: LENA5CAP PO (11:07)
[2023-07-11] MEDS ORDERED: TMSL.4C PO (11:09)
[2023-07-11] MEDS ORDERED: APIX2.5T PO (11:09)
[2023-07-11] MEDS ORDERED: LISI10TA25 PO (11:09)
--- NOTE | 2023-07-11 13:34 | Consultation-Cardiology ---
HPI-Cardiology Cardiology Consultation: Date of Consultation 07/11/23 Time Seen by a Provider: 13:15 Date of Admission Attending Physician Enoc Neumann MD Admitting Physician Admitting Physician: Katelin Willoughby DO Attending Physician: Katelin Willoughby DO Consulting Physician PRITI AMIN MD, MA, FACP, FACC, FSCAI, CCDS Physician requesting consult: Dr Willoughby HPI: Chief Complaint: Reason for Card consult: Elevated pro-BNP 88 yo man with dementia who had had a relatively low oral intake, increasing weakness, and increasing poor balance for several days prior to admission. Lives at home with who had noted decreasing responsiveness. Was brought to the ER and found to have UTI and dehydration, and was treated accordingly and has since had some improvement of mentation. We are asked to see him because pro-BNP was elevated at time of admission. His stated he had not had any chest discomfort or shortness of breath or swelling or palp or jorge syncope. Review of Systems-Cardiology Review of Systems Constitutional: other (ROS cannot be obtained from the patient directly. To the extent it could be obtained from his is described above under HPI) [id number] Hx Patient Social History Smoking Status: Former Smoker Alcohol Use?: No Pt feels they are or have been: No Past Medical History PMH As described under Assessment. Family Medical History Family Medical History: No fam h/o early CAD or SCD Allergies and Home Medications Allergies Coded Allergies: lactose (Verified Allergy, Intermediate, Diarrhea, 07/10/23) Patient Home Medication List Home Medication List Reviewed: Yes Apixaban (Eliquis) 2.5 Mg Tablet, 2.5 MG PO BID Prescribed by: JOSUE TELLO on 07/11/231108 Last Action: New Order Carvedilol (Coreg) 6.25 Mg Tablet, 6.25 MG PO BID Prescribed by: JOSUE TELLO on 07/11/23 110 Last Action: Continued Cephalexin (Cephalexin) 500 Mg Capsule, 500 MG PO TID Prescribed by: JAVID PAT on 12/20/22 1634 Lenalidomide (Lenalidomide) 5 Mg Capsule, 5 MG PO DAILY Prescribed by: JOSUE TELLO on 07/11/23 110 Last Action: New Order Levothyroxine Sodium (Levothyroxine) 75 Mcg Capsule, 75 MCG PO DAILY Prescribed by: JOSUE TELLO on 07/11/231104 Last Action: New Order Lidocaine (Lidocaine 5% Patch) 5 % Adh..patch, 1 EACH TP Q12H PRN for Lumbar pain/compression fx Prescribed by: JAVID PAT on 12/20/22 1635 Last Action: Held Lisinopril (Lisinopril) 10 Mg Tablet, 10 MG PO DAILY Prescribed by: JOSUE TELLO on 07/11/231108 Last Action: Continued Tamsulosin HCl (Flomax) 0.4 Mg Cap, 0.4 MG PO DAILY Prescribed by: JOSUE TELLO on 07/11/231108 Last Action: New Order Physical Exam-Cardiology Physical Exam Vital Signs/I&O 07/11/23 07/11/23 07/11/23 07/11/23 02:00 03:00 03:19 03:19 Temp 36.8 Pulse 72 82 Resp 17 17 B/P (MAP) 172/90 (117) 169/83 (111) Pulse Ox 98 98 97 O2 Delivery Room Air Room Air Room Air 07/11/23 07/11/23 07/11/23 07/11/23 04:00 05:00 06:00 07:00 Pulse 73 71 67 65 Resp 17 18 17 26 B/P (MAP) 156/85 (108) 153/76 (101) 163/87 (112) 156/93 (130) Pulse Ox 96 99 98 98 O2 Delivery Room Air Room Air Room Air Room Air 07/11/23 07/11/23 07/11/23 07/11/23 07:00 08:00 08:00 08:00 Temp 36.5 Pulse 64 70 B/P (MAP) 167/79 (120) Pulse Ox 95 97 O2 Delivery Room Air Room Air 07/11/23 07/11/23 07/11/23 07/11/23 09:00 10:00 11:00 12:00 Temp 36.4 Pulse 65 60 62 Resp 15 17 20 B/P (MAP) 157/79 (109) 175/84 (98) 166/80 (116) Pulse Ox 97 96 97 O2 Delivery Room Air Room Air Room Air 07/11/23 07/11/23 07/11/23 12:00 12:28 13:00 Pulse 68 70 74 Resp 19 22 B/P (MAP) 183/96 (129) 193/87 (114) Pulse Ox 98 99 O2 Delivery Room Air Room Air 07/11/23 00:00 Intake Total 450 ml Output Total 250 ml Balance 200 ml Capillary Refill : Less Than 3 Seconds Constitutional: No AAO x 3; well-developed, other (thin and weak appearance) HEENT: PERRL, other (he does not respond to questions, cannot assess hearing), EOMI; No xanthelasmas are seen Neck: carotid pulses are 2 + bilaterally, with good upstrokes Respiratory: No accessory muscle use; chest expansion is symmetric, chest is bilaterally symmetric; No other Cardiovascular: regular rate-rhythm, S1 and S2, systolic murmur (soft RENATO at card base) Gastrointestinal: No tender; soft; No guarding, No rebound; audible bowel sounds Extremities: No clubbing, No cyanosis, No significant edema Neurologic/Psychiatric: No oriented x 3; other (moves all limbs) Skin: normal color, warm/dry; No cyanosis, No cool, No diaphoresis; rash on exposed areas, ulcerations on exposed areas Data Review Labs Laboratory Tests 07/10/23 13:45: Influenza Type A (RT-PCR) Not Detected, Influenza Type B (RT-PCR) Not Detected, SARS-CoV-2 RNA (RT-PCR) Not Detected 07/10/23 14:47: Lactic Acid Level 1.56 07/10/23 17:00: Troponin I 0.098H 07/10/23 17:10: B-Type Natriuretic Peptide 2193.4H 07/11/23 04:53: White Blood Count 3.0L, Red Blood Count 2.37L, Hemoglobin 9.3L, Hematocrit 28L, Mean Corpuscular Volume 118H, Mean Corpuscular Hemoglobin 39H, Mean Corpuscular Hemoglobin Concent 33, Red Cell Distribution Width 15.9H, Platelet Count 121L, Mean Platelet Volume 10.4, Immature Granulocyte % (Auto) 1, Neutrophils (%) (Auto) 26L, Lymphocytes (%) (Auto) 64H, Monocytes (%) (Auto) 7, Eosinophils (%) (Auto) 1, Basophils (%) (Auto) 1, Neutrophils # (Auto) 0.8L, Lymphocytes # (Auto) 1.9, Monocytes # (Auto) 0.2, Eosinophils # (Auto) 0.0, Basophils # (Auto) 0.0, Immature Granulocyte # (Auto) 0.0, Percent Immature Platelet Fraction 3.7, Sodium Level 139, Potassium Level 3.2L, Chloride Level 106, Carbon Dioxide Level 22, Anion Gap 11, Blood Urea Nitrogen 24H, Creatinine 1.31H, Estimat Glomerular Filtration Rate 52, BUN/Creatinine Ratio 18, Glucose Level 97, Calcium Level 8.2L, Corrected Calcium 9.1, Phosphorus Level 2.8, Magnesium Level 1.8, Total Bilirubin 2.5H, Aspartate Amino Transf (AST/SGOT) 16, Alanine Aminotransferase (ALT/SGPT) 12, Alkaline Phosphatase 89, Total Protein 5.6L, Albumin 2.9L, Smear Scan YES Microbiology 07/10/23 Urine Culture - Preliminary, Resulted Escherichia coli Laboratory Tests 07/10/23 12:53 07/11/23 04:53 A/P-Cardiology Assessment/Admission Diagnosis UTI Dehydration (acute renal insuff) Myelodysplastic syndrome - on chronic apixaban therapy that was initiated by and is maintained by his ski patrol officer after pt had had TIAs Elevated pro-BNP likely primarily due to diminished renal clearance (acute renal insuff) CAD - s/p CABG x 2 at [place], [place] in 2007 - followed by Dr Lima ([facility]) NSR on tele (pt's does not report any history of A Fib) - ECG on 07-11-23 (11:33 am): NSR, rare PAC, LAFB, incomp RBBB Dementia Gen weakness and chronic poor balance Discussion and Recomendations * I discussed his CV issues with his * Echo to eval for any cardiac causes of elevated pro-BNP * Monitor labs PRITI AMIN MD [facility] CCDS Jul 11, 2023 13:34
[2023-07-11] MEDS: carvediloL 6.25 MG TABLET PO SCH ×2 (14:20→20:38)
[2023-07-11] MEDS: cefTRIAXone IV/IM 1,000 MG in NS (IVPB) 50 ML 50 ML IV SCH (15:17)
[2023-07-11] MEDS ORDERED: carvediloL 6.25 MG TABLET PO SCH (21:00)
[2023-07-12 05:17] LABS: BASOPHILS # (AUTO) 0.1 10^3/uL (0.0-0.1); BASOPHILS % (AUTO) 1 % (0-10); EOSINOPHILS % (AUTO) 0 % (0-10); HEMATOCRIT 30 % (40-54); HEMOGLOBIN 10.2 g/dL (13.3-17.7); LYMPHOCYTES # (AUTO) 3.6 10^3/uL (1.0-4.0); LYMPHOCYTES % (AUTO) 77 % (12-44); MEAN CORPUSCULAR HEMOGLOBIN 40 pg (25-34); MEAN CORPUSCULAR HGB CONC 34 g/dL (32-36); MEAN CORPUSCULAR VOLUME 118 fL (80-99); MEAN PLATELET VOLUME 10.1 fL (9.0-12.2); MONOCYTES # (AUTO) 0.3 10^3/uL (0.0-1.0); MONOCYTES % (AUTO) 7 % (0-12); NEUTROPHILS # (AUTO) 0.6 10^3/uL (1.8-7.8); NEUTROPHILS % (AUTO) 14 % (42-75); PLATELET COUNT 142 10^3/uL (130-400); WHITE BLOOD COUNT 4.7 10^3/uL (4.3-11.0)
[2023-07-12 05:31] LABS: POTASSIUM 3.9 MMOL/L (3.6-5.0)
[2023-07-12 05:32] LABS: CALCIUM 8.3 MG/DL (8.5-10.1)
[2023-07-12 05:33] LABS: TOTAL PROTEIN 6.2 GM/DL (6.4-8.2)
[2023-07-12 05:35] LABS: BILIRUBIN,TOTAL 1.5 MG/DL (0.1-1.0)
[2023-07-12 05:37] LABS: CREATININE SERUM 1.31 MG/DL (0.60-1.30); PHOSPHORUS 2.4 MG/DL (2.3-4.7)
[2023-07-12] MEDS: POTASSIUM CHLORIDE 20 MEQ TABLET PO SCH (05:39)
[2023-07-12 05:40] LABS: MAGNESIUM 2.3 MG/DL (1.6-2.4)
[2023-07-12] MEDS: POTASSIUM CL 10MEQ/50ML IVPB 50 ML IV SCH ×3 (05:40→07:03)
[2023-07-12] MEDS: MAGNESIUM 1 GM/100 ML IVPB 100 ML IV SCH (05:43)
[2023-07-12 06:19] LABS: LYMPHOCYTES % (MANUAL) 84 %; MONOCYTES % (MANUAL) 5 %; NEUTROPHILS % (MANUAL) 11 %
[2023-07-12] MEDS: LEVOTHYROXINE 75 MCG TABLET PO SCH ×2 (06:33→10:28)
--- NOTE | 2023-07-12 07:59 | Diagnostic Imaging Report ---
PROCEDURE: US Gallbladder. TECHNIQUE: Multiple real-time grayscale images were obtained over the right upper quadrant in various projections. INDICATION: Hyperbilirubinemia Liver measures 14 cm in length without evidence of focal lesion. Stones are present in the gallbladder lumen without gallbladder wall thickening or pericholecystic fluid. There is no evidence of biliary ductal dilatation. Pancreas, aorta and inferior vena cava are obscured by overlying bowel. Right kidney does contain approximately 3.5 cm cyst. No free abdominal fluid is seen. There is right pleural fluid. IMPRESSION: Cholelithiasis without secondary sign of acute cholecystitis or biliary tract obstruction. Note is made of right pleural fluid and clinical correlation would be of use. Dictated by: Dictated on workstation # [id number]
--- NOTE | 2023-07-12 08:50 | Progress Note ---
CAITLYN TORREZ MD,RESIDENT 07/12/23 0850: Subjective HPI/CC On Admission CC: Weakness with falls HPI: This is am 88yoWM clinic patient of Dr Neumann who presents to the ER with weakness and falls. UTI dx so placed on abx and placed in ICU due to elevated troponin and overall clinical status instability. Subjective/Events-last exam No acute events overnight. Pt resting in bed this morning, slightly more drowsy than previous exam. To note Pt had just finished a session with PT prior. Focused Exam Lactate Level 07/10/23 14:47: Lactic Acid Level 1.56 Objective Exam Vital Signs Vital Signs Date Time Temp Pulse Resp B/P (MAP) Pulse Ox O2 Delivery O2 Flow Rate FiO2 07/12/23 13:00 66 134/75 (94) 96 Room Air 07/12/23 12:36 36.1 16 Capillary Refill : Less Than 3 Seconds General Appearance: No Apparent Distress Neck: Non Tender, Supple Respiratory: Chest Non Tender, Lungs Clear, Normal Breath Sounds, No Accessory Muscle Use, No Respiratory Distress Cardiovascular: Regular Rate, Rhythm Gastrointestinal: Non Tender, Soft Neurologic/Psychiatric: Normal Mood/Affect, Other (Pt at his baseline cognition) Skin: Warm/Dry Results/Procedures Lab Laboratory Tests 07/12/23 04:50 Patient resulted labs reviewed. Assessment/Plan Assessment and Plan Assess & Plan/Chief Complaint Generalized weakness, decreased balance UTI Diagnosis/Problems Diagnosis/Problems (1) UTI (urinary tract infection) Status: Acute Assessment & Plan: PLAN: UCx: E. coli Continue Ceftriaxone 1g IV q24hr (2) CHF (congestive heart failure) Status: Acute Assessment & Plan: PLAN: Cardiology consult Echo EKG Telemetry Resume SENIOR SVP coreg (3) Elevated brain natriuretic peptide (BNP) level Status: Acute Assessment & Plan: BNP 2193 PLAN: See CHF (4) Generalized weakness Status: Acute Assessment & Plan: PLAN: PT/OT IVF Encourage PO (5) CAD (coronary artery disease) Assessment & Plan: See CHF PLAN: Resume SENIOR SVP Eliquis (6) Recurrent falls Status: Acute Assessment & Plan: PLAN: See generalized weakness (7) Dehydration Status: Acute Assessment & Plan: PLAN: IVF Encourage PO (8) Hypothyroidism Status: Chronic Assessment & Plan: PLAN: Resume SENIOR SVP levothyroxine (9) Myelodysplastic syndrome Status: Chronic Assessment & Plan: PLAN: Resume SENIOR SVP Revlimid KATINA ORONA MD 07/12/232138: Supervisory-Addendum Brief Supervisory Addendum I personally performed the orellana portions of the visit, discussed case with resident and concur with resident documentation of history, physical exam, assessment and treatment plan unless otherwise noted. At time of my exam, patient able to awake and state name, when asked location he stated he knew it, but then could not give any suggested names of locations. Will hold benzo as he received small dose last night and was excessively drowsy this morning. CAITLYN TORREZ MD,RESIDENT Jul 12, 2023 08:50 KATINA ORONA MD Jul 12, 2023 21:39
--- NOTE | 2023-07-12 09:02 | Tele-ICU Progress Note ---
Subjective Date Seen by a Provider: Jul 12, 2023 Time Seen by a Provider: 11:40 Subjective/Events-last exam (Tele-ICU Physician , Progress Note ) Service provided via interactive audio and video telecommunications E-CARE s te to a patient admitted to ICU bed in [facility]. Patient is seen today due to persistent need of ICU care Available chart/ vitals / labs / Images reviewed Video assessment done using teleICU camera, rest of exam as per RN He is a 88-year-old male with past medical history significant for severe Alzheimer's dementia, coronary artery disease status post bypass surgery, hypothyroidism and myelodysplastic syndrome and previous history of TIAs for which she has been on fracture about 1 admitted via emergency room because of severe weakness and hematuria. His urine analysis suggestive of urinary tract infection. Also his BNP is elevated however chest x-ray is unremarkable. He is admitted to the intensive care unit for close monitoring and management Impression 1. Urinary tract infection with possible sepsis 2. Acute kidney injury secondary to dehydration and sepsis 3. Chronic cholecystitis 4. Severe Alzheimer's dementia. Recommendations 1. Hydrate patient aggressively 2. IV antibiotics broad-spectrum 3. Correct electrolyte abnormalities 4. Cardiology service following the patient 5. History of L2 compression fracture. Coordination of care with primary care physician and bedside solutions market consultant I am remotely monitoring this patient from Tele icu station in [place]. I am unable to do the bedside exam, and history/physical and pertinent information is taken from other notes in the computer and bedside staff. Case reviewed with bedside ICU ICU nurse and in MDR Certain portions of this document may have been dictated utilizing voice mikel gnition technology such as [employer]. Inherent to this technology, typographical and grammatical errors may exist. As much as I am diligent to identify and correct to these mistakes, some errors may remain in the document. Critical care time devoted to this patient today is approximately is-25 minut es.- Sepsis Event Evaluation Height, Weight, BMI Height: '" Weight: lbs. oz. kg; 21.47 BMI Method: Focused Exam Lactate Level 07/10/23 14:47: Lactic Acid Level 1.56 Exam Exam Patient acknowledged, consented, and participated in this virtual visit which was conducted using real time audio/video Vital Signs Date Time Temp Pulse Resp B/P (MAP) Pulse Ox O2 Delivery O2 Flow Rate FiO2 07/12/23 08:00 76 18 154/71 (98) 96 Room Air 07/12/23 07:40 36.7 07/12/23 07:00 92 07/12/23 07:00 92 18 183/121 (141) 91 Room Air 07/12/23 06:00 69 18 184/88 (120) 97 Room Air 07/12/23 05:15 190/97 (118) 07/12/23 05:00 77 13 180/107 (133) 95 Room Air 07/12/23 04:45 73 12 178/89 (133) 89 Room Air 07/12/23 04:30 165/110 (130) 07/12/23 04:15 66 28 170/85 (120) 97 Room Air 07/12/23 04:00 36.5 66 25 171/87 (98) 95 Room Air 07/12/23 04:00 95 Room Air 07/12/23 03:45 62 19 155/75 (105) Room Air 07/12/23 03:30 66 29 172/91 (94) 96 Room Air 07/12/23 03:15 174/85 (112) 07/12/23 03:00 68 23 154/79 (115) 98 Room Air 07/12/23 02:30 71 14 162/98 (124) 98 07/12/23 02:15 72 186/92 (115) 07/12/23 02:00 72 166/98 (112) 95 Room Air 07/12/23 01:45 180/89 (104) Room Air 07/12/23 01:30 175/99 (131) Room Air 07/12/23 01:15 65 162/80 (104) 92 Room Air 07/12/23 01:00 63 148/71 (101) Room Air 07/12/23 01:00 70 07/12/23 00:45 163/82 (115) Room Air 07/12/23 00:30 67 166/87 (102) 95 Room Air 07/12/23 00:15 78 176/99 (126) 97 Room Air 07/12/23 00:00 71 164/86 (112) 98 Room Air 07/11/23 23:59 96 Room Air 07/11/23 23:45 71 26 153/80 (107) 98 Room Air 07/11/23 23:30 75 18 170/100 (149) 94 Room Air 07/11/23 23:15 75 8 184/94 (125) 95 Room Air 07/11/23 23:00 70 25 169/85 (101) 92 Room Air 07/11/23 22:45 73 24 160/83 (114) Room Air 07/11/23 22:30 76 24 170/91 (110) 92 Room Air 07/11/23 22:24 97 Room Air 07/11/23 22:00 84 8 172/107 (131) 94 Room Air 07/11/23 21:45 81 24 179/107 (150) 95 Room Air 07/11/23 21:30 86 12 198/106 (137) 88 Room Air 07/11/23 21:15 80 23 187/102 (115) 99 Room Air 07/11/23 21:00 73 30 176/110 (132) 91 Room Air 07/11/23 20:45 75 12 178/99 (115) 90 Room Air 07/11/23 20:30 78 21 186/104 (120) 96 Room Air 07/11/23 20:15 78 9 182/101 (130) 94 Room Air 07/11/23 20:00 97 Room Air 07/11/23 20:00 79 27 183/105 (112) 100 Room Air 07/11/23 19:45 75 15 166/128 (139) 96 Room Air 07/11/23 19:30 74 8 153/98 (116) 96 Room Air 07/11/23 19:15 68 25 168/74 (100) 94 Room Air 07/11/23 19:00 67 10 164/86 (115) 98 Room Air 07/11/23 19:00 70 07/11/23 18:00 72 26 187/96 (112) 96 Room Air 07/11/23 17:00 63 29 170/79 (93) 100 Room Air 07/11/23 16:20 98 Room Air 07/11/23 16:00 63 19 159/85 (110) 98 Room Air 07/11/23 15:00 71 20 174/87 (118) 97 Room Air 07/11/23 14:00 69 13 173/109 (131) 96 Room Air 07/11/23 13:00 74 22 193/87 (114) 99 Room Air 07/11/23 12:28 70 07/11/23 12:00 68 19 183/96 (129) 98 Room Air 07/11/23 12:00 97 Room Air 07/11/23 12:00 36.4 07/11/23 11:00 62 20 166/80 (116) 97 Room Air 07/11/23 10:00 60 17 175/84 (98) 96 Room Air I & O 07/12/23 07:00 Intake Total 1300 ml Output Total 1150 ml Balance 150 ml Height & Weight Height: '" Weight: lbs. oz. kg; 21.47 BMI Method: General Appearance: No Apparent Distress, WD/WN, Chronically ill HEENT: PERRL/EOMI, Normal ENT Inspection Neck: Supple Respiratory: Lungs Clear, Normal Breath Sounds Cardiovascular: Regular Rate, Rhythm Capillary Refill: Less Than 3 Seconds Gastrointestinal: normal bowel sounds, non tender, soft Extremity: Non Tender Neurologic/Psychiatric: Disoriented Skin: Warm/Dry Results Lab Laboratory Tests 07/10/23 12:53 07/11/23 04:53 07/12/23 04:50 Assessment/Plan Assessment/Plan as above Critical Care: Critically Ill Patient Time spent with patient (mins): 25 CRISTOFER GONZALEZ MD Jul 12, 2023 09:02
--- NOTE | 2023-07-12 10:09 | Physical Therapy Evaluation ---
PT Evaluation-General Medical Diagnosis Admission Date Jul 10, 2023 at 16:02 Medical Diagnosis: acute cystitis with hemitura Onset Date: Jul 10, 2023 Therapy Diagnosis Therapy Diagnosis: severe weakness/impaired mobility Precautions Precautions/Isolations: Fall Prevention, Standard Precautions Weight Bear Status Right Lower Extremity: Right Full Weight Bearing Left Lower Extremity: Left Full Weight Bearing Referral Physician: Erik Reason for Referral: Evaluation/Treatment Medical History Pertinent Medical History: CABG, CAD, Dementia Current History EMS secondary to weakness and falls Reviewed History: Yes Prior Prior Level of Function SCALE: Activities may be completed with or without assistive devices. 9-Onhdfnmnmt-azdtsex completes the activity by him/herself with no assistance from a helper. 5-Set-up or Clean-up Assistance-helper sets up or cleans up; patient completes activity. Liberty assists only prior to or following the activity. 4-Supervision or Touching Assistance-helper provides verbal cues and/or touching/steadying and/or contact guard assistance as patient completes activity. Assistance may be provided throughout the activity or intermittently. 3-Partial/Moderate Assistance-helper does LESS THAN HALF the effort. Liberty lifts, holds or supports trunk or limbs, but provides less than half the effort. 2-Substantial/Maximal Assistance-helper does MORE THAN HALF the effort. Liberty lifts or holds trunk or limbs and provides more than half the effort. 6-Pxalwlrsh-fgspiv does ALL the effort. Patient does none of the effort to complete the activity. Or, the assistance of 2 or more helpers is required for the patient to complete the activity. If activity was not attempted, code reason: 7-Patient Refused. 9-Not Applicable-not attempted and the patient did not perform the activity before the current illness, exacerbation or injury. 10-Not Attempted due to Environmental Limitations-(lack of equipment, weather restraints, etc.). 88-Not Attempted due to Medical Conditions or Safety Concerns. unable to determine/no family present PT Evaluation-Current Objective Patient Orientation: Confused ROM/Strength ROM Lower Extremities bilateral LE WFL Strength Lower Extremities unable to test due to dementia Integumentary/Posture Bladder Incontinence: Henao Cath Posture kyphotic Neuromuscular (Tone, Coordination, Reflexes) severely diminished with all Sensory Vision: Unable to Assess Hearing: Functional Transfers Roll Left to Right (QC): 1 (x 2) Sit to Lying (QC): 1 (x 2) Lying to Sitting/Side of Bed(Q: 1 (x 2) Sit to Stand (QC): 1 (x 2) patient sat EOB for several minutes with dependent assist, kyphotic posture and poor balance Gait Does the Patient Walk?: No and Walking Goal IS indicated Balance Sitting Static: Poor Sitting Dynamic: Poor Standing Static: Poor Assessment/Needs Patient will benefit from skilled PT to address functional strength and mobility to improve current LOF. Patient is currently dependent of 2 with all mobility. Unable to determine PLOF due to no family present. Rehab Potential: Poor PT Assisted Goals Lead Retail Sales Associate Goals PT Lead Retail Sales Associate Goals Time Frame: Jul 31, 2023 Roll Left & Right (QC): 3 Sit to Lying (QC): 3 Lying-Sitting on Side/Bed(QC): 3 Sit to Stand (QC): 3 Chair/Keg-kg-Obktc Xfer(QC): 3 Walk 10 feet (QC): 3 PT Plan Problem List Problem List: Activity Tolerance, Functional Strength, Safety, Balance, Gait, Transfer, Bed Mobility Treatment/Plan Treatment Plan: Continue Plan of Care Treatment Plan: Bed Mobility, Education, Functional Activity Jonathon, Functional Strength, Gait, Safety, Therapeutic Exercise, Transfers Treatment Duration: Jul 31, 2023 Frequency: 5 times per week Estimated Hrs Per Day: .25 hour per day Time Time In: 815 Time Out: 829 DATE: Jul 12, 2023 Total Billed Treatment Time: 14 Total Billed Treatment 1 visit [facility] 14 min JOSE PATRICK PT Jul 12, 2023 10:09
--- NOTE | 2023-07-12 10:10 | Occupational Therapy Eval ---
OT Evaluation-General/PLF Medical Diagnosis Admission Date Jul 10, 2023 at 16:02 Medical Diagnosis: cute cystitis with hemitura Onset Date: Jul 10, 2023 Therapy Diagnosis Therapy Diagnosis: weakness, confusion Precautions Precautions/Isolations: Fall Prevention, Standard Precautions Safety Interventions: Bed Exit Alarm Referral Referral Reason: Activity Tolerance, Self Care, Evaluation/Treatment Medical History Pertinent Medical History: Dementia Reviewed History: Yes Social History Home: Current Living Status: Spouse Patient is unable to provided PLOF or living situation. ADL-Prior Level of Function SCALE: Activities may be completed with or without assistive devices. 5-Yervilfczl-mqhxqat completes the activity by him/herself with no assistance from a helper. 5-Set-up or Clean-up Assistance-helper sets up or cleans up; patient completes activity. Elbert assists only prior to or following the activity. 4-Supervision or Touching Assistance-helper provides verbal cues and/or touching/steadying and/or contact guard assistance as patient completes activi ty. Assistance may be provided throughout the activity or intermittently. 3-Partial/Moderate Assistance-helper does LESS THAN HALF the effort. Elbert lifts, holds or supports trunk or limbs, but provides less than half the effort. 2-Substantial/Maximal Assistance-helper does MORE THAN HALF the effort. Elbert lifts or holds trunk or limbs and provides more than half the effort. 9-Scrrqyzol-korjbn does ALL the effort. Patient does none of the effort to complete the activity. Or, the assistance of 2 or more helpers is required for the patient to complete the activity. If activity was not attempted, code reason: 7-Patient Refused. 9-Not Applicable-not attempted and the patient did not perform the activity before the current illness, exacerbation or injury. 10-Not Attempted due to Environmental Limitations-(lack of equipment, weather restraints, etc.). 88-Not Attempted due to Medical Conditions or Safety Concerns. ADL PLOF Comments UNKNOWN PLOF Self Care: Unknown Functional Cognition: Unknown OT Current Status Subjective Moderately difficult to arouse and attend to direction and commands Pain Location: No Pain Reported Mental Status/Objective Patient Orientation: Confused, Eyes Open (intermittently ), Mumbles Attachments: Henao Catheter, Telemetry (not connected) Current Upper Extremity ROM PROM performed as patient did not follow instruction for ROM or strengthening testing Upper Extremity Coordination impaired Upper Extremity Sensation responds to tape being pulled off arm Upper Extremity Strength NT poor statc sitting balance, intermittent brief periods of unsupported sitting on EOB ADL-Treatment ADL-Current Dependent for all ADLS, required 2 person sit/ stand Eating (QC): 3 Oral Hygiene (QC): 2 Shower/Bathe Self (QC): 88 Upper Body Dressing (QC): 1 Lower Body Dressing (QC): 1 On/Off Footwear (QC): 1 Toileting Hygiene (QC): 1 Education OT Patient Education: Correct positioning, Modified ADL techniques, Progress toward Goal/Update tx plan, Purpose of tx/functional activities, Reviewed precautions, Rehab process, Safety issues, Transfer techniques, Use of adapted equipment Teaching Recipient: Patient Response to Teaching: Unable to Comprehend OT Laborer Hide House Goals Laborer Hide House Goals Eating (QC): 4 Oral Hygiene (QC): 4 Toileting Hygiene (QC): 3 Shower/Bathe Self (QC): 3 Upper Body Dressing (QC): 4 Lower Body Dressing (QC): 3 On/Off Footwear (QC): 3 1=Demonstrate adherence to instructed precautions during ADL tasks. 2=Patient will verbalize/demonstrate understanding of assistive devices/modifications for ADL. 3=Patient will improve strength/tolerance for activity to enable patient to perform ADL's. OT Education/Plan Problem List/Assessment Assessment: Decreased Activ Tolerance, Decreased Safety Aware, Decreased UE Strength, Dependent Transfers, Impaired Bed Mobility, Impaired Cognition, Impaired Coordination, Impaired Funct Balance, Impaired Self-Care Skills Discharge Recommendations Plan/Recommendations: Continue POC Therapy Discharge Recommendati: Post Acute OT Treatment Plan/Plan of Care Treatment,Training & Education: Yes Patient would benefit from OT for education, treatment and training to promote independence in ADL's, mobility, safety and/or upper extremity function for ADL's. Plan of Care: ADL Retraining, Cognitive Retraining, Concurrent Therapy, Functional Mobility, Group Exercise/Act as Ind, UE Funct Exercise/Act Treatment Duration: Jul 16, 2023 Frequency: 3 times per week (3-5 times per week) Estimated Hrs Per Day: .25 hour per day Agreement: Yes Rehab Potential: Poor Time Start Time: 08:18 Stop Time: 08:29 DATE: Jul 12, 2023 Total Time Billed (hr/min): 11 Billed Treatment Time EVM 11 min THAD CORNELIUS OT Jul 12, 2023 10:10
[2023-07-12] MEDS: APIXABAN 2.5 MG TABLET PO SCH ×2 (10:27→20:42)
[2023-07-12] MEDS: carvediloL 6.25 MG TABLET PO SCH ×2 (10:27→20:42)
--- NOTE | 2023-07-12 10:42 | Progress Note - Cardiology ---
Cardiology SOAP Progress Note Subjective: Sitting up in bed No c/o CP or SOB Objective: I&O/Vital Signs 07/12/23 07/12/23 07/13/23 07/13/23 20:45 23:35 01:00 03:22 Temp 36.4 36.8 Pulse 63 65 74 Resp 18 18 B/P (MAP) 163/72 (102) 187/88 (121) Pulse Ox 97 97 O2 Delivery Room Air Room Air Room Air 07/13/23 07:26 Temp 36.2 Pulse 68 Resp 16 B/P (MAP) 135/63 (87) Pulse Ox 98 O2 Delivery Room Air 07/12/23 23:59 Intake Total 820 ml Output Total 450 ml Balance 370 ml Constitutional: No AAO x 3; well-developed, other (thin and weak appearance) Respiratory: No accessory muscle use; chest expansion is symmetric, chest is bilaterally symmetric; No other Cardiovascular: regular rate-rhythm, S1 and S2, systolic murmur (soft RENATO at card base) Gastrointestional: No tender; soft; No guarding, No rebound; audible bowel sounds Extremities: No clubbing, No cyanosis, No significant edema Neurologic/Psychiatric: No oriented x 3; other (moves all limbs) Skin: normal color, warm/dry; No cyanosis, No cool, No diaphoresis; rash on exposed areas, ulcerations on exposed areas Results/Procedures: Labs Laboratory Tests 07/13/23 05:03: White Blood Count 3.3L, Red Blood Count 2.63L, Hemoglobin 10.2L, Hematocrit 31L, Mean Corpuscular Volume 116H, Mean Corpuscular Hemoglobin 39H, Mean Corpuscular Hemoglobin Concent 33, Red Cell Distribution Width 15.8H, Platelet Count 139, Mean Platelet Volume 10.2, Immature Granulocyte % (Auto) 0, Neutrophils (%) (Auto) 17L, Lymphocytes (%) (Auto) 69H, Monocytes (%) (Auto) 11, Eosinophils (%) (Auto) 0, Basophils (%) (Auto) 2, Neutrophils # (Auto) 0.6L, Lymphocytes # (Auto) 2.3, Monocytes # (Auto) 0.4, Eosinophils # (Auto) 0.0, Basophils # (Auto) 0.1, Immature Granulocyte # (Auto) 0.0, Percent Immature Platelet Fraction 3.6, Sodium Level 137, Potassium Level 3.4L, Chloride Level 106, Carbon Dioxide Level 21, Anion Gap 10, Blood Urea Nitrogen 22H, Creatinine 1.24, Estimat Glomerular Filtration Rate 56, BUN/Creatinine Ratio 18, Glucose Level 112H, Calcium Level 8.1L, Corrected Calcium 9.0, Phosphorus Level 2.5, Magnesium Level 2.0, Total Bilirubin 1.1H, Aspartate Amino Transf (AST/SGOT) 13, Alanine Aminotransferase (ALT/SGPT) 12, Alkaline Phosphatase 86, Total Protein 5.8L, Albumin 2.9L Microbiology 07/10/23 MRSA Screen - Final, Complete MRSA not isolated 07/10/23 Blood Culture - Preliminary, Resulted 07/10/23 Urine Culture - Final, Complete Escherichia coli Procedures NAME: [facility] REC#: [id number] PT STATUS: ADM IN : 1935 PHYSICIAN: JOSUE PEDROZA MD ADMIT DATE: 07/10/23/ICU Signed Date of Exam:07/12/23 US GALLBLADDER [id number] PROCEDURE: US Gallbladder. TECHNIQUE: Multiple real-time grayscale images were obtained over the right upper quadrant in various projections. INDICATION: Hyperbilirubinemia Liver measures 14 cm in length without evidence of focal lesion. Stones are present in the gallbladder lumen without gallbladder wall thickening or pericholecystic fluid. There is no evidence of biliary ductal dilatation. Pancreas, aorta and inferior vena cava are obscured by overlying bowel. Right kidney does contain approximately 3.5 cm cyst. No free abdominal fluid is seen. There is right pleural fluid. IMPRESSION: Cholelithiasis without secondary sign of acute cholecystitis or biliary tract obstruction. Note is made of right pleural fluid and clinical correlation would be of use. Dictated by: Dictated on workstation # [id number] Dict: 07/12/23 [id number] Trans: 07/12/23847 CV [id number] Interpreted by: SHANNON RODRIGUEZ MD Electronically signed by: SHANNON RODRIGUEZ MD 07/12/23847 A/P: Assessment: UTI - management per medical services Dehydration (acute renal insuff) Myelodysplastic syndrome - on chronic apixaban therapy that was initiated by and is maintained by his paster operator after pt had had TIAs Elevated pro-BNP likely primarily due to diminished renal clearance (acute renal insuff) CAD - s/p CABG x 2 at [place], [place] in 2007 - followed by Dr Lima (childcare worker at [facility]) - Echocardiogram of 07-11-23 showed LVEF 45-50%, Mild to mod MR. Mild AoR. PASP 25-30 mmHg NSR on tele (pt's does not report any history of A Fib) - ECG on 07-11-23 (11:33 am): NSR, rare PAC, LAFB, incomp RBBB Dementia Gen weakness and chronic poor balance Plan: * BP not well controlled - restart home dose of Coreg and JO (-) * Monitor labs MICHELLE LOPEZ Jul 12, 2023 10:41
[2023-07-12] MEDS ORDERED: CARV6.252 PO (12:27)
[2023-07-12] MEDS ORDERED: RISP0.5T65 PO (12:27)
[2023-07-12] MEDS ORDERED: APIX5TAB PO (12:27)
[2023-07-12] MEDS ORDERED: LEVO75TA6 PO (12:27)
[2023-07-12] MEDS ORDERED: LISI10TA25 PO (12:27)
[2023-07-12] MEDS ORDERED: LENA5CAP PO (12:27)
[2023-07-12] MEDS ORDERED: SMARTER GREENS PO (12:27)
[2023-07-12] MEDS ORDERED: TMSL.4C PO (12:27)
[2023-07-12] MEDS ORDERED: INUL2TAB PO (12:27)
[2023-07-12] MEDS: cefTRIAXone IV/IM 1,000 MG in NS (IVPB) 50 ML 50 ML IV SCH (12:39)
--- NOTE | 2023-07-12 18:17 | Progress Note - Cardiology ---
Cardiology SOAP Progress Note Subjective: Confused at time of my exam Not able to answer questions meaningfully Objective: I&O/Vital Signs 07/12/23 07/12/23 07/12/23 07/12/23 07:00 07:00 07:40 08:00 Temp 36.7 Pulse 92 92 76 Resp 18 18 B/P (MAP) 183/121 (141) 154/71 (98) Pulse Ox 91 96 O2 Delivery Room Air Room Air 07/12/23 07/12/23 07/12/23 07/12/23 08:00 09:00 10:00 11:00 Pulse 70 70 67 B/P (MAP) 170/82 (111) 160/87 (111) 153/80 (104) Pulse Ox 97 97 98 93 O2 Delivery Room Air Room Air Room Air Room Air 07/12/23 07/12/23 07/12/23 07/12/23 11:22 12:00 12:00 12:36 Temp 36.8 36.1 Pulse 65 73 Resp 16 B/P (MAP) 155/81 (105) 149/95 (113) Pulse Ox 97 98 O2 Delivery Room Air Room Air Room Air 07/12/23 07/12/23 07/12/23 07/12/23 13:00 14:00 15:00 16:00 Pulse 66 68 69 66 B/P (MAP) 134/75 (94) 146/91 (109) 151/85 (107) 163/80 (107) Pulse Ox 96 97 96 98 O2 Delivery Room Air Room Air Room Air Room Air 07/12/23 16:08 Pulse 67 07/12/23 00:00 Intake Total 200 ml Output Total 725 ml Balance -525 ml Constitutional: No AAO x 3; well-developed, other (thin and weak appearance) Respiratory: No accessory muscle use; chest expansion is symmetric, chest is bilaterally symmetric; No other Cardiovascular: regular rate-rhythm, S1 and S2, systolic murmur (soft RENATO at card base) Gastrointestional: No tender; soft; No guarding, No rebound; audible bowel sounds Extremities: No clubbing, No cyanosis, No significant edema Neurologic/Psychiatric: No oriented x 3; other (moves all limbs) Skin: normal color, warm/dry; No cyanosis, No cool, No diaphoresis; rash on exposed areas, ulcerations on exposed areas Results/Procedures: Labs Laboratory Tests 07/12/23 04:50: White Blood Count 4.7, Red Blood Count 2.58L, Hemoglobin 10.2L, Hematocrit 30L, Mean Corpuscular Volume 118H, Mean Corpuscular Hemoglobin 40H, Mean Corpuscular Hemoglobin Concent 34, Red Cell Distribution Width 15.9H, Platelet Count 142, Mean Platelet Volume 10.1, Immature Granulocyte % (Auto) 0, Neutrophils (%) (Auto) 14L, Lymphocytes (%) (Auto) 77H, Monocytes (%) (Auto) 7, Eosinophils (%) (Auto) 0, Basophils (%) (Auto) 1, Neutrophils # (Auto) 0.6L, Lymphocytes # (Auto) 3.6, Monocytes # (Auto) 0.3, Eosinophils # (Auto) 0.0, Basophils # (Auto) 0.1, Immature Granulocyte # (Auto) 0.0, Neutrophils % (Manual) 11, Lymphocytes % (Manual) 84, Monocytes % (Manual) 5, Macrocytosis MODERATE, Sodium Level 137, Potassium Level 3.9, Chloride Level 105, Carbon Dioxide Level 23, Anion Gap 9, Blood Urea Nitrogen 21H, Creatinine 1.31H, Estimat Glomerular Filtration Rate 52, BUN/Creatinine Ratio 16, Glucose Level 110H, Calcium Level 8.3L, Corrected Calcium 9.1, Phosphorus Level 2.4, Magnesium Level 2.3, Total Bilirubin 1.5H, Aspartate Amino Transf (AST/SGOT) 16, Alanine Aminotransferase (ALT/SGPT) 9, Alkaline Phosphatase 91, Total Protein 6.2L, Albumin 3.0L Microbiology 07/10/23 MRSA Screen - Final, Complete MRSA not isolated 07/10/23 Blood Culture - Preliminary, Resulted 07/10/23 Urine Culture - Final, Complete Escherichia coli Laboratory Tests 07/11/23 04:53 07/12/23 04:50 A/P: Assessment: UTI - management per medical services Dehydration (acute renal insuff) - improved/resolved Myelodysplastic syndrome - on chronic apixaban therapy that was initiated by and is maintained by his window installation subcontractor after pt had had TIAs Elevated pro-BNP likely primarily due to diminished renal clearance (acute renal insuff) CAD - s/p CABG x 2 at [place], [place] in 2007 - [facility] Dr Lima [facility] - Echocardiogram of 07-11-23 showed LVEF 45-50%, Mild to mod MR. Mild AoR. PASP 25-30 mmHg NSR on tele (pt's does not report any history of A Fib) - ECG on 07-11-23 (11:33 am): NSR, rare PAC, LAFB, incomp RBBB Dementia Gen weakness and chronic poor balance Plan: * BP not well controlled - restart home dose of Coreg and JO (-) * Monitor labs PRITI AMIN MD FACP FAC CCDS Jul 12, 2023 18:17
[2023-07-12 19:41] VITALS: BP 163/72
[2023-07-12 23:35] VITALS: BP 163/72
[2023-07-13 03:22] VITALS: BP 187/88
[2023-07-13] MEDS ORDERED: amLODIPine 10 MG TABLET ONE (03:38)
[2023-07-13] MEDS ORDERED: amLODIPine 10 MG TABLET PO ONE (03:45)
[2023-07-13 05:49] LABS: EOSINOPHILS % (AUTO) 0 % (0-10)
[2023-07-13 05:51] LABS: BASOPHILS # (AUTO) 0.1 10^3/uL (0.0-0.1); BASOPHILS % (AUTO) 2 % (0-10); HEMATOCRIT 31 % (40-54); HEMOGLOBIN 10.2 g/dL (13.3-17.7); LYMPHOCYTES # (AUTO) 2.3 10^3/uL (1.0-4.0); LYMPHOCYTES % (AUTO) 69 % (12-44); MEAN CORPUSCULAR HEMOGLOBIN 39 pg (25-34); MEAN CORPUSCULAR HGB CONC 33 g/dL (32-36); MEAN CORPUSCULAR VOLUME 116 fL (80-99); MEAN PLATELET VOLUME 10.2 fL (9.0-12.2); MONOCYTES # (AUTO) 0.4 10^3/uL (0.0-1.0); MONOCYTES % (AUTO) 11 % (0-12); NEUTROPHILS # (AUTO) 0.6 10^3/uL (1.8-7.8); NEUTROPHILS % (AUTO) 17 % (42-75); PLATELET COUNT 139 10^3/uL (130-400); WHITE BLOOD COUNT 3.3 10^3/uL (4.3-11.0)
[2023-07-13 06:10] LABS: ALBUMIN 2.9 GM/DL (3.2-4.5); BILIRUBIN,TOTAL 1.1 MG/DL (0.1-1.0); CALCIUM 8.1 MG/DL (8.5-10.1); CREATININE SERUM 1.24 MG/DL (0.60-1.30); PHOSPHORUS 2.5 MG/DL (2.3-4.7); POTASSIUM 3.4 MMOL/L (3.6-5.0); TOTAL PROTEIN 5.8 GM/DL (6.4-8.2)
[2023-07-13] MEDS: MAGNESIUM 1 GM/100 ML IVPB 100 ML IV SCH (06:13)
[2023-07-13] MEDS: POTASSIUM CHLORIDE 20 MEQ TABLET PO SCH (06:17)
[2023-07-13] MEDS: POTASSIUM CL 10MEQ/50ML IVPB 50 ML IV SCH (06:17)
[2023-07-13 07:26] VITALS: BP 135/63
[2023-07-13] MEDS ORDERED: POTASSIUM BICARB 20 MEQ effervescent TABLET PO ONE (08:00)
[2023-07-13] MEDS: amLODIPine 5 MG TABLET PO SCH (08:54)
[2023-07-13] MEDS: APIXABAN 2.5 MG TABLET PO SCH ×2 (08:54→20:02)
[2023-07-13] MEDS: carvediloL 12.5 MG TABLET PO SCH ×2 (08:54→17:08)
[2023-07-13] MEDS ORDERED: LENALIDOMIDE 5 MG PO SCH (09:00)
--- NOTE | 2023-07-13 10:23 | Physical Therapy Daily Note ---
PT Daily Note-Current Subjective No family present. Pain Section J - Health Conditions 1. Rarely or not at all 2. Occasionally 3. Frequently 4. Almost constantly 8. Unable to answer Pain Effect on Sleep: 8 Pain Interference with Therapy: 8 Pain Interference w/Day-to-Day: 8 Transfers SCALE: Activities may be completed with or without assistive devices. 9-Refmgkbvme-yvafmfr completes the activity by him/herself with no assistance from a helper. 5-Set-up or Clean-up Assistance-helper sets up or cleans up; patient completes activity. [place] assists only prior to or following the activity. 4-Supervision or Touching Assistance-helper provides verbal cues and/or touching/steadying and/or contact guard assistance as patient completes activity. Assistance may be provided throughout the activity or intermittently. 3-Partial/Moderate Assistance-helper does LESS THAN HALF the effort. [place] lifts, holds or supports trunk or limbs, but provides less than half the effort. 2-Substantial/Maximal Assistance-helper does MORE THAN HALF the effort. [place] lifts or holds trunk or limbs and provides more than half the effort. 3-Prfsgnbam-qrjusq does ALL the effort. Patient does none of the effort to complete the activity. Or, the assistance of 2 or more helpers is required for the patient to complete the activity. If activity was not attempted, code reason: 7-Patient Refused. 9-Not Applicable-not attempted and the patient did not perform the activity before the current illness, exacerbation or injury. 10-Not Attempted due to Environmental Limitations-(lack of equipment, weather restraints, etc.). 88-Not Attempted due to Medical Conditions or Safety Concerns. Lying to Sitting/Side of Bed(Q: 1 Sit to Stand (QC): 1 Chair/Lxb-kq-Nboyc Xfer(QC): 1 unable to maintain sitting EOB with dependent assist on this date Weight Bearing Right Lower Extremity: Right Full Weight Bearing Left Lower Extremity: Left Full Weight Bearing Assessment Patient remains dependent with all mobility and is unable to maintain sitting EOB without dependent assist. Dependent sit to stand and SPT with use of gait belt and blocking bilateral knees. Patient up in recliner with chair alarm activated and bilateral LE elevated. PT Mcfp Goals Robotic Weld Technician Goals PT Robotic Weld Technician Goals Time Frame: Jul 31, 2023 Roll Left & Right (QC): 3 Sit to Lying (QC): 3 Lying-Sitting on Side/Bed(QC): 3 Sit to Stand (QC): 3 Chair/Plx-af-Dgsdx Xfer(QC): 3 Walk 10 feet (QC): 3 PT Plan Treatment/Plan Treatment Plan: Continue Plan of Care Treatment Plan: Bed Mobility, Education, Functional Activity Jonathon, Functional Strength, Gait, Safety, Therapeutic Exercise, Transfers Treatment Duration: Jul 31, 2023 Frequency: 5 times per week Estimated Hrs Per Day: .25 hour per day Time Time In: 935 Time Out: 950 DATE: Jul 13, 2023 Total Billed Treatment Time: 15 Total Billed Treatment 1 visit FA 15 min JOSE PATRICK PT Jul 13, 2023 10:23
[2023-07-13 11:04] VITALS: BP 104/59
--- NOTE | 2023-07-13 11:05 | Occupational Ther Daily Note ---
OT Current Status-Daily Note Subjective Agreeable to OT Mental Status/Objective Patient Orientation: Person ADL-Treatment Therapy Code Descriptions/Definitions Functional [place] Measure: 0=Not Assessed/NA 4=Minimal Assistance 1=Total Assistance 5=Supervision or Setup 2=Maximal Assistance 6=Modified [place] 3=Moderate Assistance 7=Complete IndependenceSCALE: Activities may be completed with or without assistive devices. 6-Rbigbloqwk-nennjji completes the activity by him/herself with no assistance from a helper. 5-Set-up or Clean-up Assistance-helper sets up or cleans up; patient completes activity. [place] assists only prior to or following the activity. 4-Supervision or Touching Assistance-helper provides verbal cues and/or touching/steadying and/or contact guard assistance as patient completes activity. Assistance may be provided throughout the activity or intermittently. 3-Partial/Moderate Assistance-helper does LESS THAN HALF the effort. [place] lifts, holds or supports trunk or limbs, but provides less than half the effort. 2-Substantial/Maximal Assistance-helper does MORE THAN HALF the effort. [place] lifts or holds trunk or limbs and provides more than half the effort. 8-Phsqiideq-lfofpl does ALL the effort. Patient does none of the effort to complete the activity. Or, the assistance of 2 or more helpers is required for the patient to complete the activity. If activity was not attempted, code reason: 7-Patient Refused. 9-Not Applicable-not attempted and the patient did not perform the activity before the current illness, exacerbation or injury. 10-Not Attempted due to Environmental Limitations-(lack of equipment, weather restraints, etc.). 88-Not Attempted due to Medical Conditions or Safety Concerns. Other Treatment Functional activity for increasing endurance, command following and strength to return home w/ spouse and HH. Patient is unable to support self in sitting iEOB Education OT Patient Education: Correct positioning, Exercise program, Safety issues Teaching Recipient: Patient Teaching Methods: Demonstration, Discussion Response to Teaching: Reinforcement Needed OT Refinery Operator V[employer] Recovery Unit Goals Longterm Goals Eating (QC): 4 Oral Hygiene (QC): 4 Toileting Hygiene (QC): 3 Shower/Bathe Self (QC): 3 Upper Body Dressing (QC): 4 Lower Body Dressing (QC): 3 On/Off Footwear (QC): 3 1=Demonstrate adherence to instructed precautions during ADL tasks. 2=Patient will verbalize/demonstrate understanding of assistive devices/modifications for ADL. 3=Patient will improve strength/tolerance for activity to enable patient to perform ADL's. OT Education/Plan Problem List/Assessment Assessment: Decreased Activ Tolerance, Decreased Safety Aware, Decreased UE Strength, Dependent Transfers, Impaired Bed Mobility, Impaired Cognition, Impaired Coordination, Impaired Funct Balance, Impaired Self-Care Skills Discharge Recommendations Plan/Recommendations: Continue POC Treatment Plan/Plan of Care Treatment,Training & Education: Yes Patient would benefit from OT for education, treatment and training to promote independence in ADL's, mobility, safety and/or upper extremity function for ADL's. Plan of Care: ADL Retraining, Cognitive Retraining, Concurrent Therapy, Func tional Mobility, Group Exercise/Act as Ind, UE Funct Exercise/Act Treatment Duration: Jul 16, 2023 Frequency: 3 times per week (3-5 times per week) Estimated Hrs Per Day: .25 hour per day Agreement: Yes Rehab Potential: Poor Time Start Time: 10:00 Stop Time: 10:17 DATE: Jul 13, 2023 Total Time Billed (hr/min): 17 Billed Treatment Time FA 17 min THAD CORNELIUS OT Jul 13, 2023 11:05
--- NOTE | 2023-07-13 11:27 | Progress Note - Cardiology ---
Cardiology SOAP Progress Note Subjective: Does not answer questions Objective: I&O/Vital Signs 07/13/23 07/14/23 07/14/23 07/14/23 23:19 01:00 04:38 07:42 Temp 36.5 36.3 Pulse 87 65 75 77 Resp 18 18 B/P (MAP) 152/69 (96) 155/72 (99) Pulse Ox 97 95 O2 Delivery Room Air Room Air 07/14/23 07/14/23 07:42 08:03 Temp 36.6 Pulse 78 Resp 16 B/P (MAP) 141/75 (97) Pulse Ox 95 O2 Delivery Room Air Room Air 07/14/23 00:00 Intake Total 510 ml Output Total 650 ml Balance -140 ml Constitutional: No AAO x 3; well-developed, other (thin and weak appearance) Respiratory: No accessory muscle use; chest expansion is symmetric, chest is bilaterally symmetric; No other Cardiovascular: regular rate-rhythm, S1 and S2, systolic murmur (soft RENATO at card base) Gastrointestional: No tender; soft; No guarding, No rebound; audible bowel sounds Extremities: No clubbing, No cyanosis, No significant edema Neurologic/Psychiatric: No oriented x 3; other (moves all limbs) Skin: normal color, warm/dry; No cyanosis, No cool, No diaphoresis; rash on exposed areas, ulcerations on exposed areas Results/Procedures: Labs Laboratory Tests 07/14/23 05:08: White Blood Count 3.3L, Red Blood Count 2.68L, Hemoglobin 10.5L, Hematocrit 31L, Mean Corpuscular Volume 116H, Mean Corpuscular Hemoglobin 39H, Mean Corpuscular Hemoglobin Concent 34, Red Cell Distribution Width 15.8H, Platelet Count 143, Mean Platelet Volume 9.8, Immature Granulocyte % (Auto) 0, Neutrophils (%) (Auto) 22L, Lymphocytes (%) (Auto) 69H, Monocytes (%) (Auto) 7, Eosinophils (%) (Auto) 0, Basophils (%) (Auto) 2, Neutrophils # (Auto) 0.7L, Lymphocytes # (Auto) 2.3, Monocytes # (Auto) 0.2, Eosinophils # (Auto) 0.0, Basophils # (Auto) 0.1, Immature Granulocyte # (Auto) 0.0, Sodium Level 138, Potassium Level 3.8, Chloride Level 105, Carbon Dioxide Level 23, Anion Gap 10, Blood Urea Nitrogen 21H, Creatinine 1.33H, Estimat Glomerular Filtration Rate 51, BUN/Creatinine Ratio 16, Glucose Level 118H, Calcium Level 8.4L, Corrected Calcium 9.2, Phosphorus Level 2.5, Magnesium Level 2.0, Total Bilirubin 1.0, Aspartate Amino Transf (AST/SGOT) 19, Alanine Aminotransferase (ALT/SGPT) 12, Alkaline Phosphatase 93, Total Protein 6.2L, Albumin 3.0L Microbiology 07/10/23 MRSA Screen - Final, Complete MRSA not isolated 07/10/23 Blood Culture - Preliminary, Resulted 07/10/23 Urine Culture - Final, Complete Escherichia coli A/P: Assessment: UTI - management per medical services Dehydration (acute renal insuff) - improved/resolved Myelodysplastic syndrome - on chronic apixaban therapy that was initiated by and is maintained by his wheel alignment technician after pt had had TIAs Elevated pro-BNP likely primarily due to diminished renal clearance (acute renal insuff) CAD - s/p CABG x 2 at [place], [place] in 2007 - followed by Dr Lima (component engineer at [facility]) - Echocardiogram of 07-11-23 showed LVEF 45-50%, Mild to mod MR. Mild AoR. PASP 25-30 mmHg NSR on tele (pt's does not report any history of A Fib) - ECG on 07-11-23 (11:33 am): NSR, rare PAC, LAFB, incomp RBBB Dementia Gen weakness and chronic poor balance Plan: * BP improved with adjustment of medications * Monitor labs * Replace electrolytes MICHELLE LOPEZ Jul 13, 2023 11:27
[2023-07-13] MEDS: cefTRIAXone IV/IM 1,000 MG in NS (IVPB) 50 ML 50 ML IV SCH (12:28)
[2023-07-13] MEDS: TAMSULOSIN 0.4 MG (FLOMAX) CAP PO SCH (13:23)
--- NOTE | 2023-07-13 14:27 | Progress Note ---
Subjective Subjective/Events-last exam Patient sitting up in chair at bedside. When asked how he is feeling, he stated "a lot better than yesterday". He is able to state his full name, but doesn't really answer other questions. He is requiring 2 person assist for mobility still. Focused Exam Lactate Level 07/10/23 14:47: Lactic Acid Level 1.56 Objective Exam Last Set of Vital Signs Vital Signs Date Time Temp Pulse Resp B/P (MAP) Pulse Ox O2 Delivery O2 Flow Rate FiO2 07/13/23 12:35 66 07/13/23 11:04 36.4 16 104/59 (74) 99 Room Air Capillary Refill : Less Than 3 Seconds I&O Intake and Output 07/13/23 00:00 Intake Total 970 ml Output Total 975 ml Balance -5 ml Intake Oral 920 ml IV Total 50 ml Output Urine Total 975 ml General: Alert, No Acute Distress HEENT: Other (EOMI difficult to evaluate as he does not follow directions, but does appear to at least slightly move eyes in each direction with exam) Lungs: Clear to Auscultation Heart: Regular Rate, No Murmurs Neuro: Other (oriented only to self, does not follow directions for neuro exam, able to raise both legs off foot rest, when arms are lifted for him he let both drop back down, but with some small amount of resistance) Results/Procedures Lab Laboratory Tests 07/13/23 05:03: White Blood Count 3.3L, Red Blood Count 2.63L, Hemoglobin 10.2L, Hematocrit 31L, Mean Corpuscular Volume 116H, Mean Corpuscular Hemoglobin 39H, Mean Corpuscular Hemoglobin Concent 33, Red Cell Distribution Width 15.8H, Platelet Count 139, Mean Platelet Volume 10.2, Immature Granulocyte % (Auto) 0, Neutrophils (%) (Auto) 17L, Lymphocytes (%) (Auto) 69H, Monocytes (%) (Auto) 11, Eosinophils (%) (Auto) 0, Basophils (%) (Auto) 2, Neutrophils # (Auto) 0.6L, Lymphocytes # (Auto) 2.3, Monocytes # (Auto) 0.4, Eosinophils # (Auto) 0.0, Basophils # (Auto) 0.1, Immature Granulocyte # (Auto) 0.0, Percent Immature Platelet Fraction 3.6, Sodium Level 137, Potassium Level 3.4L, Chloride Level 106, Carbon Dioxide Level 21, Anion Gap 10, Blood Urea Nitrogen 22H, Creatinine 1.24, Estimat Glomerular Filtration Rate 56, BUN/Creatinine Ratio 18, Glucose Level 112H, Calcium Level 8.1L, Corrected Calcium 9.0, Phosphorus Level 2.5, Magnesium Level 2.0, Total Bilirubin 1.1H, Aspartate Amino Transf (AST/SGOT) 13, Alanine Aminotransferase (ALT/SGPT) 12, Alkaline Phosphatase 86, Total Protein 5.8L, Albumin 2.9L Microbiology 07/10/23 MRSA Screen - Final, Complete MRSA not isolated 07/10/23 Blood Culture - Preliminary, Resulted 07/10/23 Urine Culture - Final, Complete Escherichia coli Assessment/Plan Assessment/Plan (1) UTI (urinary tract infection) Status: Acute Assessment & Plan: E coli resistant only to ampicillin, being treated with ceftriaxone. (2) CHF (congestive heart failure) Status: Chronic Assessment & Plan: Cardiology consulted, appreciate recommendations. Echocardiogram of 07-11-23 showed LVEF 45-50% Resume SHEET METAL CONTRACTOR coreg (3) Hypothyroidism Status: Chronic Assessment & Plan: Resume home levothyroxine, check TSH. (4) Myelodysplastic syndrome Status: Chronic Assessment & Plan: On apixaban per Hematology after TIA. Continued. (5) CAD (coronary artery disease) (6) Generalized weakness Status: Acute Assessment & Plan: Suspect secondary to infection, however, per report had some increasing difficulty over last few weeks. Given his marked decline from reportedly walking to now requiring 2 person assist in spite of appropriate infection treatment, will check MRI. (7) DVT prophylaxis Status: Acute Assessment & Plan: Home apixaban KATINA ORONA MD Jul 13, 2023 14:26
[2023-07-13 15:56] VITALS: BP 144/70
--- NOTE | 2023-07-13 16:34 | Diagnostic Imaging Report ---
PROCEDURE: MR imaging of the brain without contrast. TECHNIQUE: Multiplanar, multisequence MR imaging of the brain was performed without contrast. DATE: July 13, 2023. COMPARISON: CT head July 07, 2023. MRI June 24, 2020 and February 26, 2022. HISTORY: 88-year-old male, altered mental status. Concern for stroke. FINDINGS: There is no restricted diffusion. There are significant motion limitations on the gradient echo sequence which limits evaluation for intracranial susceptibility. There is proportional prominence of the ventricles and additional CSF spaces, consistent with moderate to severe cerebral volume loss. There are extensive areas of T2 and FLAIR hyperintense signal in the periventricular and subcortical white matter which are fairly confluent. There is no clear evidence of an acute intracranial hemorrhage. There is no mass effect or midline shift. There is mild nonspecific partial opacification in the left mastoid air cells. IMPRESSION: 1. No evidence of an acute infarct or other acute intracranial abnormality. 2. Moderate to severe cerebral volume loss and probable extensive findings of chronic small vessel ischemic disease. The areas of abnormal white matter signal are substantially progressed since 2020. Dictated by: Dictated on workstation # [id number]
--- NOTE | 2023-07-13 18:04 | Progress Note - Cardiology ---
Cardiology SOAP Progress Note Subjective: Confused and mildly agitated. Not able to provide any meaningful history Objective: I&O/Vital Signs 07/13/23 07/13/23 07/13/23 07/13/23 07:07 07:26 08:18 11:04 Temp 36.2 36.4 Pulse 64 68 64 Resp 16 16 B/P (MAP) 135/63 (87) 104/59 (74) Pulse Ox 98 99 O2 Delivery Room Air Room Air Room Air 07/13/23 07/13/23 12:35 15:56 Temp 36.3 Pulse 66 67 Resp 18 B/P (MAP) 144/70 (94) Pulse Ox 96 O2 Delivery Room Air 07/13/23 00:00 Intake Total 820 ml Output Total 450 ml Balance 370 ml Constitutional: No AAO x 3; well-developed, other (thin and weak appearance) Respiratory: No accessory muscle use; chest expansion is symmetric, chest is bilaterally symmetric; No other Cardiovascular: regular rate-rhythm, S1 and S2, systolic murmur (soft RENATO at ca rd base) Gastrointestional: No tender; soft; No guarding, No rebound; audible bowel sounds Extremities: No clubbing, No cyanosis, No significant edema Neurologic/Psychiatric: No oriented x 3; other (moves all limbs) Skin: normal color, warm/dry; No cyanosis, No cool, No diaphoresis; rash on exposed areas, ulcerations on exposed areas Results/Procedures: Labs Laboratory Tests 07/13/23 05:03: White Blood Count 3.3L, Red Blood Count 2.63L, Hemoglobin 10.2L, Hematocrit 31L, Mean Corpuscular Volume 116H, Mean Corpuscular Hemoglobin 39H, Mean Corpuscular Hemoglobin Concent 33, Red Cell Distribution Width 15.8H, Platelet Count 139, Mean Platelet Volume 10.2, Immature Granulocyte % (Auto) 0, Neutrophils (%) (Auto) 17L, Lymphocytes (%) (Auto) 69H, Monocytes (%) (Auto) 11, Eosinophils (%) (Auto) 0, Basophils (%) (Auto) 2, Neutrophils # (Auto) 0.6L, Lymphocytes # (Auto) 2.3, Monocytes # (Auto) 0.4, Eosinophils # (Auto) 0.0, Basophils # (Auto) 0.1, Immature Granulocyte # (Auto) 0.0, Percent Immature Platelet Fraction 3.6, Sodium Level 137, Potassium Level 3.4L, Chloride Level 106, Carbon Dioxide Level 21, Anion Gap 10, Blood Urea Nitrogen 22H, Creatinine 1.24, Estimat Glomerular Filtration Rate 56, BUN/Creatinine Ratio 18, Glucose Level 112H, Calcium Level 8.1L, Corrected Calcium 9.0, Phosphorus Level 2.5, Magnesium Level 2.0, Total Bilirubin 1.1H, Aspartate Amino Transf (AST/SGOT) 13, Alanine Aminotransferase (ALT/SGPT) 12, Alkaline Phosphatase 86, Total Protein 5.8L, Albumin 2.9L, Thyroid Stimulating Hormone (TSH) 4.32 Microbiology 07/10/23 MRSA Screen - Final, Complete MRSA not isolated 07/10/23 Blood Culture - Preliminary, Resulted 07/10/23 Urine Culture - Final, Complete Escherichia coli Laboratory Tests 07/12/23 04:50 07/13/23 05:03 A/P: Assessment: UTI - management per medical services Dehydration (acute renal insuff) - improved/resolved Myelodysplastic syndrome - on chronic apixaban therapy that was initiated by and is maintained by his engineering project manager after pt had had TIAs Elevated pro-BNP likely primarily due to diminished renal clearance (acute renal insuff) CAD - s/p CABG x 2 at [place], [place] in 2007 - followed by Dr Lima (crm solution architect at [facility]) - Echocardiogram of 07-11-23 showed LVEF 45-50%, Mild to mod MR. Mild AoR. PASP 25-30 mmHg NSR on tele (pt's does not report any history of A Fib) - ECG on 07-11-23 (11:33 am): NSR, rare PAC, LAFB, incomp RBBB Dementia Gen weakness and chronic poor balance Plan: * BP improved with adjustment of medications * Monitor labs * Replace electrolytes PRITI AMIN MD [facility] Jul 13, 2023 18:04
--- NOTE | 2023-07-13 19:18 | Physician Query-Final Dx ---
ARETHA DE JESUS 07/13/23 1918: Final Diagnosis Give Final Diagnosis Please give Final Diagnosis Clinical Validation Clarification Dr Sedrick Willoughby or Dr. Niesha Orona Sepsis has been documented in the medical record. After study, has Sepsis been ruled out? If it has been ruled out, please document Sepsis ruled out" in the progress notes and/or discharge summary. Yes/Agreed, Sepsis ruled out/is not clinically valid Not agreed, Sepsis has not been ruled out/is clinically valid* *Please document the clinical evidence supportive of this diagnosis (even if now resolved) in the Progress Notes and Discharge Summary Other, with explanation of the clinical findings Clinically undetermined, no explanation for the clinical findings Additional information: admitted with UTI and CHF Admission VS/LABS: HR 70, RR 15, BP 159/64, SpO2 97% sat on room air, T 36.5 WBC 4.2 did decrease to 3.0, proBNP 34,928, lactic acid 1.56, Treatment: ER: ceftriaxone IV, normal saline 1 L, In responding to this query, please exercise your independent professional judgment. The purpose of this communication is to more accurately reflect the complexity of your patients condition. The fact that a question is asked does not imply that any particular answer is desired or expected. Thank you for your timely response to this clarification. Aretha De Jesus MSN, RN Clinical Gas Engine Operator [employer] [email or web address] KATINA ORONA MD 07/14/23 1600: Final Diagnosis Give Final Diagnosis Patient has UTI, but not sepsis. ARETHA DE JESUS Jul 13, 2023 19:18 KATINA ORONA MD Jul 14, 2023 16:00
[2023-07-13 19:48] VITALS: BP 129/75
[2023-07-13 23:19] VITALS: BP 152/69
[2023-07-14 04:38] VITALS: BP 155/72
[2023-07-14 05:35] LABS: BASOPHILS # (AUTO) 0.1 10^3/uL (0.0-0.1); BASOPHILS % (AUTO) 2 % (0-10); EOSINOPHILS % (AUTO) 0 % (0-10); HEMATOCRIT 31 % (40-54); HEMOGLOBIN 10.5 g/dL (13.3-17.7); LYMPHOCYTES # (AUTO) 2.3 10^3/uL (1.0-4.0); LYMPHOCYTES % (AUTO) 69 % (12-44); MEAN CORPUSCULAR HEMOGLOBIN 39 pg (25-34); MEAN CORPUSCULAR HGB CONC 34 g/dL (32-36); MEAN CORPUSCULAR VOLUME 116 fL (80-99); MEAN PLATELET VOLUME 9.8 fL (9.0-12.2); MONOCYTES # (AUTO) 0.2 10^3/uL (0.0-1.0); MONOCYTES % (AUTO) 7 % (0-12); NEUTROPHILS # (AUTO) 0.7 10^3/uL (1.8-7.8); NEUTROPHILS % (AUTO) 22 % (42-75); PLATELET COUNT 143 10^3/uL (130-400); WHITE BLOOD COUNT 3.3 10^3/uL (4.3-11.0)
[2023-07-14 05:46] LABS: POTASSIUM 3.8 MMOL/L (3.6-5.0)
[2023-07-14 05:48] LABS: CALCIUM 8.4 MG/DL (8.5-10.1)
[2023-07-14 05:49] LABS: TOTAL PROTEIN 6.2 GM/DL (6.4-8.2)
[2023-07-14 05:52] LABS: CREATININE SERUM 1.33 MG/DL (0.60-1.30); PHOSPHORUS 2.5 MG/DL (2.3-4.7)
[2023-07-14] MEDS: POTASSIUM CL 10MEQ/50ML IVPB 50 ML IV SCH (05:58)
[2023-07-14] MEDS: MAGNESIUM 1 GM/100 ML IVPB 100 ML IV SCH (05:58)
[2023-07-14] MEDS: POTASSIUM CHLORIDE 20 MEQ TABLET PO SCH ×2 (05:58→08:18)
[2023-07-14] MEDS: LEVOTHYROXINE 75 MCG TABLET PO SCH ×2 (06:06→06:54)
--- NOTE | 2023-07-14 07:30 | Progress Note ---
CAITLYN TORREZ MD,RESIDENT 07/14/23 5930: Subjective Subjective/Events-last exam No acute events overnight. No change in mental status from admission. Pt with no complaints today. Objective Exam Last Set of Vital Signs Vital Signs Date Time Temp Pulse Resp B/P (MAP) Pulse Ox O2 Delivery O2 Flow Rate FiO2 07/14/23 04:38 36.3 75 18 155/72 (99) 95 Room Air Capillary Refill : Less Than 3 Seconds I&O Intake and Output 07/14/23 00:00 Intake Total 510 ml Output Total 900 ml Balance -390 ml Intake Oral 460 ml IV Total 50 ml Output Urine Total 900 ml Results/Procedures Lab Laboratory Tests 07/14/23 05:08: White Blood Count 3.3L, Red Blood Count 2.68L, Hemoglobin 10.5L, Hematocrit 31L, Mean Corpuscular Volume 116H, Mean Corpuscular Hemoglobin 39H, Mean Corpuscular Hemoglobin Concent 34, Red Cell Distribution Width 15.8H, Platelet Count 143, Mean Platelet Volume 9.8, Immature Granulocyte % (Auto) 0, Neutrophils (%) ( Auto) 22L, Lymphocytes (%) (Auto) 69H, Monocytes (%) (Auto) 7, Eosinophils (%) (Auto) 0, Basophils (%) (Auto) 2, Neutrophils # (Auto) 0.7L, Lymphocytes # (Auto) 2.3, Monocytes # (Auto) 0.2, Eosinophils # (Auto) 0.0, Basophils # (Auto) 0.1, Immature Granulocyte # (Auto) 0.0, Sodium Level 138, Potassium Level 3.8, Chloride Level 105, Carbon Dioxide Level 23, Anion Gap 10, Blood Urea Nitrogen 21H, Creatinine 1.33H, Estimat Glomerular Filtration Rate 51, BUN/Creatinine Ratio 16, Glucose Level 118H, Calcium Level 8.4L, Corrected Calcium 9.2, Phosphorus Level 2.5, Magnesium Level 2.0, Total Bilirubin 1.0, Aspartate Amino Transf (AST/SGOT) 19, Alanine Aminotransferase (ALT/SGPT) 12, Alkaline Phosphatase 93, Total Protein 6.2L, Albumin 3.0L Microbiology 07/10/23 MRSA Screen - Final, Complete MRSA not isolated 07/10/23 Blood Culture - Preliminary, Resulted 07/10/23 Urine Culture - Final, Complete Escherichia coli Assessment/Plan Assessment/Plan Admission Dx UTI Admission Status: Inpatient Order (span 2 midnights) Reason for Inpatient Admission: UTI (1) UTI (urinary tract infection) Status: Acute Assessment & Plan: E coli resistant only to ampicillin, being treated with ceftriaxone. (2) CHF (congestive heart failure) Status: Chronic Assessment & Plan: Cardiology consulted, appreciate recommendations. Echocardiogram of 07-11-23 showed LVEF 45-50% Resume ORTHOPEDIC PHYSICIAN ASSISTANT coreg (3) Hypothyroidism Status: Chronic Assessment & Plan: Resume home levothyroxine, check TSH. (4) Myelodysplastic syndrome Status: Chronic Assessment & Plan: On apixaban per Hematology after TIA. Continued. (5) CAD (coronary artery disease) (6) Generalized weakness Status: Acute Assessment & Plan: Suspect secondary to infection, however, per report had some increasing difficulty over last few weeks. Given his marked decline from reportedly walking to now requiring 2 person assist in spite of appropriate infection treatment. MRI demonstrates progression of white mater abnormalities and chronic small vessel ischemic disease Will speak to family about possible jail care placement on discharge (7) DVT prophylaxis Status: Acute Assessment & Plan: Home apixaban KATINA ORONA MD 07/14/23 1543: Supervisory-Addendum Brief Supervisory Addendum I personally performed the orellana portions of the visit, discussed case with resident and concur with resident documentation of history, physical exam, assessment and treatment plan unless otherwise noted. Spoke with his yesterday afternoon, she reported he normally can get up with assitance and use walker to get to toilet, requires assistance up and down with toileting and hygiene as well as assistance with feeding, but normally can hold conversation and know where he is. Today he is speaking in slightly longer phrases, but not with logical goal directed content. He is moving more, but trying to get out of bed, not purposeful. Continue to reorient, treat infection. CAITLYN TORREZ MD,RESIDENT Jul 14, 2023 07:30 KATINA ORONA MD Jul 14, 2023 15:43
[2023-07-14 07:42] VITALS: BP 141/75
[2023-07-14] MEDS: amLODIPine 5 MG TABLET PO SCH (08:17)
[2023-07-14] MEDS: APIXABAN 2.5 MG TABLET PO SCH ×2 (08:17→21:09)
[2023-07-14] MEDS: carvediloL 12.5 MG TABLET PO SCH ×2 (08:18→17:15)
--- NOTE | 2023-07-14 09:30 | Progress Note - Cardiology ---
Cardiology SOAP Progress Note Subjective: Unable to obtain any information from patient Objective: I&O/Vital Signs 07/14/23 07/15/23 07/15/23 07/15/23 23:44 01:00 03:13 07:35 Temp 36.5 36.3 Pulse 69 74 75 67 Resp 16 16 B/P (MAP) 126/67 (86) 138/65 (89) Pulse Ox 97 96 O2 Delivery Room Air Room Air 07/15/23 08:02 Temp 36.7 Pulse 66 Resp 18 B/P (MAP) 128/67 (87) Pulse Ox 98 O2 Delivery Room Air 07/15/23 00:00 Intake Total 1010 ml Output Total 450 ml Balance 560 ml Constitutional: No AAO x 3; well-developed, other (thin and weak appearance) Respiratory: No accessory muscle use; chest expansion is symmetric, chest is bilaterally symmetric; No other Cardiovascular: regular rate-rhythm, S1 and S2, systolic murmur (soft RENATO at card base) Gastrointestional: No tender; soft; No guarding, No rebound; audible bowel sounds Extremities: No clubbing, No cyanosis, No significant edema Neurologic/Psychiatric: No oriented x 3; other (moves all limbs) Skin: normal color, warm/dry; No cyanosis, No cool, No diaphoresis; rash on exposed areas, ulcerations on exposed areas Results/Procedures: Labs Laboratory Tests 07/15/23 05:29: White Blood Count 3.6L, Red Blood Count 2.55L, Hemoglobin 9.9L, Hematocrit 30L, Mean Corpuscular Volume 117H, Mean Corpuscular Hemoglobin 39H, Mean Corpuscular Hemoglobin Concent 33, Red Cell Distribution Width 15.7H, Platelet Count 144, Mean Platelet Volume 9.7, Immature Granulocyte % (Auto) 0, Neutrophils (%) ( Auto) 30L, Lymphocytes (%) (Auto) 63H, Monocytes (%) (Auto) 6, Eosinophils (%) (Auto) 0, Basophils (%) (Auto) 1, Neutrophils # (Auto) 1.1L, Lymphocytes # (Auto) 2.3, Monocytes # (Auto) 0.2, Eosinophils # (Auto) 0.0, Basophils # (Auto) 0.0, Immature Granulocyte # (Auto) 0.0, Sodium Level 136, Potassium Level 3.7, Chloride Level 104, Carbon Dioxide Level 22, Anion Gap 10, Blood Urea Nitrogen 23H, Creatinine 1.42H, Estimat Glomerular Filtration Rate 47, BUN/Creatinine Ratio 16, Glucose Level 111H, Calcium Level 8.3L, Corrected Calcium 9.2, Phosphorus Level 2.7, Magnesium Level 1.9, Total Bilirubin 0.8, Aspartate Amino Transf (AST/SGOT) 24, Alanine Aminotransferase (ALT/SGPT) 16, Alkaline Phosphatase 104, Total Protein 5.9L, Albumin 2.9L Microbiology 07/10/23 MRSA Screen - Final, Complete MRSA not isolated 07/10/23 Blood Culture - Preliminary, Resulted 07/10/23 Urine Culture - Final, Complete Escherichia coli Procedures NAME: [facility] REC#: [id number] PT STATUS: ADM IN : 1935 PHYSICIAN: KATINA ORONA MD ADMIT DATE: 07/10/23 Signed Date of Exam:07/13/23 MRI BRAIN W/O CONTRAST PROCEDURE: MR imaging of the brain without contrast. TECHNIQUE: Multiplanar, multisequence MR imaging of the brain was performed without contrast. DATE: July 13, 2023. COMPARISON: CT head July 07, 2023. MRI June 24, 2020 and February 26, 2022. HISTORY: 88-year-old male, altered mental status. Concern for stroke. FINDINGS: There is no restricted diffusion. There are significant motion limitations on the gradient echo sequence which limits evaluation for intracranial susceptibility. There is proportional prominence of the ventricles and additional CSF spaces, consistent with moderate to severe cerebral volume loss. There are extensive areas of T2 and FLAIR hyperintense signal in the periventricular and subcortical white matter which are fairly confluent. There is no clear evidence of an acute intracranial hemorrhage. There is no mass effect or midline shift. There is mild nonspecific partial opacification in the left mastoid air cells. IMPRESSION: 1. No evidence of an acute infarct or other acute intracranial abnormality. 2. Moderate to severe cerebral volume loss and probable extensive findings of chronic small vessel ischemic disease. The areas of abnormal white matter signal are substantially progressed since 2020. 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 Mild AoR. PASP 25-30 mmHg NSR on tele (pt's does not report any history of A Fib) - ECG on 07-11-23 (11:33 am): NSR, rare PAC, LAFB, incomp RBBB Dementia Gen weakness and chronic poor balance Plan: * Continue current cardiac regimen * Monitor labs * Replace electrolytes MICHELLE LOPEZ Jul 14, 2023 09:30
[2023-07-14 11:22] VITALS: BP 137/73
--- NOTE | 2023-07-14 11:39 | Occupational Ther Daily Note ---
OT Current Status-Daily Note Subjective Patient is very agitated, attempting to exit bed unsafe, unable to follow commands to reposition or stand, RN assist OT w/ bed mobility and hygiene Mental Status/Objective Patient Orientation: Confused Attachments: Telemetry (disconnected by patient) ADL-Treatment Therapy Code Descriptions/Definitions Functional Export Measure: 0=Not Assessed/NA 4=Minimal Assistance 1=Total Assistance 5=Supervision or Setup 2=Maximal Assistance 6=Modified Export 3=Moderate Assistance 7=Complete IndependenceSCALE: Activities may be completed with or without assistive devices. 6-Cvyycndbxw-nvfbzsn completes the activity by him/herself with no assistance from a helper. 5-Set-up or Clean-up Assistance-helper sets up or cleans up; patient completes activity. [place] assists only prior to or following the activity. 4-Supervision or Touching Assistance-helper provides verbal cues and/or touching/steadying and/or contact guard assistance as patient completes activity. Assistance may be provided throughout the activity or intermittently. 3-Partial/Moderate Assistance-helper does LESS THAN HALF the effort. [place] lifts, holds or supports trunk or limbs, but provides less than half the effort. 2-Substantial/Maximal Assistance-helper does MORE THAN HALF the effort. [place] lifts or holds trunk or limbs and provides more than half the effort. 5-Peritrzaf-ergjmt does ALL the effort. Patient does none of the effort to complete the activity. Or, the assistance of 2 or more helpers is required for the patient to complete the activity. If activity was not attempted, code reason: 7-Patient Refused. 9-Not Applicable-not attempted and the patient did not perform the activity before the current illness, exacerbation or injury. 10-Not Attempted due to Environmental Limitations-(lack of equipment, weather restraints, etc.). 88-Not Attempted due to Medical Conditions or Safety Concerns. Oral Hygiene (QC): 2 Toileting Hygiene (QC): 1 Education OT Patient Education: Correct positioning, Modified ADL techniques, Safety issues Teaching Recipient: Patient Response to Teaching: Unable to Comprehend OT Nursing Home Goals Nursing Home Goals Eating (QC): 4 Oral Hygiene (QC): 4 Toileting Hygiene (QC): 3 Shower/Bathe Self (QC): 3 Upper Body Dressing (QC): 4 Lower Body Dressing (QC): 3 On/Off Footwear (QC): 3 1=Demonstrate adherence to instructed precautions during ADL tasks. 2=Patient will verbalize/demonstrate understanding of assistive devices/modifications for ADL. 3=Patient will improve strength/tolerance for activity to enable patient to perform ADL's. OT Education/Plan Problem List/Assessment Assessment: Decreased Activ Tolerance, Decreased Safety Aware, Decreased UE Strength, Impaired Bed Mobility, Impaired Cognition, Impaired Coordination, Impaired Funct Balance, Impaired Self-Care Skills Discharge Recommendations Plan/Recommendations: Continue POC Treatment Plan/Plan of Care Treatment,Training & Education: Yes Patient would benefit from OT for education, treatment and training to promote independence in ADL's, mobility, safety and/or upper extremity function for ADL's. Plan of Care: ADL Retraining, Cognitive Retraining, Concurrent Therapy, Functional Mobility, Group Exercise/Act as Ind, UE Funct Exercise/Act Treatment Duration: Jul 16, 2023 Frequency: 3 times per week (3-5 times per week) Estimated Hrs Per Day: .25 hour per day Agreement: Yes Rehab Potential: Poor Patient requires 24 hour care and assist of 2 persons for transfers and LB ADLS Time Start Time: 10:41 Stop Time: 10:51 DATE: Jul 14, 2023 Total Time Billed (hr/min): 10 Billed Treatment Time ADL 10 min THAD CORNELIUS OT Jul 14, 2023 11:39
[2023-07-14] MEDS: cefTRIAXone IV/IM 1,000 MG in NS (IVPB) 50 ML 50 ML IV SCH (12:12)
[2023-07-14 15:28] VITALS: BP 139/65
--- NOTE | 2023-07-14 15:43 | Physical Therapy Daily Note ---
PT Daily Note-Current Subjective Patient left sidelying upon PT arrival, in the room, both agreeable to treatment. Pain Section J - Health Conditions 1. Rarely or not at all 2. Occasionally 3. Frequently 4. Almost constantly 8. Unable to answer Pain Effect on Sleep: 8 Pain Interference with Therapy: 8 Pain Interference w/Day-to-Day: 8 Transfers SCALE: Activities may be completed with or without assistive devices. 3-Brozmfotcj-rjsbsms completes the activity by him/herself with no assistance from a helper. 5-Set-up or Clean-up Assistance-helper sets up or cleans up; patient completes activity. [place] assists only prior to or following the activity. 4-Supervision or Touching Assistance-helper provides verbal cues and/or boubacar tere/steadying and/or contact guard assistance as patient completes activity. Assistance may be provided throughout the activity or intermittently. 3-Partial/Moderate Assistance-helper does LESS THAN HALF the effort. [place] lifts, holds or supports trunk or limbs, but provides less than half the effort. 2-Substantial/Maximal Assistance-helper does MORE THAN HALF the effort. [place] lifts or holds trunk or limbs and provides more than half the effort. 4-Sqacognlx-nsjtum does ALL the effort. Patient does none of the effort to complete the activity. Or, the assistance of 2 or more helpers is required for the patient to complete the activity. If activity was not attempted, code reason: 7-Patient Refused. 9-Not Applicable-not attempted and the patient did not perform the activity before the current illness, exacerbation or injury. 10-Not Attempted due to Environmental Limitations-(lack of equipment, weather restraints, etc.). 88-Not Attempted due to Medical Conditions or Safety Concerns. Roll Left & Right (QC): 1 Sit to Lying (QC): 1 Lying to Sitting/Side of Bed(Q: 1 Weight Bearing Right Lower Extremity: Right Full Weight Bearing Left Lower Extremity: Left Full Weight Bearing Assessment Current Status: Poor Progress Patient remains dependent with all mobility and is unable to maintain sitting EOB without dependent assist. Patient frequently leans backwards despite verbal cues from PT. This frequent movement causes his pelvis to continuously scoot forwards to the edge of the bed. Patient is unable to use his LEs to assist himself back onto the bed. Patient requires total A to return to bed. Upon r eturning to bed patient is incontinent of BM. Nurse assists this PT with cleaning and patient requires total A x 2. Patient in bed post treatment with all needs met, nursing notified, call light in reach and patients in the room. PT Chief Librarian Branch Goals Senior Care Goals PT Senior Care Goals Time Frame: Jul 31, 2023 Roll Left & Right (QC): 3 Sit to Lying (QC): 3 Lying-Sitting on Side/Bed(QC): 3 Sit to Stand (QC): 3 Chair/Hqx-rp-Rhoan Xfer(QC): 3 Walk 10 feet (QC): 3 PT Plan Treatment/Plan Treatment Plan: Continue Plan of Care Treatment Plan: Bed Mobility, Education, Functional Activity Jonathon, Functional Strength, Gait, Safety, Therapeutic Exercise, Transfers Treatment Duration: Jul 31, 2023 Frequency: 5 times per week Estimated Hrs Per Day: .25 hour per day Safety Risks/Education Patient Education: Transfer Techniques Teaching Recipient: Patient, Family Teaching Methods: Demonstration, Discussion Response to Teaching: Reinforcement Needed Time Time In: 1421 Time Out: 1435 DATE: Jul 14, 2023 Total Billed Treatment Time: 14 Total Billed Treatment Visit, GT MIKAEL MANZO PT Jul 14, 2023 15:43
[2023-07-14] MEDS: ACETAMINOPHEN 500 MG TABLET PO PRN (17:15)
[2023-07-14] MEDS: TAMSULOSIN 0.4 MG (FLOMAX) CAP PO SCH (17:15)
[2023-07-14 20:31] VITALS: BP 121/61
[2023-07-14] MEDS: MELATONIN 3 MG TABLET PO PRN (21:09)
[2023-07-14 23:44] VITALS: BP 126/67
[2023-07-15 03:13] VITALS: BP 138/65
[2023-07-15] MEDS: LEVOTHYROXINE 75 MCG TABLET PO SCH (05:15)
[2023-07-15] MEDS: ACETAMINOPHEN 500 MG TABLET PO PRN ×2 (05:16→19:57)
[2023-07-15 05:43] LABS: BASOPHILS % (AUTO) 1 % (0-10); EOSINOPHILS % (AUTO) 0 % (0-10); HEMATOCRIT 30 % (40-54); HEMOGLOBIN 9.9 g/dL (13.3-17.7); LYMPHOCYTES # (AUTO) 2.3 10^3/uL (1.0-4.0); LYMPHOCYTES % (AUTO) 63 % (12-44); MEAN CORPUSCULAR HEMOGLOBIN 39 pg (25-34); MEAN CORPUSCULAR HGB CONC 33 g/dL (32-36); MEAN CORPUSCULAR VOLUME 117 fL (80-99); MEAN PLATELET VOLUME 9.7 fL (9.0-12.2); MONOCYTES # (AUTO) 0.2 10^3/uL (0.0-1.0); MONOCYTES % (AUTO) 6 % (0-12); NEUTROPHILS # (AUTO) 1.1 10^3/uL (1.8-7.8); NEUTROPHILS % (AUTO) 30 % (42-75); PLATELET COUNT 144 10^3/uL (130-400); WHITE BLOOD COUNT 3.6 10^3/uL (4.3-11.0)
[2023-07-15 05:51] LABS: ALBUMIN 2.9 GM/DL (3.2-4.5); POTASSIUM 3.7 MMOL/L (3.6-5.0)
[2023-07-15 05:53] LABS: CALCIUM 8.3 MG/DL (8.5-10.1)
[2023-07-15 05:54] LABS: TOTAL PROTEIN 5.9 GM/DL (6.4-8.2)
[2023-07-15 05:56] LABS: BILIRUBIN,TOTAL 0.8 MG/DL (0.1-1.0)
[2023-07-15 05:57] LABS: PHOSPHORUS 2.7 MG/DL (2.3-4.7)
[2023-07-15 05:58] LABS: CREATININE SERUM 1.42 MG/DL (0.60-1.30)
[2023-07-15 06:01] LABS: MAGNESIUM 1.9 MG/DL (1.6-2.4)
[2023-07-15] MEDS: POTASSIUM CL 10MEQ/50ML IVPB 50 ML IV SCH (06:05)
[2023-07-15] MEDS: POTASSIUM CHLORIDE 20 MEQ TABLET PO SCH ×2 (06:05→06:13)
[2023-07-15] MEDS: MAGNESIUM 1 GM/100 ML IVPB 100 ML IV SCH ×3 (06:16→06:48)
--- NOTE | 2023-07-15 06:42 | Progress Note ---
CAITLYN TORREZ MD,RESIDENT 07/15/23 0641: Subjective Subjective/Events-last exam No acute events overnight. Pt marginally alert, will greet with verbal stimulation. Toady Pt unable to state his name. Limited PO intake. Pt seemed drowsy on exam. Objective Exam Last Set of Vital Signs Vital Signs Date Time Temp Pulse Resp B/P (MAP) Pulse Ox O2 Delivery O2 Flow Rate FiO2 07/15/23 03:13 36.3 75 16 138/65 (89) 96 Room Air Capillary Refill : Less Than 3 Seconds I&O Intake and Output 07/15/23 00:00 Intake Total 1060 ml Output Total 700 ml Balance 360 ml Intake Oral 1010 ml IV Total 50 ml Output Urine Total 700 ml # Bowel Movements 6 General: Alert, Cooperative HEENT: Atraumatic Lungs: Normal Air Movement Heart: Regular Rate Abdomen: Soft, No Tenderness Extremities: No Edema Psych/Mental Status: Other (altered; unable to follow all verbal commands) Results/Procedures Lab Laboratory Tests 07/15/23 05:29: White Blood Count 3.6L, Red Blood Count 2.55L, Hemoglobin 9.9L, Hematocrit 30L, Mean Corpuscular Volume 117H, Mean Corpuscular Hemoglobin 39H, Mean Corpuscular Hemoglobin Concent 33, Red Cell Distribution Width 15.7H, Platelet Count 144, Mean Platelet Volume 9.7, Immature Granulocyte % (Auto) 0, Neutrophils (%) (Auto) 30L, Lymphocytes (%) (Auto) 63H, Monocytes (%) (Auto) 6, Eosinophils (%) (Auto) 0, Basophils (%) (Auto) 1, Neutrophils # (Auto) 1.1L, Lymphocytes # (Auto) 2.3, Monocytes # (Auto) 0.2, Eosinophils # (Auto) 0.0, Basophils # (Auto) 0.0, Immature Granulocyte # (Auto) 0.0, Sodium Level 136, Potassium Level 3.7, Chloride Level 104, Carbon Dioxide Level 22, Anion Gap 10, Blood Urea Nitrogen 23H, Creatinine 1.42H, Estimat Glomerular Filtration Rate 47, BUN/Creatinine Ratio 16, Glucose Level 111H, Calcium Level 8.3L, Corrected Calcium 9.2, Phosphorus Level 2.7, Magnesium Level 1.9, Total Bilirubin 0.8, Aspartate Amino Transf (AST/SGOT) 24, Alanine Aminotransferase (ALT/SGPT) 16, Alkaline Phosphatase 104, Total Protein 5.9L, Albumin 2.9L Microbiology 07/10/23 MRSA Screen - Final, Complete MRSA not isolated 07/10/23 Blood Culture - Preliminary, Resulted 07/10/23 Urine Culture - Final, Complete Escherichia coli Assessment/Plan Assessment/Plan Admission Status: Inpatient Order (span 2 midnights) Reason for Inpatient Admission: AMS, generalized weakness (1) UTI (urinary tract infection) Status: Acute Assessment & Plan: E coli resistant only to ampicillin, being treated with ceftriaxone. (2) Generalized weakness Status: Acute Assessment & Plan: Suspect secondary to infection, however, per report had some increasing difficulty over last few weeks. Given his marked decline from reportedly walking to now requiring 2 person assist in spite of appropriate infection treatment. MRI demonstrates progression of white mater abnormalities and chronic small vessel ischemic disease Pt accepted at [facility], will plan for discharge 07/16. (3) CHF (congestive heart failure) Status: Chronic Assessment & Plan: Cardiology consulted, appreciate recommendations. Echocardiogram of 07-11-23 showed LVEF 45-50% Resume BLIND TEACHER coreg (4) Hypothyroidism Status: Chronic Assessment & Plan: Resume home levothyroxine, check TSH. (5) Myelodysplastic syndrome Status: Chronic Assessment & Plan: On apixaban per Hematology after TIA. Continued. (6) CAD (coronary artery disease) (7) DVT prophylaxis Status: Acute Assessment & Plan: Home apixaban KATINA ORONA MD 07/15/23 3553: Supervisory-Addendum Brief Supervisory Addendum I personally performed the orellana portions of the visit, discussed case with resident and concur with resident documentation of history, physical exam, ass essment and treatment plan unless otherwise noted. TSH normal. CAITLYN TORREZ MD,RESIDENT Jul 15, 2023 06:41 KATINA ORONA MD Jul 15, 2023 17:13
[2023-07-15 08:02] VITALS: BP 128/67
[2023-07-15] MEDS ORDERED: POTASSIUM CHLORIDE 20 MEQ TABLET PO ONE (09:00)
[2023-07-15] MEDS: APIXABAN 2.5 MG TABLET PO SCH ×2 (09:09→19:56)
[2023-07-15] MEDS: amLODIPine 5 MG TABLET PO SCH (09:09)
[2023-07-15] MEDS: carvediloL 12.5 MG TABLET PO SCH ×2 (09:09→18:08)
--- NOTE | 2023-07-15 09:24 | Progress Note - Cardiology ---
Cardiology SOAP Progress Note Subjective: Unable to obtain any information from patient No visible signs of distress Objective: I&O/Vital Signs Constitutional: No AAO x 3; well-developed, other (thin and weak appearance) Respiratory: No accessory muscle use; chest expansion is symmetric, chest is bilaterally symmetric; No other Cardiovascular: regular rate-rhythm, S1 and S2, systolic murmur (soft RENATO at card base) Gastrointestional: No tender; soft; No guarding, No rebound; audible bowel sounds Extremities: No clubbing, No cyanosis, No significant edema Neurologic/Psychiatric: No oriented x 3; other (moves all limbs) Skin: normal color, warm/dry; No cyanosis, No cool, No diaphoresis; rash on exposed areas, ulcerations on exposed areas Results/Procedures: Labs Microbiology 07/10/23 MRSA Screen - Final, Complete MRSA not isolated 07/10/23 Blood Culture - Final, Complete 07/10/23 Urine Culture - Final, Complete Escherichia coli A/P: Assessment: UTI - management per medical services Dehydration (acute renal insuff) - improved/resolved Myelodysplastic syndrome - on chronic apixaban therapy that was initiated by and is maintained by his workers compensation claims specialist after pt had had TIAs Elevated pro-BNP likely primarily due to diminished renal clearance (acute renal insuff) CAD - s/p CABG x 2 at [place], [place] in 2007 - followed by Dr Lima (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) - Echocardiogram of 07-11-23 showed LVEF 45-50%, Mild to mod MR. Mild AoR. PASP 25-30 mmHg NSR on tele (pt's does not report any history of A Fib) - ECG on 07-11-23 (11:33 am): NSR, rare PAC, LAFB, incomp RBBB Dementia Gen weakness and chronic poor balance Plan: * Continue current cardiac regimen * Monitor labs * D/C tele * Ok to discharge from cardiac stand point on current cardiac regimen MICHELLE LOPEZ Jul 15, 2023 09:24
--- NOTE | 2023-07-15 11:27 | Physical Therapy Daily Note ---
PT Daily Note-Current Subjective Pt found laying in bed upon entry /c family present. Pt very drowsy and is displays is only partially able to respond to helper's commands. Does not verbalize throughout visit. Pain Section J - Health Conditions 1. Rarely or not at all 2. Occasionally 3. Frequently 4. Almost constantly 8. Unable to answer Pain Effect on Sleep: 8 Pain Interference with Therapy: 8 Pain Interference w/Day-to-Day: 8 Mental Status Patient Orientation: Confused Attachments: Henao Catheter Transfers SCALE: Activities may be completed with or without assistive devices. 9-Cvwkktfbco-badlsyl completes the activity by him/herself with no assistance from a helper. 5-Set-up or Clean-up Assistance-helper sets up or cleans up; patient completes activity. [place] assists only prior to or following the activity. 4-Supervision or Touching Assistance-helper provides verbal cues and/or touching/steadying and/or contact guard assistance as patient completes activity. Assistance may be provided throughout the activity or intermittently. 3-Partial/Moderate Assistance-helper does LESS THAN HALF the effort. [place] lifts, holds or supports trunk or limbs, but provides less than half the effort. 2-Substantial/Maximal Assistance-helper does MORE THAN HALF the effort. [place] lifts or holds trunk or limbs and provides more than half the effort. 1-Yggxlxvig-sowlbu does ALL the effort. Patient does none of the effort to complete the activity. Or, the assistance of 2 or more helpers is required for the patient to complete the activity. If activity was not attempted, code reason: 7-Patient Refused. 9-Not Applicable-not attempted and the patient did not perform the activity before the current illness, exacerbation or injury. 10-Not Attempted due to Environmental Limitations-(lack of equipment, weather restraints, etc.). 88-Not Attempted due to Medical Conditions or Safety Concerns. Sit to Lying (QC): 1 Lying to Sitting/Side of Bed(Q: 1 Weight Bearing Right Lower Extremity: Right Full Weight Bearing Left Lower Extremity: Left Full Weight Bearing Gait Training Does the Patient Walk?: No and Walking Goal IS indicated Assessment Current Status: Poor Progress Pt is dependent /c lying to sitting transfer for LE moving and trunk lifting. Pt attempts to more LEs towards edge of bed but does so unsuccessfully. After being seated on the edge of bed pt was dependent to maintain seated position. [place] gave verbal cues to pt to place hands on bed to hold self up but pt is able to due so. Pt leans posteriorly while being seated upright and continues to push back increasingly hard against helper likely due to fatigue. Pt held upright in seated position or approximately 45 seconds before laying back down. Pt is dependent /c sitting to lying transfer and required assistance /c trunk lowe ring, LE lifting, as well as 2-person max assist to scoot back in bed. Pt repositioned supine in bed /c HOB elevated, call light in place, present, and all needs met. Continue to progress pt per POC. PT Plant Control Operator Goals Long-Term Goals PT Plant Control Operator Goals Time Frame: Jul 31, 2023 Roll Left & Right (QC): 3 Sit to Lying (QC): 3 Lying-Sitting on Side/Bed(QC): 3 Sit to Stand (QC): 3 Chair/Vzf-to-Amtat Xfer(QC): 3 Walk 10 feet (QC): 3 PT Plan Treatment/Plan Treatment Plan: Continue Plan of Care Treatment Plan: Bed Mobility, Education, Functional Activity Jonathon, Functional Strength, Gait, Safety, Therapeutic Exercise, Transfers Treatment Duration: Jul 31, 2023 Frequency: 5 times per week Estimated Hrs Per Day: .25 hour per day Time Time In: 1104 Time Out: 1117 DATE: Jul 15, 2023 Total Billed Treatment Time: 13 Total Billed Treatment 1 visit FA x 1 EKATERINA BUTLER PTA Jul 15, 2023 11:26
[2023-07-15] MEDS: cefTRIAXone IV/IM 1,000 MG in NS (IVPB) 50 ML 50 ML IV SCH (11:50)
[2023-07-15 12:30] VITALS: BP 111/61
--- NOTE | 2023-07-15 12:50 | Occ Therapy Progress Note ---
Therapy Progress Note Patient is not following commands, dependent bed mobility and unable to sit EOB w/o max-dependent support. NO visit this date THAD CORNELIUS OT Jul 15, 2023 12:50
[2023-07-15] MEDS: risperiDONE 0.5 MG TABLET PO PRN ×2 (14:21→19:56)
[2023-07-15] MEDS: TAMSULOSIN 0.4 MG (FLOMAX) CAP PO SCH (14:21)
[2023-07-15 15:42] VITALS: BP 101/55
[2023-07-15] MEDS: MELATONIN 3 MG TABLET PO PRN (19:56)
[2023-07-15 20:02] VITALS: BP 105/62
[2023-07-15 23:02] VITALS: BP 117/65
[2023-07-16] MEDS: POTASSIUM CHLORIDE 20 MEQ TABLET PO SCH ×2 (05:22→09:01)
[2023-07-16] MEDS: LEVOTHYROXINE 75 MCG TABLET PO SCH (05:22)
--- NOTE | 2023-07-16 06:17 | Discharge Summary ---
CAITLYN TORREZ MD,RESIDENT 07/16/23 0617: Discharge Summary Hospital Course Problems/Dx: (1) UTI (urinary tract infection) Status: Acute Assessment & Plan: PLAN: UCx: E. coli Continue Ceftriaxone 1g IV q24hr. Will discharge with Kefelx 500mg BID for a total of 7 days of abx. (2) CHF (congestive heart failure) Status: Chronic Assessment & Plan: PLAN: Cardiology consult Echo EKG Telemetry Resume [employer] SALES ASSOCIATE coreg (3) Elevated brain natriuretic peptide (BNP) level Status: Acute Assessment & Plan: BNP 2192 PLAN: See CHF (4) Generalized weakness Status: Acute Assessment & Plan: PLAN: PT/OT IVF Encourage PO (5) CAD (coronary artery disease) Assessment & Plan: See CHF PLAN: Resume [employer] SAL[employer] ASSOCIATE Eliquis (6) Recurrent falls Status: Acute (7) Dehydration Status: Acute (8) Hypothyroidism Status: Chronic (9) Myelodysplastic syndrome Status: Chronic Assessment & Plan: PLAN: Resume [employer] SALES ASSOCIATE Revlimid Hospital Course Date of Admission: Jul 10, 2023 at 16:02 Admission Diagnosis : Family Physician/Provider: Enoc Neumann MD Date of Discharge: 07/16/23 Discharge Diagnosis: Generalized weakness, AMS, UTI Hospital Course: Pt is an 88yo male with a medical history significant for Alzheimer's dementia, CAD s/p CABGx2 2007, h/o CVA 2017, hypothyroidism, and myelodysplastic syndrome who presented to the ED for increased generalized weakness, recurrent falls, and dehydration. Per Pt's , over the last week or so, the Pt has been feeling progressively weaker with decreased PO, dehydrated, and he has had more falls than usual, one where he hit his head (07/07), CT NEG for acute process, which is out of the ordinary for him. In the ED, a UA demonstrated a UTI, associated with elevated WBCs. A pro-BNP was high elevated, CXR unremarkable for acute processes. The Pt was admitted to the ICU for further management. Upon stabilization of Pt's mentation, he was transferred to floor status. He remained stable on RA, tolerated PO and had adequate bms. He continued to exhibit altered status from baseline per his , however this was deemed a new baseline given adequate treatment of UTI, electrolyte management, and normal head CT findings. PTOT saw Pt and recommended that he be discharged to a SNF as it was not a safe discharge home as he lives with his only with no other help. Labs and Pending Lab Test: Laboratory Tests 07/16/23 06:08: White Blood Count [Pending], Red Blood Count [Pending], Hemoglobin [Pending], Hematocrit [Pending], Mean Corpuscular Volume [Pending], Mean Corpuscular Hemoglobin [Pending], Mean Corpuscular Hemoglobin Concent [Pending], Red Cell Distribution Width [Pending], Platelet Count [Pending], Mean Platelet Volume [Pending], Neutrophils (%) (Auto) [Pending], Lymphocytes (%) (Auto) [Pending], Monocytes (%) (Auto) [Pending], Eosinophils (%) (Auto) [Pending], Basophils (%) (Auto) [Pending], Neutrophils # (Auto) [Pending], Lymphocytes # (Auto) [Pending], Monocytes # (Auto) [Pending], Eosinophils # (Auto) [Pending], Basophils # (Auto) [Pending], Sodium Level [Pending], Potassium Level [Pending], Chloride Level [Pending], Carbon Dioxide Level [Pending], Anion Gap [Pending], Blood Urea Nitrogen [Pending], Creatinine [Pending], BUN/Creatinine Ratio [Pending], Glucose Level [Pending], Calcium Level [Pending], Corrected Calcium [Pending], Phosphorus Level [Pending], Magnesium Level [Pending], Total Bilirubin [Pending], Aspartate Amino Transf (AST/SGOT) [Pending], Alanine Aminotransferase (ALT/SGPT) [Pending], Alkaline Phosphatase [Pending], Total Protein [Pending], Albumin [Pending] Microbiology 07/10/23 MRSA Screen - Final, Complete MRSA not isolated 07/10/23 Blood Culture - Preliminary, Resulted 07/10/23 Urine Culture - Final, Complete Escherichia coli Home Meds Active Reported Fiber Gummies (Inulin) 2 Gram Tab.chew 1 Ea PO TID [Smarter Greens] Tab.chew 1 Ea PO BID Risperidone 0.5 Mg Tablet 0.5 Mg PO TID PRN Eliquis (Apixaban) 5 Mg Tablet 2.5 Mg PO BID TAKES OF A 2.5MG TAB Flomax (Tamsulosin HCl) 0.4 Mg Cap 0.4 Mg PO 1400 Carvedilol 6.25 Mg Tablet 6.25 Mg PO BID Levothyroxine Sodium 75 Mcg Tablet 75 Mcg PO DAILY Lisinopril 10 Mg Tablet 10 Mg PO DAILY Lenalidomide 5 Mg Capsule 5 Mg PO DAILY TAKES DAILY X 21 DAYS, IS OFF FOR 7 DAYS THEN REPEATS Assessment/Pt Instructions Dementia progression; UTI Pt discharged to SNF. Follow-up with PCP in 7-14d post discharge. Discharge Instructions Discharge Diet: No Restrictions Activity as Tolerated: Yes Discharge Physical Examination Vital Signs Vital Signs Date Time Temp Pulse Resp B/P (MAP) Pulse Ox O2 Delivery O2 Flow Rate FiO2 07/15/23 23:02 36.0 65 16 117/65 (82) 99 Room Air General Appearance: No Apparent Distress Respiratory: Chest Non Tender, Normal Breath Sounds Cardiovascular: Regular Rate, Rhythm Gastrointestinal: Non Tender, Soft Extremity: No Pedal Edema Skin: Warm/Dry Neurologic/Psychiatric: Alert, No Motor/Sensory Deficits, Other (At new baseline mentation) Allergies: Coded Allergies: lactose (Verified Allergy, Intermediate, Diarrhea, 07/10/23) Discharge Summary Date of Admission Jul 10, 2023 at 16:02 Date of Discharge Admission Diagnosis Generalized weakness, AMS Discharge Diagnosis Generalized weakness, decreased balance UTI (1) UTI (urinary tract infection) Status: Acute Assessment & Plan: PLAN: UCx: E. coli Continue Ceftriaxone 1g IV q24hr (2) CHF (congestive heart failure) Status: Chronic Assessment & Plan: PLAN: Cardiology consult Echo EKG Telemetry Resume [employer] SALES ASSOCIATE coreg (3) Elevated brain natriuretic peptide (BNP) level Status: Acute Assessment & Plan: BNP 2193 PLAN: See CHF (4) Generalized weakness Status: Acute Assessment & Plan: PLAN: PT/OT IVF Encourage PO (5) CAD (coronary artery disease) Assessment & Plan: See CHF PLAN: Resume [employer] SALES ASSOCIATE Eliquis (6) Recurrent falls Status: Acute Assessment & Plan: PLAN: See generalized weakness (7) Dehydration Status: Acute Assessment & Plan: PLAN: IVF Encourage PO (8) Hypothyroidism Status: Chronic Assessment & Plan: PLAN: Resume [employer] SALES ASSOCIATE levothyroxine (9) Myelodysplastic syndrome Status: Chronic Assessment & Plan: PLAN: Resume [employer] SALES ASSOCIATE BRIAN Nance DO 07/17/23 0701: Discharge Summary Hospital Course Was the Problem List Reviewed?: Yes Discharge Instructions Activity as Tolerated: Yes Orders & Referrals I personally performed the orellana portions of the visit, discussed case with resident and concur with resident documentation of history, physical exam, assessment and treatment plan unless otherwise noted. Discharge Physical Examination Allergies: Coded Allergies: lactose (Verified Allergy, Intermediate, Diarrhea, 07/10/23) CAITLYN TORREZ MD,RESIDENT Jul 16, 2023 06:17 BRIAN CALHOUN DO Jul 17, 2023 07:01
[2023-07-16 06:19] LABS: BASOPHILS % (AUTO) 1 % (0-10); EOSINOPHILS % (AUTO) 0 % (0-10); HEMATOCRIT 29 % (40-54); HEMOGLOBIN 9.8 g/dL (13.3-17.7); LYMPHOCYTES # (AUTO) 2.9 10^3/uL (1.0-4.0); LYMPHOCYTES % (AUTO) 64 % (12-44); MEAN CORPUSCULAR HEMOGLOBIN 39 pg (25-34); MEAN CORPUSCULAR HGB CONC 33 g/dL (32-36); MEAN CORPUSCULAR VOLUME 117 fL (80-99); MEAN PLATELET VOLUME 9.6 fL (9.0-12.2); MONOCYTES # (AUTO) 0.4 10^3/uL (0.0-1.0); MONOCYTES % (AUTO) 8 % (0-12); NEUTROPHILS # (AUTO) 1.2 10^3/uL (1.8-7.8); NEUTROPHILS % (AUTO) 26 % (42-75); PLATELET COUNT 144 10^3/uL (130-400); WHITE BLOOD COUNT 4.4 10^3/uL (4.3-11.0)
--- NOTE | 2023-07-16 06:19 | Discharge Inst-Skilled Nursing ---
Discharge Inst-Skilled NF Reconcile Patient Problems Problems Reviewed?: Yes Consult/Follow Up/Orders Skilled NF Admit to: [facility] (SNF) I certify that SNF services are required to be given on an inpatient basis because of the above named patient's need for fpc care on a continuing basis for the conditions(s) for which he/she was receiving inpatient hospital services prior to his/her transfer to the SNF. Snf Facility Order: Nursing Services, [employer]-Evaluate & Treat, Physical Therapy-Evaluate & Treat Oxygen Delivery Method: Room Air Discharge Diet: No Restrictions Daily Activity as Tolerated: Yes Resuscitation Status: Partial Code New & Resume Previous Orders Azul Valencia Jul 16, 2023 06:17 AZUL VALENCIA MD,RESIDENT Jul 16, 2023 06:19
[2023-07-16 07:10] LABS: ALBUMIN 2.8 GM/DL (3.2-4.5); POTASSIUM 3.9 MMOL/L (3.6-5.0)
[2023-07-16 07:12] LABS: CALCIUM 8.1 MG/DL (8.5-10.1)
[2023-07-16 07:13] LABS: TOTAL PROTEIN 5.6 GM/DL (6.4-8.2)
[2023-07-16 07:15] LABS: BILIRUBIN,TOTAL 0.6 MG/DL (0.1-1.0)
[2023-07-16 07:16] LABS: PHOSPHORUS 2.9 MG/DL (2.3-4.7)
[2023-07-16 07:17] LABS: CREATININE SERUM 1.61 MG/DL (0.60-1.30)
[2023-07-16 07:20] LABS: MAGNESIUM 2.3 MG/DL (1.6-2.4)
[2023-07-16 07:32] VITALS: BP 116/63
[2023-07-16] MEDS: MAGNESIUM 1 GM/100 ML IVPB 100 ML IV SCH (09:01)
[2023-07-16] MEDS: POTASSIUM CL 10MEQ/50ML IVPB 50 ML IV SCH (09:01)
[2023-07-16] MEDS: APIXABAN 2.5 MG TABLET PO SCH (09:26)
[2023-07-16] MEDS: carvediloL 12.5 MG TABLET PO SCH (09:26)
[2023-07-16] MEDS: amLODIPine 5 MG TABLET PO SCH (09:26)
[2023-07-16] MEDS ORDERED: RISP0.5T65 PO (09:45)
[2023-07-16] MEDS ORDERED: SMARTER GREENS PO (09:45)
[2023-07-16] MEDS ORDERED: CARV6.252 PO (09:45)
[2023-07-16] MEDS ORDERED: CEPH500C PO (09:45)
[2023-07-16] MEDS ORDERED: LEVO75TA6 PO (09:45)
[2023-07-16] MEDS ORDERED: INUL2TAB PO (09:45)
[2023-07-16] MEDS ORDERED: APIX5TAB PO (09:45)
[2023-07-16] MEDS ORDERED: LENA5CAP PO (09:45)
[2023-07-16] MEDS ORDERED: TMSL.4C PO (09:45)
[2023-07-16] MEDS ORDERED: LISI10TA25 PO (09:45)
[2023-07-16 10:16] VITALS: BP 116/63
== END 2023-07-16 10:17 | DRG 690 ==
LOC: EDUNIT# 12:32 → ER FS 12:33 → ICU 16:02 → 4TH 07-12 16:07
PROVIDERS: ADMIT Internal Medicine; ATTEND Internal Medicine
DX: N30.01 Acute cystitis with hematuria (principal); N17.9 Acute kidney failure, unspecified; G30.9 Alzheimer's disease, unspecified; F02.80 Dementia in other diseases classified elsewhere, unspecified severity, without behavioral disturbance, psychotic disturbance, mood disturbance, and anxiety; D46.9 Myelodysplastic syndrome, unspecified; I50.9 Heart failure, unspecified; I25.10 Atherosclerotic heart disease of native coronary artery without angina pectoris; Z95.5 Presence of coronary angioplasty implant and graft; Z79.01 Long term (current) use of anticoagulants; Z95.1 Presence of aortocoronary bypass graft; Z20.822 Contact with and (suspected) exposure to COVID-19; E86.0 Dehydration; Z87.891 Personal history of nicotine dependence; E03.9 Hypothyroidism, unspecified; K81.1 Chronic cholecystitis; Z86.73 Personal history of transient ischemic attack (TIA), and cerebral infarction without residual deficits
CPT/HCPCS: 36415; 70551; 71045; 76705; 80053; 81000; 83605; 83735; 83880; 84100; 84443; 84484; 85007; 85025; 85027; 85610; 85730; 87040; 87077; 87081; 87088; 87186; 87636; 90662; 93005; 93306

== ENCOUNTER 2023-08-12 05:33 | Emergency (ER) | payer MEDICARE ==
[~2023-08-12 05:33] MED LIST changes: +APIX2.5T PO; +APIX5TAB PO; +CARV6.25 PO; +CARV6.252 PO; +INUL2TAB PO; +LENA5CAP PO; +LEVO75CA5 PO; +LEVO75TA6 PO; +LISI10TA25 PO; +RISP0.5T65 PO; +SMARTER GREENS PO; +TMSL.4C PO
--- NOTE | 2023-08-12 06:00 | ED Fall/Injury ---
General Stated Complaint: FALL|LEFT BROW SKIN TEAR|EYE SWELLING Source: patient, EMS, correction records Exam Limitations: clinical condition (dementia and hard of hearing) History of Present Illness Date Seen by Provider: Aug 12, 2023 Time Seen by Provider: 05:33 Initial Comments 88-year-old male presenting by EMS from [facility] [place] after patient was found laying on the floor partially under his bed. He was already using a mattress that was on a very short bed frame anyway but somehow he had gotten off of the mattress and got partially under the bed frame. He has erythema and swelling to the left side of his face with a superficial skin tear in the left periorbital area. He has indentations to his scalp from where he had been laying against part of the bed frame. He also has erythema and stage I decubitus ulcer to the left shoulder with tenderness. He is able to open his eyes but again asked swelling around the left eye. He has multiple bruises and skin tears in various stages of healing on his arms and legs. Location Injury Occurred: [facility] [place] correction Occurred: other (Sometime overnight patient had rolled out of his bed and laid on the floor for an unknown period of time.) Severity: mild Injuries/Pain Location: head (Indentations in his scalp from leaning against a bed frame), face (Erythema and swelling with a superficial skin tear in the left periorbital area), upper extremity (Erythema and tenderness to the left shoulder that appears to be a stage I decubitus from pressure against his shoulder) Context: unknown Loss of Consciousness: unsure Associated Symptoms (Fall): No Abdominal Pain, No Chest Pain; Confusion (Chronic dementia); No Headache, No Nausea/Vomiting, No Shortness of Air; Troubl e Walking (Chronic), Other (Cough) Allergies and Home Medications Allergies Coded Allergies: lactose (Verified Allergy, Intermediate, Diarrhea, 07/10/23) Patient Home Medication List Home Medication List Reviewed: Yes Apixaban (Eliquis) 5 Mg Tablet, 2.5 MG PO BID Prescribed by: CAITLYN TORREZ on 07/16/23 0992 Carvedilol (Carvedilol) 6.25 Mg Tablet, 6.25 MG PO BID Prescribed by: CAITLYN TORREZ on 07/16/23 0990 Cephalexin (Cephalexin) 500 Mg Capsule, 500 MG PO BID Prescribed by: CAITLYN TORREZ on 07/16/23944 Inulin (Fiber Gummies) 2 Gram Tab.chew, 1 EA PO TID Prescribed by: CAITLYN TORREZ on 07/16/23944 Lenalidomide (Lenalidomide) 5 Mg Capsule, 5 MG PO DAILY Prescribed by: CAITLYN TORREZ on 07/16/23944 Levothyroxine Sodium (Levothyroxine Sodium) 75 Mcg Tablet, 75 MCG PO DAILY Prescribed by: CAITLYN TORREZ on 07/16/23944 Lisinopril (Lisinopril) 10 Mg Tablet, 10 MG PO DAILY Prescribed by: CAITLYN TORREZ on 07/16/23944 Risperidone (Risperidone) 0.5 Mg Tablet, 0.5 MG PO TID PRN for AGITATION Prescribed by: CAITLYN TORREZ on 07/16/23944 Tamsulosin HCl (Flomax) 0.4 Mg Cap, 0.4 MG PO 1400 Prescribed by: CAITLYN TORREZ on 07/16/23944 [Smarter Greens] , 1 EA PO BID Prescribed by: CAITLYN TORREZ on 07/16/23944 Review of Systems Review of Systems Constitutional: No chills, No fever Eyes: See HPI Ears, Nose, Mouth, Throat: no symptoms reported Respiratory: cough Cardiovascular: no symptoms reported Gastrointestinal: no symptoms reported Genitourinary: no symptoms reported Musculoskeletal: see HPI Skin: see HPI Psychiatric/Neurological: Weakness (General weakness) Past Miufccr-Jprzxn-Rtluel Hx Past Medical History Surgery/Hospitalization HX: TIA; Mylodysplastic syndrome; CABAG; Rotator cuff repair; Vertigo; High Cholesterol, Hypertension Dementia Physical Exam Vital Signs Vital Signs - First Documented Capillary Refill : Height, Weight, BMI Height: '" Weight: lbs. oz. kg; 19.36 BMI Method: General Appearance: other (Chronically ill appearance) HEENT: PERRL/EOMI; No photophobia; other (Has hard dried cerumen in bilateral canals. There is no CSF otorrhea and no bleeding noted in the canal on either side. He does not have isidro sign or raccoon sign. There are indentations in his scalp from where he was leaning against a bed railing. There is erythema and a superficial skin tear in the left periorbital area.) Neck: non-tender, supple Cardiovascular: normal peripheral pulses, regular rate, rhythm Respiratory: chest non-tender, lungs clear Neurologic/Psychiatric: alert Skin: warm/dry, other (Multiple skin tears and bruises in various stages of healing on his arms and legs.) Sandra Coma Score Best Eye Response: (4) Open Spontaneously Best Verbal Response: (4) Confused Conversation Best Motor Response: (6) Obeys Commands Sandra Total: 14 Progress/Results/Core Measures Results/Orders My Orders Orders - JAVID PAT MD Ct Head/Face/Cervical Wo (08/12/23 05:36) Shoulder 3 View Left (08/12/23 05:49) Code/Resuscitation (08/12/23 05:49) Vital Signs/I&O 08/12/23 08/12/23 05:33 05:33 Temp 36.7 36.7 Pulse 72 72 Resp 18 18 B/P (MAP) 129/69 (89) 129/69 (89) Pulse Ox 99 99 O2 Delivery Room Air Room Air Progress Progress Note #1: Progress Note Obtain CT scan of the head, face, cervical spine to evaluate for acute fracture or intracranial process. X-ray of the left shoulder to evaluate for acute bony abnormality. Progress Note #2: Progress Note X-rays of the left shoulder did not demonstrate any acute fracture. CT scan of the head, face, cervical spine showed chronic age-related changes and soft tissue swelling on the left side of his face and neck. This would be consistent with his physical exam and concern for laying against the bed railing overnight. Since he had no acute intracranial hemorrhage or fractures will discharge back to the correction. Recommend more frequent checks on the patient to ensure that he is not fallen or rolled out of bed. General wound care for the skin abrasion and skin tears as well as his soft tissue edema. Diagnostic Imaging Diagonstic Imaging: CT Plain Films/CT/US/NM/MRI: facial bones, c-spine, head Comments [facility], [place] NAME: [facility] REC#: [id number] PT STATUS: REG ER : 1935 PHYSICIAN: JAVID PAT MD ADMIT DATE: 11/09/23/ER FS Draft Date of Exam:08/12/23 CT HEAD/FACE/CERVICAL WO PROCEDURE: CT head, face, and cervical spine without contrast. TECHNIQUE: Multiple contiguous axial images were obtained through the head, neck, and facial bones without the use of intravenous contrast. Sagittal and coronal reformations through the cervical spine and facial bones were also performed. Auto Exposure Controls were utilized during the CT exam to meet ALARA standards for radiation dose reduction. INDICATION: Fall, facial swelling, pain EXAMINATION: CT brain, CT maxillofacial and CT cervical spine 08/12/2023 Comparison made to brain 07/07/2023. Chronic ischemic disease in a periventricular and deep white matter distribution. There is marked atrophy but age appropriate similar to previous. A more prominent area of extra-axial fluid or prominence noted posteriorly towards the vertex on the left stable from prior. No acute hemorrhage or infarct is seen. No mass, mass effect or midline shift. No hydrocephalus. The calvarium is intact. Partial opacification of the sinuses noted please see separate maxillofacial report. There is partial opacification of the right mastoid air cells. This is age indeterminate. IMPRESSION: Chronic findings as above. No acute intracranial process appreciated. CT CERVICAL SPINE: There is a normal height and alignment of the vertebral bodies. No subluxations or compression deformity is appreciated. No other fractures identified. There is a nonspecific area of lucency at the skull base left worse than right anteriorly possibly due to the marked osteopenia. Destructive process unlikely but follow-up could be performed. In the prevertebral soft tissues demonstrate changes of marked anasarca throughout the neck and visualized upper chest. There are likely slightly prominent lymph nodes about the neck. Additionally there appears to be possible pre-vertebral fluid of uncertain etiology. This may be emanating from the fascial abnormalities. If there is continued neck pain and in the setting of prevertebral soft tissue thickening/fluid MRI may be warranted to exclude an underlying ligamentous injury or occult fracture. CT MAXILLOFACIAL: There is partial opacification of the ethmoid air cells left worse than right. Similar findings suspected in the maxillary and sphenoid sinuses. Temporomandibular joints intact. No acute displaced fractures identified. There is however edema or thickening of the subcutaneous soft tissues throughout the forehead and extending across the orbits left worse than right. Subcutaneous edema seen throughout the lower aspect of the face and extending diffusely into the neck. There is fluid within the nasopharynx and oropharynx. IMPRESSION: 1. No acute displaced fractures identified. 2. Nonspecific soft tissue stranding and edema throughout the soft tissues of the face and into the neck left worse than right. If there is concern for an inflammatory infectious process postcontrast imaging recommended. As stated above if there is persistent neck pain and in the setting of the edema and prevertebral fluid MRI may be warranted. Dictated on workstation # [id number] Dict: 08/12/23617 Trans: 08/12/2352 [facility] [id number] Interpreted by: TOM DAHL MD Electronically signed by: Reviewed: Reviewed by Me Diagonstic Imaging: Xray Plain Films/CT/US/NM/MRI: other (Left shoulder) Comments NAME: [facility] REC#: [id number] PT STATUS: REG ER : 1935 PHYSICIAN: JAVID PAT MD ADMIT DATE: 08/12/23/ER FS Draft Date of Exam:08/12/23 SHOULDER 3 VIEW LEFT INDICATION: Fall, pain. EXAMINATION: Left shoulder 08/12/2023 FINDINGS: 3 views of the shoulder. There is chronic degenerative disease with spurring present and sclerosis. Osteopenia also seen. No dislocations appreciated with no acute fractures seen. Mild superior subluxation of the humeral head is seen suggesting a full-thickness rotator cuff tear. IMPRESSION: Chronic findings with no acute osseous abnormality. Dictated on workstation # [id number] Dict: 08/12/23616 Trans: 08/12/2324 [id number] Interpreted by: TOM DAHL MD Electronically signed by: Reviewed: Reviewed by Me Departure Impression Primary Impression: Contusion of face Qualified Codes: S00.83XA - Contusion of other part of head, initial enco unter Additional Impressions: Skin tear Chronic left shoulder pain Disposition: 01 HOME, SELF-CARE Condition: Stable Departure-Patient Inst. Decision time for Depature: 07:19 Referrals: EARLENE CARDONA MD (PCP/Family) Primary Care Physician Patient Instructions: Minor Head Injury, Adult ED, Shoulder Pain ED, Wound Care ED, Abrasions ED Add. Discharge Instructions: Try to have the nurses check on him more frequently to ensure he does not roll off the bed and hurt himself again. General wound care for skin tear and abrasions. May apply ice 10 to 15 minutes every 3-4 hours as needed for swelling and pain. Check back with primary care provider for continued concerns about his generalized weakness and frequent falls. JAVID PAT MD Aug 12, 2023 06:00
--- NOTE | 2023-08-12 06:26 | Diagnostic Imaging Report ---
INDICATION: Fall, pain. EXAMINATION: Left shoulder 08/12/2023 FINDINGS: 3 views of the shoulder. There is chronic degenerative disease with spurring present and sclerosis. Osteopenia also seen. No dislocations appreciated with no acute fractures seen. Mild superior subluxation of the humeral head is seen suggesting a full-thickness rotator cuff tear. IMPRESSION: Chronic findings with no acute osseous abnormality. Dictated by: Dictated on workstation # [id number]
--- NOTE | 2023-08-12 06:52 | Diagnostic Imaging Report ---
PROCEDURE: CT head, face, and cervical spine without contrast. TECHNIQUE: Multiple contiguous axial images were obtained through the head, neck, and facial bones without the use of intravenous contrast. Sagittal and coronal reformations through the cervical spine and facial bones were also performed. Auto Exposure Controls were utilized during the CT exam to meet ALARA standards for radiation dose reduction. INDICATION: Fall, facial swelling, pain EXAMINATION: CT brain, CT maxillofacial and CT cervical spine 08/12/2023 Comparison made to brain 07/07/2023. Chronic ischemic disease in a periventricular and deep white matter distribution. There is marked atrophy but age appropriate similar to previous. A more prominent area of extra-axial fluid or prominence noted posteriorly towards the vertex on the left stable from prior. No acute hemorrhage or infarct is seen. No mass, mass effect or midline shift. No hydrocephalus. The calvarium is intact. Partial opacification of the sinuses noted please see separate maxillofacial report. There is partial opacification of the right mastoid air cells. This is age indeterminate. IMPRESSION: Chronic findings as above. No acute intracranial process appreciated. CT CERVICAL SPINE: There is a normal height and alignment of the vertebral bodies. No subluxations or compression deformity is appreciated. No other fractures identified. There is a nonspecific area of lucency at the skull base left worse than right anteriorly possibly due to the marked osteopenia. Destructive process unlikely but follow-up could be performed. In the prevertebral soft tissues demonstrate changes of marked anasarca throughout the neck and visualized upper chest. There are likely slightly prominent lymph nodes about the neck. Additionally there appears to be possible pre-vertebral fluid of uncertain etiology. This may be emanating from the fascial abnormalities. If there is continued neck pain and in the setting of prevertebral soft tissue thickening/fluid MRI may be warranted to exclude an underlying ligamentous injury or occult fracture. CT MAXILLOFACIAL: There is partial opacification of the ethmoid air cells left worse than right. Similar findings suspected in the maxillary and sphenoid sinuses. Temporomandibular joints intact. No acute displaced fractures identified. There is however edema or thickening of the subcutaneous soft tissues throughout the forehead and extending across the orbits left worse than right. Subcutaneous edema seen throughout the lower aspect of the face and extending diffusely into the neck. There is fluid within the nasopharynx and oropharynx. IMPRESSION: 1. No acute displaced fractures identified. 2. Nonspecific soft tissue stranding and edema throughout the soft tissues of the face and into the neck left worse than right. If there is concern for an inflammatory infectious process postcontrast imaging recommended. As stated above if there is persistent neck pain and in the setting of the edema and prevertebral fluid MRI may be warranted. Dictated by: Dictated on workstation # [id number]
[2023-08-12 08:00] VITALS: BP 127/68
== END 2023-08-12 08:00 | disposition home or self-care (01) ==
LOC: EDUNIT# 05:33 → ER FS 05:33
DX: S05.42XA Penetrating wound of orbit with or without foreign body, left eye, initial encounter (principal); G89.29 Other chronic pain; M25.512 Pain in left shoulder; W06.XXXA Fall from bed, initial encounter
CPT/HCPCS: 70450; 70486; 72125; 73030

== ENCOUNTER 2023-09-04 14:04 | Inpatient (IN) | payer MEDICARE ==
[~2023-09-04] VITALS: Ht 167.7 cm; Wt 55.0 kg
[~2023-09-04 14:04] MED LIST changes: -INUL2TAB PO; +INUL2TAB8 PO
[2023-09-04 14:27] LABS: BASOPHILS % (AUTO) 0 % (0-10); EOSINOPHILS % (AUTO) 0 % (0-10); LYMPHOCYTES # (AUTO) 2.8 10^3/uL (1.0-4.0); LYMPHOCYTES % (AUTO) 63 % (12-44); MEAN CORPUSCULAR HEMOGLOBIN 40 pg (25-34); MEAN CORPUSCULAR HGB CONC 33 g/dL (32-36); MEAN CORPUSCULAR VOLUME 119 fL (80-99); MONOCYTES # (AUTO) 0.2 10^3/uL (0.0-1.0); MONOCYTES % (AUTO) 4 % (0-12); NEUTROPHILS # (AUTO) 1.5 10^3/uL (1.8-7.8); NEUTROPHILS % (AUTO) 32 % (42-75); PLATELET COUNT 135 10^3/uL (130-400); WHITE BLOOD COUNT 4.5 10^3/uL (4.3-11.0)
[2023-09-04 14:29] LABS: HEMATOCRIT 20 % (40-54); HEMOGLOBIN 6.6 g/dL (13.3-17.7)
[2023-09-04 14:44] LABS: BILIRUBIN,TOTAL 0.6 MG/DL (0.1-1.0); POTASSIUM 2.9 MMOL/L (3.6-5.0); TOTAL PROTEIN 5.5 GM/DL (6.4-8.2)
[2023-09-04 14:48] LABS: ALBUMIN 2.4 GM/DL (3.2-4.5); CREATININE SERUM 1.3 MG/DL (0.60-1.30)
[2023-09-04] MEDS ORDERED: POTASSIUM CL 10MEQ/50ML IVPB 50 ML IV ONE (15:00)
[2023-09-04] MEDS ORDERED: NS (IVPB) 100 ML 100 ML ONE (15:03)
--- NOTE | 2023-09-04 15:04 | Diagnostic Imaging Report ---
HISTORY: Cough. COMPARISON: 07/10/2023. FINDINGS: Frontal view of the chest was obtained. There is new hazy opacity throughout the right lung. There is airspace opacity in the medial left lung base. There may be a small right pleural effusion. The cardiac silhouette is normal in size. Sternotomy wires and post-CABG changes are seen. There is a large calcified granuloma at the right lung base. No pneumothorax is seen. IMPRESSION: 1. Hazy opacity throughout the right lung which may represent infiltrate. This could also be a layering effusion if the patient is not upright. 2. Left basilar airspace opacity which may be atelectasis or infection. Dictated by: Dictated on workstation # [id number]
--- NOTE | 2023-09-04 15:11 | ED Cough/URI ---
General Chief Complaint: COVID19 Suspect/Confirmed Stated Complaint: CHEST CONGESTION Nursing Triage Note: PT DIAGNOSED WITH COVID ON Aug AND IS STILL HAVING SYMPTOMS AND A COUGH. [facility] SENT PT OUT VIA NONEMERGENT TRANSFER FOR EVALUATION. Source: family, EMS, RN notes reviewed History of Present Illness Date Seen by Provider: Sep 04, 2023 Time Seen by Provider: 14:10 Initial Comments 88-year-old male patient resident of [facility] with history of coronary artery disease a status post CABG, hypertension, hyperlipidemia, dementia, CVA, frequent falls, CHF, chronic kidney disease brought in by EMS because of cough and history of recent COVID infection and August 19. Patient is nonverbal and according to his he has had cough for 4 weeks and then diagnosed with COVID on August 21 and had 5 days of antibiotic treatment without improvement of his cough. Patient also has history of myelodysplastic syndrome and does not take his special treatment of Revlimid for the last 3 weeks. Patient is bedridden and according to his he usually talks but does not have his hearing aids and does not communicate well. Allergies and Home Medications Allergies Coded Allergies: lactose (Verified Allergy, Intermediate, Diarrhea, 07/10/23) Patient Home Medication List Home Medication List Reviewed: Yes Apixaban (Eliquis) 5 Mg Tablet, 2.5 MG PO BID Prescribed by: CAITLYN TORREZ on 07/16/23944 Carvedilol (Carvedilol) 6.25 Mg Tablet, 6.25 MG PO BID Prescribed by: CAITLYN TORREZ on 07/16/23944 Cephalexin (Cephalexin) 500 Mg Capsule, 500 MG PO BID Prescribed by: CAITLYN TORREZ on 07/16/23944 Inulin (Fiber Gummies) 2 Gram Tab.chew, 1 EA PO TID Prescribed by: CAITLYN TORREZ on 07/16/23944 Lenalidomide (Lenalidomide) 5 Mg Capsule, 5 MG PO DAILY Prescribed by: CAITLYN TORREZ on 07/16/23944 Levothyroxine Sodium (Levothyroxine Sodium) 75 Mcg Tablet, 75 MCG PO DAILY Prescribed by: CAITLYN TORREZ on 07/16/23944 Lisinopril (Lisinopril) 10 Mg Tablet, 10 MG PO DAILY Prescribed by: CAITLYN TORREZ on 07/16/23944 Risperidone (Risperidone) 0.5 Mg Tablet, 0.5 MG PO TID PRN for AGITATION Prescribed by: CAITLYN TORREZ on 07/16/23944 Tamsulosin HCl (Flomax) 0.4 Mg Cap, 0.4 MG PO 1400 Prescribed by: CAITLYN TORREZ on 07/16/23944 [Smarter Greens] , 1 EA PO BID Prescribed by: CAITLYN TORREZ on 07/16/23944 Review of Systems Review of Systems Constitutional: other (Unable to obtain patient is nonverbal) Past Smkarls-Hdxigy-Eaxwwz Hx Patient Social History Tobacco Use?: No Use of E-Cig and/or Vaping dev: No Substance use?: No Alcohol Use?: No Pt feels they are or have been: No Past Medical History Surgery/Hospitalization HX: TIA; Mylodysplastic syndrome; CABG; Rotator cuff repair; Vertigo; Dysphagia; UTI's; CHF; Hypothroidism High Cholesterol, Hypertension Dementia Physical Exam Vital Signs - First Documented 09/04/23 14:10 Temp 36.8 Pulse 70 Resp 16 B/P (MAP) 136/53 (80) Pulse Ox 94 O2 Delivery Room Air Capillary Refill : Less Than 3 Seconds Height: '" Weight: lbs. oz. kg; 19.36 BMI Method: General Appearance: mild distress (Nonverbal, and frequent cough, flexion of upper and lower extremities.) Eyes: Bilateral Eye Normal Inspection Neck: non-tender Respiratory: chest non-tender, no respiratory distress, rales Cardiovascular: normal peripheral pulses, regular rate, rhythm, no gallop, no murmur Gastrointestinal: normal bowel sounds, non tender, soft Extremities: non-tender (Holding upper and lower extremity in flexion condition), swelling (Right upper extremity) Skin: normal color Nonverbal patient with flexion position of upper and lower extremity, uncooperative for exam, responding to painful stimuli and opening his eyes on demand. Focused Exam Lactate Level 09/04/23 14:42: Lactic Acid Level 1.94 Lactic Acid Level Laboratory Tests Test 09/04/23 14:42 Lactic Acid Level 1.94 MMOL/L (0.50-2.00) Progress/Results/Core Measures Suspected Sepsis SIRS Temperature: Pulse: 70 Respiratory Rate: 16 Laboratory Tests 09/04/23 14:24: White Blood Count 4.5 Blood Pressure 136 /53 Mean: 80 09/04/23 14:42: Lactic Acid Level 1.94 Laboratory Tests 09/04/23 14:24: Creatinine 1.30, Platelet Count 135, Total Bilirubin 0.6 Results/Orders Lab Results Laboratory Tests Test 09/04/23 14:15 09/04/23 14:24 09/04/23 14:42 Range/Units Influenza Type A (RT-PCR) Not Detected Not Detecte Influenza Type B (RT-PCR) Not Detected Not Detecte SARS-CoV-2 RNA (RT-PCR) Detected H Not Detecte White Blood Count 4.5 4.3-11.0 10^3/uL Red Blood Count 1.67 L 4.30-5.52 10^6/uL Hemoglobin 6.6 *L 13.3-17.7 g/dL Hematocrit 20 *L 40-54 % Mean Corpuscular Volume 119 H 80-99 fL Mean Corpuscular Hemoglobin 40 H 25-34 pg Mean Corpuscular Hemoglobin Concent 33 32-36 g/dL Red Cell Distribution Width 18.6 H 10.0-14.5 % Platelet Count 135 130-400 10^3/uL Mean Platelet Volume 10.0 9.0-12.2 fL Immature Granulocyte % (Auto) 0 % Neutrophils (%) (Auto) 32 L 42-75 % Lymphocytes (%) (Auto) 63 H 12-44 % Monocytes (%) (Auto) 4 0-12 % Eosinophils (%) (Auto) 0 0-10 % Basophils (%) (Auto) 0 0-10 % Neutrophils # (Auto) 1.5 L 1.8-7.8 10^3/uL Lymphocytes # (Auto) 2.8 1.0-4.0 10^3/uL Monocytes # (Auto) 0.2 0.0-1.0 10^3/uL Eosinophils # (Auto) 0.0 0.0-0.3 10^3/uL Basophils # (Auto) 0.0 0.0-0.1 10^3/uL Immature Granulocyte # (Auto) 0.0 0.0-0.1 10^3/uL Sodium Level 138 135-145 MMOL/L Potassium Level 2.9 L 3.6-5.0 MMOL/L Chloride Level 101 98-107 MMOL/L Carbon Dioxide Level 27 21-32 MMOL/L Anion Gap 10 5-14 MMOL/L Blood Urea Nitrogen 19 H 7-18 MG/DL Creatinine 1.30 0.60-1.30 MG/DL Estimat Glomerular Filtration Rate 53 BUN/Creatinine Ratio 15 Glucose Level 138 H 70-105 MG/DL Calcium Level 8.0 L 8.5-10.1 MG/DL Corrected Calcium 9.3 8.5-10.1 MG/DL Total Bilirubin 0.6 0.1-1.0 MG/DL Aspartate Amino Transf (AST/SGOT) 24 5-34 U/L Alanine Aminotransferase (ALT/SGPT) 9 0-55 U/L Alkaline Phosphatase 88 40-136 U/L Pro-B-Type Natriuretic Peptide 97714.0 H <450.0 PG/ML Total Protein 5.5 L 6.4-8.2 GM/DL Albumin 2.4 L 3.2-4.5 GM/DL Lactic Acid Level 1.94 0.50-2.00 MMOL/L My Orders Orders - MARLYN GUZMAN MD Cbc And Automated Diff (09/04/23 14:11) Comprehensive Metabolic Panel (09/04/23 14:11) Chest 1 View Ap/Pa Only (09/04/23 14:11) Ed Iv/Invasive Line Start (09/04/23 14:11) Lactic Acid Analyzer (09/04/23 14:11) Probnp Fs (09/04/23 14:11) Covid 19 Inhouse Test (09/04/23 14:11) Influenza A And B By Pcr (09/04/23 14:11) Potassium Cl 10meq/50ml Ivpb (Kcl 10 Meq (09/04/23 15:00) Ns (Ivpb) 100 Ml (Sodium Chloride 0.9% 1 (09/04/23 15:03) Ed Admission (Communication) (09/04/23 15:13) Medications Given in ED Current Medications Medications Dose Ordered Sig/Antonio Route Start Time Stop Time Status Last Admin Dose Admin Potassium Chloride 50 ml @ 50 mls/hr ONCE ONCE IV 09/04/23 15:00 09/04/23 15:59 09/04/23 15:13 50 MLS/HR Sodium Chloride 100 ml @ ud STK-MED ONCE .ROUTE 09/04/23 15:03 09/04/23 15:06 DC 09/04/23 15:13 50 MLS/HR Vital Signs/I&O 09/04/23 14:10 Temp 36.8 Pulse 70 Resp 16 B/P (MAP) 136/53 (80) Pulse Ox 94 O2 Delivery Room Air Capillary Refill : Less Than 3 Seconds Blood Pressure Mean: 80 Progress Note : Progress Note 88-year-old bedridden patient with cough for 4 weeks and COVID infection for almost 3 weeks without improvement of his cough. Patient did not have fever at arrival to ER and had O2 sat of 94 to 97% at room air. Patient was nonverbal. CBC, CMP, BNP, chest x-ray, COVID and flu was ordered and reviewed by me and showed positive flu test, potassium of 2.9, BNP of 15,000 and hemoglobin of 6.6. Patient has history of myelodysplastic syndrome and taking Revlimid that was stopped for the last 3 weeks after admission to rehab. Patient treated with IV potassium in ER. On-call hospitalist Dr. Willoughby/residen Dr Guan was consulted at [address] Guan accepted admission at 1509. Patient informed about test results and plan of care and need for admission and all question was answered. Diagnostic Imaging Diagonstic Imaging: Xray Plain Films/CT/US/NM/MRI: chest Comments 1 view chest x-ray interpreted by radiologist and reviewed by me and showed: [facility], [place] NAME: HOOD BARBA [facility] REC#: [id number] PT STATUS: REG ER : 1935 PHYSICIAN: MARLYN GUZMAN MD ADMIT DATE: 09/04/23/ER FS Draft Date of Exam:09/04/23 CHEST 1 VIEW AP/PA ONLY HISTORY: Cough. COMPARISON: 07/10/2023. FINDINGS: Frontal view of the chest was obtained. There is new hazy opacity throughout the right lung. There is airspace opacity in the medial left lung base. There may be a small right pleural effusion. The cardiac silhouette is normal in size. Sternotomy wires and post-CABG changes are seen. There is a large calcified granuloma at the right lung base. No pneumothorax is seen. IMPRESSION: 1. Hazy opacity throughout the right lung which may represent infiltrate. This could also be a layering effusion if the patient is not upright. 2. Left basilar airspace opacity which may be atelectasis or infection. Dictated on workstation # [id number] Dict: 09/04/23 1448 Trans: 09/04/23 1504 [id number] Interpreted by: LISA BIGGS MD Electronically signed by: Departure Communication (Admissions) Time/Spoke to Admitting Phy: 15:03 Dr. Guan on-call resident for Dr. Willoughby accepted admission at 1509. Impression Primary Impression: Anemia Qualified Codes: D64.89 - Other specified anemias Additional Impressions: COVID-19 Hypokalemia CHF (congestive heart failure) Qualified Codes: I50.9 - Heart failure, unspecified Renal insufficiency Disposition: 30 STILL A PATIENT Condition: Stable Admissions Decision to Admit Reason: Admit from ER (General) Decision to Admit/Date: Sep 04, 2023 Time/Decision to Admit Time: 15:10 Departure-Patient Inst. Referrals: EARLENE CARDONA MD (PCP/Family) Primary Care Physician MARLYN GUZMAN MD Sep 04, 2023 15:11
--- NOTE | 2023-09-04 15:50 | History & Physical-Hospitalist ---
ROHINI MONROY MD, RESIDENT 09/04/23 1010: History of Present Illness HPI/Chief Complaint CC: Cough Patient is an 88yo M with a PMHx of myelodysplastic syndrome, CHF s/p CABG, HTN who presents to the [facility] from [facility] due to persistent cough. Patient was recently positive for COVID on August 19 and completed a 5 day course of molnupiravir. However, he continued to have cough since then. Due to the persistence of the cough, he was brought in for evaluation in the ED. Per daughter at bedside, patient has continued to be weak at the facility and has had a poor appetite but did not have any other complaints. Patient was noted to have stable vital signs however, COVID retest did return positive. He was also noted to have anemia of 6.6 and potassium of 2.9. He was ultimately admitted for further management. He has been out of his Revlimid for 3 weeks as insurance will not cover the medication until he is released from [facility]. This was discussed with patient's heme/onc provider Dr. Arredondo who stated that unfortunately, he will h ave to be off the medication until he is released from the facility according to daughter's report. Source: patient Exam Limitations: no limitations Date Seen 09/04/23 Time Seen by a Provider: 20:54 Attending Physician Enoc Neumann MD PCP Admitting Physician: Attending Physician: Referring Physician Date of Admission Home Medications & Allergies Home Medications Reviewed patient Home Medication Reconciliation performed by pharmacy medication reconciliations neurophysiological technician and/or nursing. Patients Allergies have been reviewed. Allergies Allergies Coded Allergies lactose (Verified Allergy, Intermediate, Diarrhea, 07/10/23) Past Oezecxh-Coruiu-Zxbqcm Hx Patient Social History Tobacco Use?: No Use of E-Cig and/or Vaping dev: No Substance use?: No Alcohol Use?: No Pt feels they are or have been: No Immunizations Up To Date Tetanus Booster (TDap): Unknown Hepatitis A: No Hepatitis B: No Current Status Advance Directives: No Communicates: Unable To Communicate Primary Language: Nigerian Is interpretation needed?: No Past Medical History High Cholesterol, Hypertension Dementia Review of Systems Constitutional: weakness EENTM: No throat pain Respiratory: cough, phlegm; No short of breath Cardiovascular: No chest pain, No edema, No palpitations Gastrointestinal: No abdominal pain, No constipation, No diarrhea, No nausea, No vomiting Genitourinary: No dysuria Physical Exam Physical Exam Vital Signs Vital Signs - First Documented 09/04/23 14:10 Temp 36.8 Pulse 70 Resp 16 B/P (MAP) 136/53 (80) Pulse Ox 94 O2 Delivery Room Air Capillary Refill : Less Than 3 Seconds Height, Weight, BMI Height: '" Weight: lbs. oz. kg; 19.36 BMI Method: General Appearance: No Apparent Distress HEENT: Normal ENT Inspection Neck: Full Range of Motion, Normal Inspection Respiratory: Chest Non Tender, No Accessory Muscle Use, No Respiratory Distress, Crackles, Other (Wet cough) Cardiovascular: Regular Rate, Rhythm, No Edema, No Murmur Gastrointestinal: Normal Bowel Sounds, Non Tender, Soft Neurologic/Psychiatric: Other (Resting comfortably) Skin: Normal Color, Warm/Dry Results Results/Procedures Labs Laboratory Tests 09/04/23 14:24 Patient resulted labs reviewed. Imaging: Reviewed Imaging Films, Reviewed Imaging Report Imaging Chest xray (09/04/23): IMPRESSION: 1. Hazy opacity throughout the right lung which may represent infiltrate. This could also be a layering effusion if the patient is not upright. 2. Left basilar airspace opacity which may be atelectasis or infection. Assessment/Plan Admission Diagnosis Patient is an 88yo M with a PMHx of myelodysplastic syndrome, CHF s/p CABG, HTN who presents with anemia requiring transfusion and superimposed bacterial pneumonia. Admission Status: Observation Diagnosis/Problems Diagnosis/Problems (1) Acute hypoxic respiratory failure Status: Acute Assessment & Plan: Currently on 2L NC but not on any oxygen at baseline. Likely secondary to COVID and pneumonia. Plan: -Treatment as per below -Wean oxygen as tolerated (2) COVID-19 Status: Acute Assessment & Plan: Tested positive for COVID, however could be a false positive. Completed 5 day course of treatment with molnupiravir. Plan: -Continue supportive care (3) Pneumonia Status: Acute Assessment & Plan: Possible opacities on chest xray in left lung base and right lung. Given the symptoms are not improving, will treat for now. Plan: -Continue IV ceftriaxone and azithromycin (4) Anemia Status: Acute Assessment & Plan: Anemia with hemoglobin 6.6. Likely related to myelodysplastic syndrome. Inability to obtain patient's Revlimid will likely be a barrier and may result in patient presenting again to the hospital due to requiring transfusions. Plan: -Type and screen -Will transfuse 1 unit PRBC -Daily CBC -FOBT ordered -Holding DVT prophylaxis and home eliquis for now Qualifiers: Anemia type: other cause Other causes of anemia: other cause, not classified Qualified Codes: D64.89 - Other specified anemias (5) Hypokalemia Status: Acute Assessment & Plan: Potassium of 2.9. Repleting with IV and oral potassium. (6) Elevated brain natriuretic peptide (BNP) level Status: Acute Assessment & Plan: Pro-BNP elevated to >40777 however, is decreased compared to prior pro-BNP in July of 14144. No signs of fluid overload. Plan: -Continue home medications (7) Hypothyroidism Status: Chronic Assessment & Plan: Continue home medications (8) Myelodysplastic syndrome Status: Chronic Assessment & Plan: Follows with heme/onc in [place]. On treatment with lenalidomide (Revlimid) however patient has not been treated for a while since he's been at the facility. (9) CHF (congestive heart failure) Status: Chronic Assessment & Plan: Continue home medications Qualifiers: Heart failure type: unspecified Heart failure chronicity: chronic Qualified Codes: I50.9 - Heart failure, unspecified BRIAN CALHOUN DO 09/05/231916: History of Present Illness HPI/Chief Complaint CC: Cough HPI: This is an 88yoWM clinic patient of [facility] who has a h/o CABG and myelodysplastic syndrome who presented to the ER with weakness and found to have severe anemia requiring 1 unit of blood and close monitoring. Source: patient Exam Limitations: no limitations Past Qworphk-Rwgjoo-Fwugnj Hx Patient Social History Marrital Status: Employed/Student: retired Review of Systems Constitutional: see HPI Physical Exam Physical Exam General Appearance: No Apparent Distress Respiratory: Crackles, Other (Wet cough) Cardiovascular: Regular Rate, Rhythm Assessment/Plan Admission Diagnosis Assessment: COVID Weakness Myelodysplastic syndrome Plan: Supportive care Admission Status: Inpatient Order (span 2 midnights) Reason for Inpatient Admission: ROHINI MANZO MD, RESIDENT Sep 04, 2023 15:50 BRIAN CALHOUN DO Sep 05, 2023 19:17
[2023-09-04 20:00] VITALS: BP 155/73
[2023-09-04] MEDS ORDERED: POTASSIUM CHLORIDE 20 MEQ TABLET PO ONE (20:15)
[2023-09-04] MEDS ORDERED: BISACODYL 10 MG SUPPOSITORY PR PRN (20:15)
[2023-09-04] MEDS ORDERED: ONDANSETRON INJECTION 4 MG/2 ML (SDV) IV PRN (20:15)
[2023-09-04] MEDS ORDERED: NALOXONE 0.4 MG/ML 1 ML VIAL IV PRN (20:15)
[2023-09-04] MEDS ORDERED: AZITHROMYCIN INJECTION 500 MG in NS (IVPB) 250 ML 250 ML IV ONE (20:15)
[2023-09-04] MEDS ORDERED: ACETAMINOPHEN 325 MG TABLET PO PRN (20:15)
[2023-09-04] MEDS ORDERED: diphenhydrAMINE INJ 50 MG/ML VIAL IVP PRN (20:15)
[2023-09-04] MEDS ORDERED: diphenhydrAMINE 25 MG TABLET PO PRN (20:15)
[2023-09-04] MEDS ORDERED: NS IV 500 ML 500 ML IV SCH ×2 (20:15)
[2023-09-04] MEDS ORDERED: MELATONIN 3 MG TABLET PO PRN (20:15)
[2023-09-04] MEDS ORDERED: ONDANSETRON 4 MG ORAL DISSOLVE TABLET PO PRN (20:15)
[2023-09-04] MEDS ORDERED: ANTACID SUSPENSION 30 ML UDC PO PRN (20:15)
[2023-09-04] MEDS ORDERED: LACTULOSE SYRUP 10GM/15ML 30ML UDC PO PRN (20:15)
[2023-09-04] MEDS: cefTRIAXone IV/IM 1,000 MG in NS (IVPB) 50 ML 50 ML IV SCH (21:13)
[2023-09-04] MEDS ORDERED: RT-ALBUTEROL HFA 8.5 GM INHALER IH PRN (21:30)
[2023-09-04] MEDS: DOCUSATE SODIUM 100 MG CAPSULE PO SCH (21:30)
[2023-09-04] MEDS: POTASSIUM CL 10MEQ/50ML IVPB 50 ML IV SCH ×3 (21:45→23:43)
[2023-09-04 23:06] VITALS: BP 157/75
[2023-09-04 23:22] VITALS: BP 160/80
[2023-09-05] MEDS: POTASSIUM CL 10MEQ/50ML IVPB 50 ML IV SCH ×3 (00:46→08:47)
[2023-09-05] MEDS ORDERED: OMEP20CA18 PO (01:24)
[2023-09-05 01:57] VITALS: BP_DIAS 88
[2023-09-05 04:55] VITALS: BP_SYST 160; BP_SYST 170; BP_DIAS 68; BP_DIAS 88
[2023-09-05 06:12] LABS: HEMATOCRIT 23 % (40-54); HEMOGLOBIN 7.7 g/dL (13.3-17.7); MEAN CORPUSCULAR HEMOGLOBIN 36 pg (25-34); MEAN CORPUSCULAR HGB CONC 33 g/dL (32-36); MEAN CORPUSCULAR VOLUME 109 fL (80-99); MEAN PLATELET VOLUME 10.2 fL (9.0-12.2); PLATELET COUNT 133 10^3/uL (130-400)
[2023-09-05 06:15] LABS: ALBUMIN 2.6 GM/DL (3.2-4.5)
[2023-09-05 06:16] LABS: POTASSIUM 3.1 MMOL/L (3.6-5.0)
[2023-09-05 06:17] LABS: CALCIUM 7.9 MG/DL (8.5-10.1)
[2023-09-05 06:18] LABS: TOTAL PROTEIN 5.2 GM/DL (6.4-8.2)
[2023-09-05 06:22] LABS: CREATININE SERUM 1.09 MG/DL (0.60-1.30)
[2023-09-05] MEDS ORDERED: POTASSIUM CHLORIDE 20 MEQ TABLET PO ONE (07:00)
[2023-09-05 07:20] VITALS: BP_SYST 162; BP_DIAS 69; BP_DIAS 89
[2023-09-05] MEDS: LEVOTHYROXINE 75 MCG TABLET PO SCH (07:48)
[2023-09-05] MEDS: PANTOPRAZOLE 20 MG TABLET PO SCH (07:48)
[2023-09-05] MEDS ORDERED: UMECLIDINIUM BROMIDE (INCRUSE ELLIPTA) 7'S IH PRN (08:00)
[2023-09-05] MEDS ORDERED: RT-Ipratropium/Albuterol NEB 3 ML VIAL INH PRN (08:30)
[2023-09-05] MEDS ORDERED: TIOTROPIUM INH 4 GM (SPIRIVA Respimat) IH PRN (08:45)
[2023-09-05] MEDS ORDERED: RT-ALBUTEROL HFA 8.5 GM INHALER IH PRN (08:45)
[2023-09-05] MEDS: carvediloL 6.25 MG TABLET PO SCH ×2 (08:47→17:51)
[2023-09-05] MEDS: DOCUSATE SODIUM 100 MG CAPSULE PO SCH ×2 (08:47→20:48)
[2023-09-05] MEDS ORDERED: RT-Ipratropium/Albuterol NEB 3 ML VIAL INH SCH (10:00)
--- NOTE | 2023-09-05 10:20 | Progress Note ---
ROHINI MONROY MD, RESIDENT 09/05/23 1020: Subjective HPI/CC On Admission Date Seen by Provider: Sep 05, 2023 Time Seen by Provider: 09:50 CC: Cough Patient is an 88yo M with a PMHx of myelodysplastic syndrome, CHF s/p CABG, HTN who presents to the ED from [facility] due to persistent cough. Patient was recently positive for COVID on August 19 and completed a 5 day course of molnupiravir. However, he continued to have cough since then. Due to the persistence of the cough, he was brought in for evaluation in the ED. Per daughter at bedside, patient has continued to be weak at the facility and has had a poor appetite but did not have any other complaints. Patient was noted to have stable vital signs however, COVID retest did return positive. He was also noted to have anemia of 6.6 and potassium of 2.9. He was ultimately admitted for further management. He has been out of his Revlimid for 3 weeks as insurance will not cover the medication until he is released from [facility]. This was discussed with patient's heme/onc provider Dr. Arredondo who stated that unfortunately, he will have to be off the medication until he is released from the facility according to daughter's report. Subjective/Events-last exam Patient continues to be quite weak and sleepy today. However will awake to answer questions. He states that his breathing is doing well however he does continue to have a significant cough. He also sounds quite wheezy. Was able to tolerate most of his breakfast this morning but did not eat all of it. No concerns otherwise today. Review of Systems General: Fatigue HEENT: Sore Throat Pulmonary: No Dyspnea; Cough Cardiovascular: No: Chest Pain, Palpitations, Edema Gastrointestinal: No: Nausea, Vomiting, Diarrhea, Constipation Genitourinary: No Dysuria Focused Exam Lactate Level 09/04/23 14:42: Lactic Acid Level 1.94 Objective Exam Vital Signs Vital Signs Date Time Temp Pulse Resp B/P (MAP) Pulse Ox O2 Delivery O2 Flow Rate FiO2 09/05/23 08:52 96 Nasal Cannula 2.00 09/05/23 07:20 37.0 71 18 162/89 (113) Capillary Refill : Less Than 3 Seconds General Appearance: No Apparent Distress HEENT: Normal ENT Inspection Neck: Full Range of Motion, Normal Inspection Respiratory: Chest Non Tender, No Accessory Muscle Use, No Respiratory Distress, Crackles, Wheezing Cardiovascular: Regular Rate, Rhythm, No Edema, No Murmur Gastrointestinal: Normal Bowel Sounds, Non Tender, Soft Extremity: No Pedal Edema Neurologic/Psychiatric: Alert Skin: Normal Color, Warm/Dry Results/Procedures Lab Laboratory Tests 09/04/23 14:24 09/05/23 05:40 Patient resulted labs reviewed. Imaging: Reviewed Imaging Films, Reviewed Imaging Report Assessment/Plan Assessment and Plan Assess & Plan/Chief Complaint Patient is an 88yo M with a PMHx of myelodysplastic syndrome, CHF s/p CABG, HTN who presents with anemia requiring transfusion and superimposed bacterial pneumonia. Diagnosis/Problems Diagnosis/Problems (1) Acute hypoxic respiratory failure Status: Acute Assessment & Plan: Currently on 2L NC but not on any oxygen at baseline. Likely secondary to COVID and pneumonia. Plan: -Treatment as per below -Wean oxygen as tolerated (2) COVID-19 Status: Acute Assessment & Plan: Tested positive for COVID, however could be a false positiv e. Completed 5 day course of treatment with molnupiravir. Plan: -Continue supportive care -Patient sounding quite wheezy this morning and has a wet cough, ordered DuoNeb treatments -Consider Lasix (3) Pneumonia Status: Acute Assessment & Plan: Possible opacities on chest xray in left lung base and right lung. Given the symptoms are not improving, will treat for now. Plan: -Continue IV ceftriaxone and azithromycin (4) Anemia Status: Acute Assessment & Plan: Anemia with hemoglobin 6.6. Likely related to myelodysplastic syndrome. Inability to obtain patient's Revlimid will likely be a barrier and may result in patient presenting again to the hospital due to r equiring transfusions. Status post 1 unit PRBC 09/04/2023. Globin responded well and increased to 7.7 this morning. FOBT negative. Plan: -Daily CBC -Holding DVT prophylaxis and home eliquis for now Qualifiers: Qualified Codes: D64.89 - Other specified anemias (5) Hypokalemia Status: Acute Assessment & Plan: Potassium of 3.1 this morning. We will replete with oral potassium. (6) Elevated brain natriuretic peptide (BNP) level Status: Acute Assessment & Plan: Pro-BNP elevated to >01843 however, is decreased compared to prior pro-BNP in July 99984. No signs of fluid overload. Plan: -Continue home medications (7) Hypothyroidism Status: Chronic Assessment & Plan: Continue home medications (8) Myelodysplastic syndrome Status: Chronic Assessment & Plan: Follows with heme/onc in [place]. On treatment with vinay alidomide (Revlimid) however patient has not been treated for a while since he's been at the facility. 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
[2023-09-05 11:25] VITALS: BP 125/60
[2023-09-05 16:05] VITALS: BP 166/74
[2023-09-05] MEDS: TAMSULOSIN 0.4 MG (FLOMAX) CAP PO SCH (16:54)
[2023-09-05] MEDS: RT-ALBUTEROL HFA 8.5 GM INHALER IH SCH ×2 (17:02→19:39)
[2023-09-05 19:41] VITALS: BP 144/74
[2023-09-05] MEDS: cefTRIAXone IV/IM 1,000 MG in NS (IVPB) 50 ML 50 ML IV SCH (20:47)
[2023-09-05] MEDS: AZITHROMYCIN 250 MG TABLET PO SCH (20:48)
[2023-09-06] VITALS (10 sets, daily range): BP systolic 126–178; BP diastolic 62–83
[2023-09-06] MEDS: RT-ALBUTEROL HFA 8.5 GM INHALER IH SCH ×5 (04:24→23:00)
[2023-09-06 05:46] LABS: MEAN PLATELET VOLUME 10.1 fL (9.0-12.2); WHITE BLOOD COUNT 4.9 10^3/uL (4.3-11.0)
[2023-09-06 05:49] LABS: HEMOGLOBIN 6.9 g/dL (13.3-17.7)
[2023-09-06 06:01] LABS: ALBUMIN 2.4 GM/DL (3.2-4.5); POTASSIUM 3.2 MMOL/L (3.6-5.0)
[2023-09-06] MEDS: PANTOPRAZOLE 20 MG TABLET PO SCH (06:01)
[2023-09-06] MEDS: LEVOTHYROXINE 75 MCG TABLET PO SCH (06:01)
[2023-09-06 06:02] LABS: CALCIUM 8.1 MG/DL (8.5-10.1)
[2023-09-06 06:03] LABS: TOTAL PROTEIN 4.9 GM/DL (6.4-8.2)
[2023-09-06 06:05] LABS: BILIRUBIN,TOTAL 0.9 MG/DL (0.1-1.0)
[2023-09-06 06:07] LABS: CREATININE SERUM 1.16 MG/DL (0.60-1.30)
[2023-09-06] MEDS: carvediloL 6.25 MG TABLET PO SCH ×2 (09:06→17:42)
[2023-09-06] MEDS: DOCUSATE SODIUM 100 MG CAPSULE PO SCH ×2 (09:06→20:58)
[2023-09-06] MEDS ORDERED: POTASSIUM CHLORIDE 20 MEQ TABLET PO NR (09:30)
[2023-09-06] MEDS ORDERED: NS IV 500 ML 500 ML IV SCH ×2 (09:30)
[2023-09-06] MEDS ORDERED: [UNRECOGNIZED DRUG - CODE] PO (12:39)
[2023-09-06] MEDS ORDERED: IBUP-2473 PO (12:39)
[2023-09-06] MEDS ORDERED: LENA5CAP PO (12:39)
[2023-09-06] MEDS ORDERED: GUAI600T43 PO (12:39)
[2023-09-06 13:06] LABS: POTASSIUM 3.3 MMOL/L (3.6-5.0)
[2023-09-06 13:11] LABS: CREATININE SERUM 1.12 MG/DL (0.60-1.30)
[2023-09-06 13:14] LABS: MAGNESIUM 1.8 MG/DL (1.6-2.4)
[2023-09-06] MEDS: TAMSULOSIN 0.4 MG (FLOMAX) CAP PO SCH (13:55)
--- NOTE | 2023-09-06 15:59 | Progress Note ---
MADHAVI TURPIN 09/06/23 6719: Subjective Subjective/Events-last exam Mr. Reg Munroe was accompanied by his who was able to provide history and progress of his condition. She believes that he is improving but still has a cough and is quite lethargic/weak. She is able to get him to sit up and eat even if it is just a few bites. He continues to have cough due to secretions but has difficulty fully clearing his throat. Patient is quite lethargic and does not answer questions but is able to respond to stimuli. Focused Exam Lactate Level 09/04/23 14:42: Lactic Acid Level 1.94 Objective Exam Last Set of Vital Signs Vital Signs Date Time Temp Pulse Resp B/P (MAP) Pulse Ox O2 Delivery O2 Flow Rate FiO2 09/06/23 15:42 36.6 68 16 178/79 (112) 99 Nasal Cannula 2.00 Capillary Refill : Less Than 3 Seconds I&O Intake and Output 09/05/23 23:59 Intake Total 990 ml Balance 990 ml Intake Oral 940 ml IV Total 50 ml # Voids 3 # Urine Diapers 1 # Bowel Movements 1 HEENT: Mucous Memb Moist/[place] Lungs: Other (wheezing on expiration, crackles.) Heart: Regular Rate, No Murmurs Abdomen: Soft, No Tenderness Extremities: No Edema Psych/Mental Status: Other (lethargic ) Results/Procedures Lab Laboratory Tests 09/06/23 05:37: White Blood Count 4.9, Red Blood Count 1.91L, Hemoglobin 6.9*L, Hematocrit 21L, Mean Corpuscular Volume 112H, Mean Corpuscular Hemoglobin 36H, Mean Corpuscular Hemoglobin Concent 32, Red Cell Distribution Width 20.6H, Platelet Count 138, Mean Platelet Volume 10.1, Percent Immature Platelet Fraction 2.4, Sodium Level 141, Potassium Level 3.2L, Chloride Level 108H, Carbon Dioxide Level 27, Anion Gap 6, Blood Urea Nitrogen 19H, Creatinine 1.16, Estimat Glomerular Filtration Rate 60, BUN/Creatinine Ratio 16, Glucose Level 100, Calcium Level 8.1L, Corrected Calcium 9.4, Total Bilirubin 0.9, Aspartate Amino Transf (AST/SGOT) 18, Alanine Aminotransferase (ALT/SGPT) 8, Alkaline Phosphatase 65, Total Protein 4.9L, Albumin 2.4L 09/06/23 12:50: Sodium Level 139, Potassium Level 3.3L, Chloride Level 107, Carbon Dioxide Level 27, Anion Gap 5, Blood Urea Nitrogen 19H, Creatinine 1.12, Estimat Glomerular Filtration Rate 63, BUN/Creatinine Ratio 17, Glucose Level 105, Calcium Level 8.0L, Magnesium Level 1.8 Assessment/Plan Assessment/Plan (1) Pneumonia Status: Acute Assessment & Plan: Hazy opacity throughout the right lung and left basilar airspace opacity on CXR. Patient had recent COVID 19 infection. Plan: Continue IV ceftriaxone and azithromycin. (2) Anemia Status: Acute Assessment & Plan: Patient had Hb of 6.6 and after one unit of blood, Hb increased to 7.7. FOBT is negative. Hb 6.9 today. Likely related to myelodisplastic syndrome. Plan: Will transfuse one more unit of blood today. Qualifiers: Qualified Codes: D64.89 - Other specified anemias (3) CHF (congestive heart failure) Status: Chronic Assessment & Plan: Pro BNP 46144.0. no sign of volume overload. Continue home medications Qualifiers: Qualified Codes: I50.9 - Heart failure, unspecified (4) Hypothyroidism Status: Chronic Assessment & Plan: Continue home medications (5) Myelodysplastic syndrome Status: Chronic Assessment & Plan: Patient has been unable to take his revlimid due to recent stay at [facility]. KATINA ORONA MD 09/06/23 1820: Supervisory-Addendum Brief Verification & Attestation Participated in pt care: history, MDM, physical Personally performed: exam, history, MDM, supervision of care Care discussed with: Medical Student Procedures: n/a I personally performed or re-performed the history, physical exam and treatment for the E/M. I discussed the case with the Medical Student, and concur with the Medical Student documentation of history, physical exam and treatment plan unless otherwise noted. MADHAVI TURPIN Sep 06, 2023 15:59 KATINA ORONA MD Sep 06, 2023 18:20
[2023-09-06] MEDS: AZITHROMYCIN 250 MG TABLET PO SCH (20:58)
[2023-09-06] MEDS: cefTRIAXone IV/IM 1,000 MG in NS (IVPB) 50 ML 50 ML IV SCH (20:58)
[2023-09-07 03:52] VITALS: BP 179/82
[2023-09-07] MEDS: RT-ALBUTEROL HFA 8.5 GM INHALER IH SCH ×6 (04:25→22:49)
[2023-09-07 05:45] LABS: HEMOGLOBIN 8.2 g/dL (13.3-17.7)
[2023-09-07 05:47] LABS: WHITE BLOOD COUNT 4.3 10^3/uL (4.3-11.0)
[2023-09-07 05:57] LABS: ALBUMIN 2.5 GM/DL (3.2-4.5); POTASSIUM 3.2 MMOL/L (3.6-5.0)
[2023-09-07 05:59] LABS: CALCIUM 8.2 MG/DL (8.5-10.1)
[2023-09-07 06:00] LABS: TOTAL PROTEIN 5.2 GM/DL (6.4-8.2)
[2023-09-07 06:02] LABS: BILIRUBIN,TOTAL 0.9 MG/DL (0.1-1.0)
[2023-09-07 06:03] LABS: CREATININE SERUM 1.14 MG/DL (0.60-1.30)
[2023-09-07] MEDS: LEVOTHYROXINE 75 MCG TABLET PO SCH (06:05)
[2023-09-07] MEDS: PANTOPRAZOLE 20 MG TABLET PO SCH (06:05)
[2023-09-07] MEDS: TIOTROPIUM INH 4 GM (SPIRIVA Respimat) IH SCH (07:12)
[2023-09-07 07:38] VITALS: BP 184/86
[2023-09-07] MEDS: carvediloL 6.25 MG TABLET PO SCH ×2 (08:03→17:18)
[2023-09-07] MEDS: DOCUSATE SODIUM 100 MG CAPSULE PO SCH ×2 (08:28→20:45)
[2023-09-07] MEDS ORDERED: POTASSIUM CHLORIDE 20 MEQ TABLET PO NR (08:30)
[2023-09-07] MEDS: POTASSIUM CL 10MEQ/50ML IVPB 50 ML IV SCH ×4 (08:43→11:51)
[2023-09-07 11:32] VITALS: BP 178/66
--- NOTE | 2023-09-07 14:29 | Progress Note ---
MADHAVI TURPIN 09/07/23 1429: Subjective Subjective/Events-last exam Reg is has remained much the same compared to yesterday. His has continued to work with him on getting him to eat. She has noticed that yesterday he didn't eat that much and she feel that he has some difficultly with swallowing occasionally. She did give him some applesauce which she said he was able to swallow. His cough seems to be improved and he is not having as much secretions compared to yesterday. He still remains reactive to stimuli but does not respond verbally. reports that he seems to understand and follow some commands. reached out to [facility] about getting access to revlimid and they were able to give her the number of 2 pharmacies ([facility] and [facility]) that can get the prescription filled for patients that are staying at a facility. She was hoping to have this option explored and also would like to know if it would be covered by her [employer] plan. While with the patient's , there was a discussion about the patient's baseline a year ago as well as prior to when he was hospitalized. The understood that his current presentation could be the acute on chronic decline from Alzheimer's dementia and that he may not return to baseline prior July. Review of Systems General: Fatigue Pulmonary: Dyspnea, Cough Genitourinary: Incontinence Focused Exam Lactate Level 09/04/23 14:42: Lactic Acid Level 1.94 Objective Exam Last Set of Vital Signs Vital Signs Date Time Temp Pulse Resp B/P (MAP) Pulse Ox O2 Delivery O2 Flow Rate FiO2 09/07/23 14:20 97 Nasal Cannula 2.00 09/07/23 11:32 36.8 72 20 178/66 (103) Capillary Refill : Less Than 3 Seconds I&O Intake and Output 09/06/23 23:59 Intake Total 330 ml Balance 330 ml Intake Oral 330 ml # Voids 4 # Urine Diapers 2 # Bowel Movements 4 HEENT: PERRLA Lungs: Normal Air Movement, Other (bilateral crackles) Heart: Regular Rate, No Murmurs Abdomen: Normal Bowel Sounds, Soft, No Tenderness, No Masses Extremities: No Edema Skin: No Rashes, No Significant Lesion Results/Procedures Lab Laboratory Tests 09/07/23 05:14: White Blood Count 4.3, Red Blood Count 2.34L, Hemoglobin 8.2L, Hematocrit 25L, Mean Corpuscular Volume 106H, Mean Corpuscular Hemoglobin 35H, Mean Corpuscular Hemoglobin Concent 33, Red Cell Distribution Width 21.5H, Platelet Count 135, Mean Platelet Volume 10.0, Percent Immature Platelet Fraction 2.8, Sodium Level 142, Potassium Level 3.2L, Chloride Level 108H, Carbon Dioxide Level 27, Anion Gap 7, Blood Urea Nitrogen 18, Creatinine 1.14, Estimat Glomerular Filtration Rate 61, BUN/Creatinine Ratio 16, Glucose Level 92, Calcium Level 8.2L, Corrected Calcium 9.4, Total Bilirubin 0.9, Aspartate Amino Transf (AST/SGOT) 18, Alanine Aminotransferase (ALT/SGPT) 9, Alkaline Phosphatase 64, Total Prot ein 5.2L, Albumin 2.5L Assessment/Plan Assessment/Plan (1) Pneumonia Status: Acute Assessment & Plan: Hazy opacity throughout the right lung and left basilar airspace opacity on CXR. Patient had recent COVID 19 infection. Plan: Continue IV ceftriaxone and azithromycin. Continue oxygen supplementation as needed and potential discharge with home oxygen. (2) Anemia Status: Acute Assessment & Plan: Patient had Hb of 6.6 and after one unit of blood, Hb increased to 7.7. FOBT is negative. Hb 8.2 today. up from 6.9 Will continue to monitor CBC Qualifiers: Qualified Codes: D64.89 - Other specified anemias (3) CHF (congestive heart failure) Status: Chronic Assessment & Plan: Pro BNP 64261.0. no sign of volume overload. Continue home medications Qualifiers: Qualified Codes: I50.9 - Heart failure, unspecified (4) Hypothyroidism Status: Chronic Assessment & Plan: Continue home medications (5) Myelodysplastic syndrome Status: Chronic Assessment & Plan: Patient has been unable to take his revlimid due to recent stay at [facility]. KATINA ORONA MD 09/07/232118: Supervisory-Addendum Brief Verification & Attestation Participated in pt care: history, MDM, physical Personally performed: exam, history, MDM, supervision of care Care discussed with: Medical Student Procedures: n/a I personally performed or re-performed the history, physical exam and treatment for the E/M. I discussed the case with the Medical Student, and concur with the Medical Student documentation of history, physical exam and treatment plan unless otherwise noted. He continues to be quite somnolent. I was unable to get him to open his eyes to voice or touch, although he did seem to mumble somewhat in response. states he hasn't really been awake much for her or spoken much. Had a long conversation with her about his course of the last few years, about 4 years ago he had an episode of abnormal walking and had brain imaging and they were told that he had Alzheimer, he was on donepizil for a time but had side effects and stopped it. They didn't notice memory problems for a long time, but around a year ago he did start having more trouble keeping things straight and had at one point forgotten who his was. He often couldn't remember why he had gone somewhere. He had some paranoia and thought their home was a assisted for illegal residents and he would slowly open doors in an effort to sneak up on people hiding. She states he has never been very talkative, but slowly has talked less over the last year and especially the last few months since he had UTI in July and then COVID in August. She notes at nursing facility he was fairly similar to how he is now as far as interactivity and strength. Will obtain CT head given marked somnolence today, but suspect this is acute on chronic progression of his dementia, note of previous MRI in July showing severe vascular disease as well. Did discuss briefly with possibility of palliative and hospice care. She is hopeful to have him home again, would prefer he not spend the rest of his life in a facility. She does state she knows he won't go back to his previous level of functioning. MADHAVI TURPIN Sep 07, 2023 14:29 KATINA ORONA MD Sep 07, 2023 21:19
[2023-09-07] MEDS: TAMSULOSIN 0.4 MG (FLOMAX) CAP PO SCH (14:58)
--- NOTE | 2023-09-07 15:56 | Diagnostic Imaging Report ---
PROCEDURE: CT head without contrast. TECHNIQUE: Multiple contiguous axial images were obtained through the brain without the use of intravenous contrast. Auto Exposure Controls were utilized during the CT exam to meet ALARA standards for radiation dose reduction. INDICATION: Altered mental status and confusion. CT of the head on 08/12/2023, 07/07/2023. FINDINGS: Encephalomalacia within the right frontoparietal region, left frontoparietal region, and right cerebellar hemisphere. Scattered hypoattenuation within the periventricular and subcortical white matter. Generalized prominence of ventricles and cortical sulci.. No intra- or extra-axial mass or fluid collection. No acute hemorrhage. The ventricles are normal in size, shape, and morphology. The samaniego-white matter junction is normal. The subarachnoid cisterns are patent. Mucosal thickening within the sphenoid, left maxillary, and bilateral ethmoid sinuses. The visualized portions of the orbits and globes are normal. The mastoid air cells are clear. The skull intact. Impression: No acute intracranial hemorrhage. No large vascular territory pastor-white loss. No intracranial mass, midline shift, or hydrocephalus. Paranasal sinus mucosal thickening can be seen with sinusitis. Extensive chronic small vessel ischemic disease. Moderate global volume loss. Encephalomalacia within the right frontoparietal region, left frontoparietal region, and right cerebellar hemisphere. Dictated by: Dictated on workstation # [id number]
[2023-09-07 16:09] VITALS: BP 165/78
[2023-09-07 19:00] VITALS: BP 168/77
[2023-09-07] MEDS ORDERED: cefTRIAXone 1,000 MG VIAL IV/IM ONE (20:08)
[2023-09-07] MEDS: AZITHROMYCIN 250 MG TABLET PO SCH (20:44)
[2023-09-07] MEDS: cefTRIAXone IV/IM 1,000 MG in NS (IVPB) 50 ML 50 ML IV SCH (20:45)
[2023-09-07 23:48] VITALS: BP 169/79
[2023-09-08] MEDS: RT-ALBUTEROL HFA 8.5 GM INHALER IH SCH ×3 (02:46→11:00)
[2023-09-08 03:38] VITALS: BP 174/78
[2023-09-08] MEDS: LEVOTHYROXINE 75 MCG TABLET PO SCH (06:00)
[2023-09-08] MEDS: PANTOPRAZOLE 20 MG TABLET PO SCH (06:00)
[2023-09-08 06:17] LABS: WHITE BLOOD COUNT 3.6 10^3/uL (4.3-11.0)
[2023-09-08 06:19] LABS: HEMOGLOBIN 8.6 g/dL (13.3-17.7); MEAN PLATELET VOLUME 9.9 fL (9.0-12.2)
[2023-09-08 06:40] LABS: ALBUMIN 2.5 GM/DL (3.2-4.5); POTASSIUM 3.6 MMOL/L (3.6-5.0)
[2023-09-08 06:41] LABS: CALCIUM 8.2 MG/DL (8.5-10.1)
[2023-09-08 06:42] LABS: TOTAL PROTEIN 5.3 GM/DL (6.4-8.2)
[2023-09-08 06:44] LABS: BILIRUBIN,TOTAL 0.7 MG/DL (0.1-1.0)
[2023-09-08 06:46] LABS: CREATININE SERUM 1.07 MG/DL (0.60-1.30)
[2023-09-08 07:39] VITALS: BP 168/81
[2023-09-08] MEDS: TIOTROPIUM INH 4 GM (SPIRIVA Respimat) IH SCH (07:40)
[2023-09-08] MEDS: carvediloL 6.25 MG TABLET PO SCH (08:13)
[2023-09-08] MEDS: DOCUSATE SODIUM 100 MG CAPSULE PO SCH (08:13)
--- NOTE | 2023-09-08 09:15 | Physical Therapy Progress Note ---
Therapy Progress Note Attempted to see patient for PT evaluation. Patient would not awaken or respond in any way to verbal or tactile stimuli. Discussed with nurse and she reports she was unable to get him to respond verbally. Will attempt PT evaluation again as time permits. MIKAEL MANZO PT Sep 08, 2023 09:15
--- NOTE | 2023-09-08 10:17 | Progress Note ---
Objective Exam Last Set of Vital Signs Vital Signs Date Time Temp Pulse Resp B/P (MAP) Pulse Ox O2 Delivery O2 Flow Rate FiO2 09/08/23 07:39 36.7 70 20 168/81 (110) Nasal Cannula 2.00 09/08/23 07:36 93 Capillary Refill : Less Than 3 Seconds I&O Intake and Output 09/07/23 23:59 Intake Total 770 ml Balance 770 ml Intake Oral 320 ml IV Total 450 ml # Voids 2 # Urine Diapers 3 # Bowel Movements 4 Results/Procedures Lab Laboratory Tests 09/07/23 14:41: Lab Scanned Report Transfusion Reaction Form 09/08/23 05:40: White Blood Count 3.6L, Red Blood Count 2.45L, Hemoglobin 8.6L, Hematocrit 26L, Mean Corpuscular Volume 107H, Mean Corpuscular Hemoglobin 35H, Mean Corpuscular Hemoglobin Concent 33, Red Cell Distribution Width 20.6H, Platelet Count 139, Mean Platelet Volume 9.9, Percent Immature Platelet Fraction 2.7, Sodium Level 142, Potassium Level 3.6, Chloride Level 109H, Carbon Dioxide Level 27, Anion Gap 6, Blood Urea Nitrogen 17, Creatinine 1.07, Estimat Glomerular Filtration Rate 66, BUN/Creatinine Ratio 16, Glucose Level 97, Calcium Level 8.2L, Corrected Calcium 9.4, Total Bilirubin 0.7, Aspartate Amino Transf (AST/SGOT) 16, Alanine Aminotransferase (ALT/SGPT) 9, Alkaline Phosphatase 74, Total Protein 5.3L, Albumin 2.5L Radiology CT head 09/07/23 Impression: No acute intracranial hemorrhage. No large vascular territory pastor-white loss. No intracranial mass, midline shift, or hydrocephalus. Paranasal sinus mucosal thickening can be seen with sinusitis. Extensive chronic small vessel ischemic disease. Moderate global volume loss. Encephalomalacia within the right frontoparietal region, left frontoparietal region, and right cerebellar hemisphere. Assessment/Plan Assessment/Plan (1) Pneumonia Status: Acute Assessment & Plan: Hazy opacity throughout the right lung and left basilar airspace opacity on CXR. Patient had recent COVID 19 infection. Plan: Continue IV ceftriaxone and azithromycin. Continue oxygen supplementation as needed and potential discharge with home oxygen. (2) Anemia Status: Acute Assessment & Plan: Patient had Hb of 6.6 and after one unit of blood, Hb increased to 7.7. FOBT is negative. Hb 8.2 today. up from 6.9 Will continue to monitor CBC Qualifiers: Qualified Codes: D64.89 - Other specified anemias (3) CHF (congestive heart failure) Status: Chronic Assessment & Plan: Pro BNP 99549.0. no sign of volume overload. Continue home medications Qualifiers: Qualified Codes: I50.9 - Heart failure, unspecified (4) Hypothyroidism Status: Chronic Assessment & Plan: Continue home medications (5) Myelodysplastic syndrome Status: Chronic Assessment & Plan: Patient has been unable to take his revlimid due to recent stay at [facility]. MADHAVI TURPIN Sep 08, 2023 10:17
[2023-09-08] MEDS ORDERED: CEFD300C3 PO (11:43)
--- NOTE | 2023-09-08 11:45 | Discharge Inst-Skilled Nursing ---
Discharge Inst-Skilled NF Patient Instructions Patient Problems: Pneumonia Dementia Debility Consult/Follow Up/Orders Skilled NF Admit to: Certifications SNF I certify that SNF services are required to be given on an inpatient basis because of the above named patient's need for detention care on a continuing basis for the conditions(s) for which he/she was receiving inpatient hospital services prior to his/her transfer to the SNF. Senior Living Facility Order: Nursing Services, Cephalometric Tracer-Evaluate & Treat, Physical Therapy-Evaluate & Treat Oxygen Delivery Method: Nasal Cannula Oxygen Flow Rate L/min (Range): 2 Daily Activity as Tolerated: Yes Discharge Medications New, Converted or Re-Newed RX: Transmitted to Pharmacy New Medications: Cefdinir (Cefdinir) 300 Mg Capsule 300 MG PO BID for 4 Days, #8 CAP 0 Refills Continued Medications: Apixaban (Eliquis) 5 Mg Tablet 2.5 MG PO BID for 30 Days, #30 TAB TAKES 1/2 OF A 2.5MG TAB Carvedilol (Carvedilol) 6.25 Mg Tablet 6.25 MG PO BID for 30 Days, #60 TAB Guaifenesin (Mucinex) 600 Mg Tab.er.12h 600 MG PO BID, TAB Ibuprofen (Ibuprofen) 200 Mg Tablet 400 MG PO Q6H PRN for PAIN-MILD (1-4), TAB Inulin (Fiber Gummies) 2 Gram Tab.chew 1 EA PO TID for 30 Days, #90 TAB Lactase (Lactase Enzyme) 9,000 Unit Tab.chew 9000 UNIT PO TIDWM, TAB Lenalidomide (Lenalidomide) 5 Mg Capsule 5 MG PO DAILY, CAP TAKES FOR 32 DAYS THEN OFF FOR 7 DAYS Levothyroxine Sodium (Levothyroxine Sodium) 75 Mcg Tablet 75 MCG PO DAILY for 30 Days, #30 TAB Lisinopril (Lisinopril) 10 Mg Tablet 10 MG PO DAILY for 30 Days, #30 TAB Omeprazole (Omeprazole) 20 Mg Capsule.dr 20 MG PO DAILY, CAP Tamsulosin HCl (Flomax) 0.4 Mg Cap 0.4 MG PO 1400 for 30 Days, #30 CAP Katina Samson Sep 08, 2023 11:44 KATINA SAMSON MD Sep 08, 2023 11:45
--- NOTE | 2023-09-08 22:09 | Discharge Summary ---
MADHAVI TURPIN 09/08/235: Discharge Summary Hospital Course Problems/Diagnosis: (1) Pneumonia Status: Acute Assessment & Plan: Hazy opacity throughout the right lung and left basilar airspace opacity on CXR. Patient had recent COVID 19 infection. Plan: Continue IV ceftriaxone and azithromycin. Continue oxygen supplementation as needed and potential discharge with home oxygen. (2) Anemia Status: Acute Assessment & Plan: Patient had Hb of 6.6 and after one unit of blood, Hb increased to 7.7. FOBT is negative. Hb 8.2 today. up from 6.9 Will continue to monitor CBC Qualifiers: Qualified Codes: D64.89 - Other specified anemias (3) CHF (congestive heart failure) Status: Chronic Assessment & Plan: Pro BNP 89894.0. no sign of volume overload. Continue home medications Qualifiers: Qualified Codes: I50.9 - Heart failure, unspecified (4) Hypothyroidism Status: Chronic Assessment & Plan: Continue home medications (5) Myelodysplastic syndrome Status: Chronic Assessment & Plan: Patient has been unable to take his revlimid due to recent stay at [facility]. Hospital Course Date of Admission: Sep 04, 2023 at 20:03 Admission Diagnosis : Family Physician/Provider: Enoc Neumann MD Date of Discharge: 09/08/23 Discharge Diagnosis: Pneumonia, anemia Hospital Course: Patient was admitted September 04 from [facility] due to persistent cough post covid. patient was found to be anemic and had opacities on CXR. Patient was treated for suspected pneumonia with ceftriaxone and azithromycin and given 2 units of blood. Patient has been unable to take his revlamid for his myelodisplastic syndrome due to placement in a facility. Patient became more somnolent so a CT head was ordered and showed no acute hemorrhage but did show encephalomalacia and extensive chronic small vessel ischemic disease. Patient continued to require Oxygen supplementation of 2 lpm and was transferred back to [facility] with supplemental oxygen. Labs and Pending Lab Test: Laboratory Tests 09/08/23 05:40: White Blood Count 3.6L, Red Blood Count 2.45L, Hemoglobin 8.6L, Hematocrit 26L, Mean Corpuscular Volume 107H, Mean Corpuscular Hemoglobin 35H, Mean Corpuscular Hemoglobin Concent 33, Red Cell Distribution Width 20.6H, Platelet Count 139, Mean Platelet Volume 9.9, Percent Immature Platelet Fraction 2.7, Sodium Level 142, Potassium Level 3.6, Chloride Level 109H, Carbon Dioxide Level 27, Anion Gap 6, Blood Urea Nitrogen 17, Creatinine 1.07, Estimat Glomerular Filtration Rate 66, BUN/Creatinine Ratio 16, Glucose Level 97, Calcium Level 8.2L, Corrected Calcium 9.4, Total Bilirubin 0.7, Aspartate Amino Transf (AST/SGOT) 16, Alanine Aminotransferase (ALT/SGPT) 9, Alkaline Phosphatase 74, Total Protein 5.3L, Albumin 2.5L Home Meds Active Cefdinir 300 Mg Capsule 300 Mg PO BID 4 Days Fiber Gummies (Inulin) 2 Gram Tab.chew 1 Ea PO TID 30 Days Eliquis (Apixaban) 5 Mg Tablet 2.5 Mg PO BID 30 Days TAKES 1/2 OF A 2.5MG TAB Flomax (Tamsulosin HCl) 0.4 Mg Cap 0.4 Mg PO 1400 30 Days Carvedilol 6.25 Mg Tablet 6.25 Mg PO BID 30 Days Levothyroxine Sodium 75 Mcg Tablet 75 Mcg PO DAILY 30 Days Lisinopril 10 Mg Tablet 10 Mg PO DAILY 30 Days Reported Ibuprofen 200 Mg Tablet 400 Mg PO Q6H PRN Lactase Enzyme (Lactase) 9,000 Unit Tab.chew 9,000 Unit PO TIDWM Mucinex (Guaifenesin) 600 Mg Tab.er.12h 600 Mg PO BID Lenalidomide 5 Mg Capsule 5 Mg PO DAILY TAKES FOR 32 DAYS THEN OFF FOR 7 DAYS Omeprazole 20 Mg Capsule.dr 20 Mg PO DAILY Discharge Diet: No Restrictions Discharge Physical Examination Allergies: Coded Allergies: lactose (Verified Allergy, Intermediate, Diarrhea, 07/10/23) General Appearance: No Apparent Distress, Thin HEENT: PERRL/EOMI Respiratory: No Accessory Muscle Use, No Respiratory Distress, Crackles Cardiovascular: Regular Rate, Rhythm, No Edema, Normal Peripheral Pulses Gastrointestinal: Normal Bowel Sounds, Non Tender, Soft Extremity: No Pedal Edema Skin: Normal Color, Warm/Dry Discharge Summary Date of Admission Sep 04, 2023 at 20:03 Date of Discharge Sep 08, 2023 at 12:11 Discharge Date: Sep 08, 2023 Admission Diagnosis Assessment: COVID Weakness Myelodysplastic syndrome Plan: Supportive care Discharge Diagnosis (1) Acute hypoxic respiratory failure Status: Acute Assessment & Plan: Currently on 2L NC but not on any oxygen at baseline. Likely secondary to COVID and pneumonia. Plan: -Treatment as per below -Wean oxygen as tolerated (2) COVID-19 Status: Acute Assessment & Plan: Tested positive for COVID, however could be a false positive. Completed 5 day course of treatment with molnupiravir. Plan: -Continue supportive care -Patient sounding quite wheezy this morning and has a wet cough, ordered DuoNeb treatments -Consider Lasix (3) Pneumonia Status: Acute Assessment & Plan: Possible opacities on chest xray in left lung base and right lung. Given the symptoms are not improving, will treat for now. Plan: -Continue IV ceftriaxone and azithromycin (4) Anemia Status: Acute Assessment & Plan: Anemia with hemoglobin 6.6. Likely related to myelodysplastic syndrome. Inability to obtain patient's Revlimid will likely be a barrier and may result in patient presenting again to the hospital due to requiring transfusions. Status post 1 unit PRBC 09/04/2023. Globin responded well and increased to 7.7 this morning. FOBT negative. Plan: -Daily CBC -Holding DVT prophylaxis and home eliquis for now Qualifiers: Qualified Codes: D64.89 - Other specified anemias (5) Hypokalemia Status: Acute Assessment & Plan: Potassium of 3.1 this morning. We will replete with oral potassium. (6) Elevated brain natriuretic peptide (BNP) level Status: Acute Assessment & Plan: Pro-BNP elevated to >31517 however, is decreased compared to prior pro-BNP in July of 60804. No signs of fluid overload. Plan: -Continue home medications (7) Hypothyroidism Status: Chronic Assessment & Plan: Continue home medications (8) Myelodysplastic syndrome Status: Chronic Assessment & Plan: Follows with heme/onc in [place]. On treatment with lenalidomide (Revlimid) however patient has not been treated for a while since he's been at the facility. (9) CHF (congestive heart failure) Status: Chronic Assessment & Plan: Continue home medications Qualifiers: Qualified Codes: I50.9 - Heart failure, unspecified KATINA ORONA MD 09/08/23 0464: Discharge Summary Hospital Course Assessment/Pt DC Instructions Follow up via nursing facility Discharge Physical Examination Allergies: Coded Allergies: lactose (Verified Allergy, Intermediate, Diarrhea, 07/10/23) Supervisory-Addendum Brief Verification & Attestation Participated in pt care: history, MDM, physical Personally performed: exam, history, MDM, supervision of care Care discussed with: Medical Student Procedures: n/a I personally performed or re-performed the history, physical exam and treatment for the E/M. I discussed the case with the Medical Student, and concur with the Medical Student documentation of history, physical exam and treatment plan unless otherwise noted. Patient had minimal interaction, was not answering questions, generally mumbling and not speaking to anyone, his stated he had been similar to this for some time and when we reviewed the entire course of last few years it became clear that he has had progression of underlying dementia which has acutely worsened with each of his illnesses. We did briefly discuss palliative and hospice care. He was discharged back to [facility] with 2 lpm supplemental oxygen. MADHAVI TURPIN Sep 08, 2023 21:55 KATINA ORONA MD Sep 08, 2023 22:34
== END 2023-09-08 12:11 | DRG 193 ==
LOC: EDUNIT# 14:04 → ER FS 14:06 → 4TH 20:03
PROVIDERS: ADMIT Internal Medicine; ATTEND Family Medicine
DX: J15.9 Unspecified bacterial pneumonia (principal); J96.01 Acute respiratory failure with hypoxia; I13.0 Hypertensive heart and chronic kidney disease with heart failure and stage 1 through stage 4 chronic kidney disease, or unspecified chronic kidney disease; U09.9 Post COVID-19 condition, unspecified; D46.9 Myelodysplastic syndrome, unspecified; E87.6 Hypokalemia; E03.9 Hypothyroidism, unspecified; I50.9 Heart failure, unspecified; Z11.52 Encounter for screening for COVID-19; Z95.1 Presence of aortocoronary bypass graft; F03.90 Unspecified dementia, unspecified severity, without behavioral disturbance, psychotic disturbance, mood disturbance, and anxiety; N18.9 Chronic kidney disease, unspecified; E78.00 Pure hypercholesterolemia, unspecified
CPT/HCPCS: 36415; 70450; 71045; 80048; 80053; 82274; 83605; 83735; 83880; 85025; 85027; 86850; 86900; 86901; 86920; 87636; 94640